=== PATIENT | male | born 1975 | race Caucasian/White ===

== ENCOUNTER 2024-02-03 20:06 | Emergency (ER) | payer BC, SELFPAY ==
[2024-02-03 20:18] VITALS: BP 157/98; PULSE 109; TEMP 37.2; O2SAT 95; BMI 23.7
--- NOTE | 2024-02-03 20:38 | ED_ITS ---
HPI HPI - General Adult General Chief complaint: Skin/Abscess/Foreign Body Stated complaint: POSS ABCESS GONZALEZ Time Seen by Provider: 02/03/24 20:25 Source: patient Mode of arrival: walk-in Limitations: no limitations History of Present Illness HPI narrative: 49-year-old male presents for anal pain. It started today and there was no injury. He has had no bleeding or drainage. He has a history of Crohn's disease and many years ago had an abscess in that area that had to be drained. He has not had fever or abdominal pain or constipation. Related Data Home Medications ?Medication ?Instructions ?Recorded ?Confirmed omeprazole 40 mg capsule,delayed 40 mg PO DAILY 02/03/24 02/03/24 release tamsulosin 0.4 mg capsule 0.4 mg PO Q24H 02/03/24 02/03/24 Previous Rx's ?Medication ?Instructions ?Recorded acetaminophen 300 mg-codeine 30 mg 1 tab PO Q6H PRN pain 5 days #20 02/03/24 tablet tabs ciprofloxacin HCl 500 mg tablet 500 mg PO Q12H #20 tabs 02/03/24 (Cipro) metronidazole 500 mg tablet 500 mg PO TID #30 tabs 02/03/24 Allergies Allergy/AdvReac Type Severity Reaction Status Date / Time No Known Drug Allergies Allergy Verified 02/03/24 20:22 Opioid HPI Opioid Management Most Recent Opioid Data: No Data to Display Review of Systems ROS Narrative A ten point review of systems is negative except as noted above. Exam Narrative Exam Narrative: Nurses note and vital signs reviewed and patient is not hypoxic. General: The patient appears well and in no apparent distress. Patient is resting comfortably on cart. Skin: Warm, dry, no pallor noted. There is no rash noted. Head: Normocephalic, atraumatic Eye: Normal conjunctiva, no drainage Ears, Nose, Mouth, and Throat: oral mucosa is moist. Nares patent. Cardiovascular: Regular Rate and Rhythm Respiratory: Patient is in no distress, no accessory muscle use, lungs are clear to auscultation, no wheezing, rales or rhonchi Back: non-tender GI: Soft and nontender. Perianal exam is carried out. There is no hemorrhoid. He has some very slight tenderness on the left side of the anus. It is not erythematous and there is no open area or drainage or bleeding. Musculoskeletal: The patient has no evidence of calf tenderness, no pitting edema, symmetrical pulses noted bilaterally Neurological: A&O, normal speech Psychiatric: Cooperative Constitutional Vital Signs, click to edit/add: Last Vital Signs Temp 99 F 02/03/24 20:18 Pulse 109 H 02/03/24 20:18 Resp 16 02/03/24 20:18 BP 157/98 H 02/03/24 20:18 Pulse Ox 95 02/03/24 20:18 O2 Del Method Room Air 02/03/24 20:18 Course Vital Signs Vital signs: Vital Signs Temperature 99 F 02/03/24 20:18 Pulse Rate 109 H 02/03/24 20:18 Respiratory Rate 16 02/03/24 20:18 Blood Pressure 157/98 H 02/03/24 20:18 Pulse Oximetry 95 02/03/24 20:18 Oxygen Delivery Method Room Air 02/03/24 20:18 Temperature 99 F 02/03/24 20:18 Pulse Rate 109 H 02/03/24 20:18 Respiratory Rate 16 02/03/24 20:18 Blood Pressure 157/98 H 02/03/24 20:18 Pulse Oximetry 95 02/03/24 20:18 Oxygen Delivery Method Room Air 02/03/24 20:18 Medical Decision Making MDM Narrative Medical decision making narrative: There is no hemorrhoid or abscess present. Incision and drainage is not indicated. 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 He was also recommended warm soaks. Treatment diagnosis and follow-up were discussed with the patient. Differential Diagnosis Differential Diagnosis: Fissure, hemorrhoid, abscess Discharge Plan Discharge Stand Alone Forms: Portal Instructions Chief Complaint: Skin/Abscess/Foreign Body Clinical Impression: Anal pain Patient Disposition: Home, Self-Care Time of Disposition Decision: 20:35 Condition: Good Mode of Transportation: Private Vehicle Prescriptions / Home Meds: New acetaminophen-codeine 300-30 mg tablet 1 tab PO Q6H PRN (Reason: pain) 5 Days Qty: 20 0RF ciprofloxacin HCl [Cipro] 500 mg tablet 500 mg PO Q12H Qty: 20 0RF metronidazole 500 mg tablet 500 mg PO TID Qty: 30 0RF No Action omeprazole 40 mg capsule,delayed release(DR/EC) 40 mg PO DAILY tamsulosin 0.4 mg capsule 0.4 mg PO Q24H Print Language: Albanian Instructions: Rectal Pain (ED) Additional Instructions: Warm soaks for 15 minutes 4 times a day 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
[2024-02-03] MEDS: HYDROCODONE/ACET 5-325 MG TABLET 1 TAB PO (21:11)
[2024-02-03] MEDS: CIPROFLOXACIN HCL 500 MG TABLET PO (21:11)
[2024-02-03] MEDS: METRONIDAZOLE 250 MG TABLET 500 MG PO (21:11)
== END 2024-02-03 21:16 | disposition home or self-care (01) ==
PROVIDERS: Emergency Provider Emergency Medicine; PCP Family Medicine
DX: K62.89 Other specified diseases of anus and rectum (principal); K50.90 Crohn's disease, unspecified, without complications
CPT/HCPCS: 99283

== ENCOUNTER 2024-09-02 09:01 | Outpatient (OUT) | payer BC, SELFPAY ==
--- NOTE | 2024-09-02 | XR_ITS ---
The [address] [address] Patient Name: GRACIELA KANG MRN: [id number] date: 1975 Sex: M Assigned Patient Location: RAD Current Patient Location: [facility] Accession/Order Number: [id number] Exam Date: 09/02/2024 10:06 Report Date: 09/02/2024 11:58 At the request of: JAQUAN JARRELL Procedure: XR lumbar spine min 4V EXAMINATION: XR lumbar spine min 4V HISTORY: LUMBAR PAIN COMPARISON: No relevant comparison available. FINDINGS: BONES: Mild levocurvature centered at T12. Moderate spondylosis and mild facet osteoarthropathy DISC SPACES: Normal. No significant disc height narrowing, subluxation, or endplate abnormality. PARASPINOUS: Negative. No paraspinous abnormality is seen. OTHER: No transient spondylolisthesis with flexion or extension XR/XR lumbar spine min 4V IMPRESSION: Degenerative changes with no dynamic instability Electronically authenticated by: SUAD HOOD Date: 09/02/2024 11:58
--- NOTE | 2024-09-02 09:06 | XR_ITS ---
The [address] [address] Patient Name: GRACIELA KANG MRN: [id number] date: 1975 Sex: M Assigned Patient Location: RAD Current Patient Location: RAD Accession/Order Number: [id number] Exam Date: 09/02/2024 09:15 Report Date: 09/02/2024 09:57 At the request of: JAQUAN JARRELL Procedure: XR foot RT min 3V PROCEDURE: XR foot RT min 3V, XR ankle RT min 3V COMPARISON: None. HISTORY: right foot pain FINDINGS: BONES:No acute fracture or dislocation of the foot or ankle. Moderate osteoarthropathy of the first metatarsal-phalangeal joint with joint space narrowing marginal osteophyte formation SOFT TISSUES:Negative. No visible soft tissue swelling. EFFUSION:None visible. OTHER: Negative. XR/XR foot RT min 3V IMPRESSION: Moderate first metatarsal-phalangeal joint osteoarthritis Electronically authenticated by: SUAD HOOD Date: 09/02/2024 09:57
--- NOTE | 2024-09-02 09:07 | XR_ITS ---
The [address] [address] Patient Name: GRACIELA KANG MRN: [id number] date: 1975 Sex: M Assigned Patient Location: RAD Current Patient Location: RAD Accession/Order Number: [id number] Exam Date: 09/02/2024 09:15 Report Date: 09/02/2024 09:57 At the request of: JAQUAN JARRELL Procedure: XR ankle RT min 3V PROCEDURE: XR foot RT min 3V, XR ankle RT min 3V COMPARISON: None. HISTORY: right foot pain FINDINGS: BONES:No acute fracture or dislocation of the foot or ankle. Moderate osteoarthropathy of the first metatarsal-phalangeal joint with joint space narrowing marginal osteophyte formation SOFT TISSUES:Negative. No visible soft tissue swelling. EFFUSION:None visible. OTHER: Negative. XR/XR ankle RT min 3V IMPRESSION: Moderate first metatarsal-phalangeal joint osteoarthritis Electronically authenticated by: SUAD HOOD Date: 09/02/2024 09:57
== END 2024-09-02 09:02 | disposition home or self-care (01) ==
LOC: RAD 09:01
PROVIDERS: PCP Family Medicine; Visit Provider Podiatrist Foot & Ankle Surgery
DX: M25.571 Pain in right ankle and joints of right foot (principal); M54.50 Low back pain, unspecified; M51.369 Other intervertebral disc degeneration, lumbar region without mention of lumbar back pain or lower extremity pain; M19.071 Primary osteoarthritis, right ankle and foot
CPT/HCPCS: 72110; 73610; 73630

== ENCOUNTER 2024-10-14 06:40 | Outpatient (OUT) | payer BC, SELFPAY ==
--- NOTE | 2024-10-14 06:42 | MR_ITS ---
[address] [address] Patient Name: GRACIELA KANG MRN: [id number] date: 1975 Sex: M Assigned Patient Location: MRI Current Patient Location: MRI Accession/Order Number: [id number] Exam Date: 10/14/2024 14:49 Report Date: 10/14/2024 14:55 At the request of: RUY GRIFFITHS MD Procedure: MR lumbar spine wo con MR lumbar spine wo con 10/14/2024 7:19 AM SIGNS AND SYMPTOMS: ^low back pain without sciatica M54.50 PROTOCOL: Multiplanar multisequence MR images of the lumbar spine were obtained without IV contrast COMPARISON: 09/02/2024 FINDINGS: The bones of the lumbar spine are in anatomic alignment. There is preservation of vertebral body heights. There is mild to moderate intervertebral disc height loss at L5-S1. There is mild intervertebral disc height loss at T12-L1. There is moderate to severe disc height loss at T11-T12. Mild Modic type II fatty endplate degenerative changes are noted at L5-S1 with anterior osteophyte formation. The conus terminates at the superior endplate of the L2 vertebral body level. No epidural or paraspinous fluid collection is appreciated. At T12-L1: There is a broad-based disc bulge contributing to mild spinal canal narrowing with mild left neural foraminal stenosis. At L1-L2: There is a normal disc, central canal, and neural foramen. At L2-L3: There is a normal disc, central canal, and neural foramen. At L3-L4: There is a normal disc, central canal, and neural foramen. At L4-L5: There is a broad-based disc bulge with facet hypertrophy. There is mild spinal canal stenosis with mild bilateral neural foraminal narrowing. At L5-S1: There is a circumferential disc bulge with a focal central disc extrusion along with mild caudal migration. There is mild spinal canal narrowing with mild to moderate bilateral neural foraminal stenosis. MR/MR lumbar spine wo con IMPRESSION: At L5-S1: There is a circumferential disc bulge with a focal central disc extrusion along with mild caudal migration. There is mild spinal canal narrowing with mild to moderate bilateral neural foraminal stenosis. At L4-L5: There is a broad-based disc bulge with facet hypertrophy. There is mild spinal canal stenosis with mild bilateral neural foraminal narrowing. At T12-L1: There is a broad-based disc bulge contributing to mild spinal canal narrowing with mild left neural foraminal stenosis. Impression dictated by: Clemente Austin M.D.10/14/2024 2:55 PM Dictation Location: [place] [address] Electronically authenticated by: [id number] Y Date: 10/14/2024 14:55
--- OUTSIDE RECORDS SUMMARY | 2024-10-14 06:42 | XMS_ITS | CCD ---
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 Attending Unavailable MoJuma jackson A. Admitting Unavailable Jamal Kang MD Primary Care Provider [phone] [facility] PHARMACY RESIDENT-AMMONIA BOX TENDERAnna Unavailable [phone] Juma Yanez A. Attending Unavailable Mouchli, Mohamad A. Admitting Unavailable Mouchli, Mohamad A. Attending Unavailable Mouchli Mohamad A. Attending Unavailable Mouchli, Mohamad A. Attending Unavailable Mouchli, Mohamad A. Referring Unavailable Mouchli, Mohamad A. Admitting Unavailable Mouchli, Mohamad A. Attending Unavailable YOHANA SEWELL Attending Unavailable ANNA CARR Referring Unavailable ANNA CARR Attending Unavailable ANNA CARR Attending Unavailable RAQUEL DEUTSCH Attending Unavailable MARYAN ACEVEDO Attending Unavailable FELTANNA PIERCE A Attending Unavailable Mouchli, Mohamad A. Admitting Unavailable Mouchli, Mohamad A. Attending Unavailable Momeaganli, Mohamad A. Referring Unavailable Deisy Dunaway Attending Unavaila Deisy Kay Attending Unavaila ble Renata Mohamad A. Attending Unavailable Medications Current Medications Medication Drug Class(es) Dates Sig (Normalized) Sig (Original) diphenhydrAMINE hydrochloride 20 mg/ml / zinc acetate 1 mg/ml topical cream (8 sources) Histamine-1 Receptor Antagonist Start: 4 End: 5 diphenhydrAMINE-zinc acetate (Benadryl Extra Strength) cream Indications: Other atopic dermatitis Apply topically 4 (four) times a day as needed for itching 35 g 11 08/12/2024 08/12/2025 Active famotidine 40 mg oral tablet (19 sources) Histamine-2 Receptor Antagonist Start: 3 End: 4 take 1 tablet by mouth at bedtime famotidine (Pepcid) 40 MG tablet Indications: Gastroesophageal reflux disease, unspecified whether esophagitis present TAKE 1 TABLET BY MOUTH AT BEDTIME 90 tablet 3 04/21/2024 Active mesalamine 500 mg extended release oral capsule (20 sources) Aminosalicylate Start: 3 take 2 capsules by mouth four times daily mesalamine 500 mg Cap-ER 1,000 mg = 2 cap(s), Oral, QID, # 720 cap(s), Refills(s) 1, Pharmacy: [facility]/pharmacy #[id number], 182, cm, 02/28/24 8:07:00 EDT, Height/Length Dosing, 79.2, kg, 02/28/24 8:07:00 EDT, Weight Dosing Start Date: 03/10/24 Status: Ordered Start: 10-30-2021 take 2 capsules by m outh four times daily mesalamine 500 mg Cap-ER 1,000 mg = 2 cap(s), Oral, QID, # 240 cap(s), Refills(s) 11, Pharmacy: [facility]/pharmacy #[id number], 182, cm, 10/30/21 10:41:00 EST, Height/Length Dosing, 81.5, kg, 10/30/21 10:41:00 EST, Weight Dosing Start Date: 10/30/21 Status: Ordered omeprazole 40 mg delayed release oral capsule (20 sources) Proton Pump Inhibitor Start: 05-26-2022 take 1 capsule by mouth before mealtime omeprazole (PriLOSEC) [address] capsule Indications: Gastroesophageal reflux disease, unspecified whether esophagitis present Take 1 capsule (40 mg) by mouth in the morning. Take before meals. Do not crush or chew.. 90 capsule 3 02/21/2024 Active omeprazole 40 mg Cap-DR (3 sources) Start: 11-28-2021 End: 05-27-2022 take 1 capsule by mouth once daily omeprazole 40 mg Cap-DR 40 mg = 1 cap(s), Oral, Daily, X 90 day(s), # 90 cap(s), Refills(s) 1, Pharmacy: [facility]/pharmacy #[id number], 182, cm, 10/30/21 10:41:00 EST, Height/Length Dosing, 81.5, kg, 10/30/21 10:41:00 EST, Weight Dosing Start Date: 11/28/21 Stop Date: 05/27/22 Status: Ordered polyethylene glycol 3350 [id number] mg / potassium chloride 1480 mg / sodium bicarbonate 5720 mg / sodium chloride 41560 mg powder for oral solution (1 source) Osmotic Laxative Start: 12-20-2022 take 1 dose by mouth once NuLYTELY Traverse oral powder for reconstitution See Instructions, 1 EA, Refill(s) 0, Per physician instructions, prior to colonoscopy., [facility]/pharmacy #[id number], 182, cm, 12/20/22 13:35:00 EDT, Height/Length Dosing, 77.7, kg, 12/20/22 13:35:00 EDT, Weight Dosing Start Date: 12/20/22 Status: Ordered predniSONE 20 mg oral tablet (8 sources) Start: 08-12-2024 End: 09-17-2024 predniSONE (Deltasone) 20 MG tablet Indications: Other atopic dermatitis 2 tablets for 7 days and then 1 tablet for 7 days 21 tablet 08/12/2024 09/17/2024 Discontinued (Therapy completed) tacrolimus 0.001 mg/mg topical ointment (8 sources) Calcineurin Inhibitor Immunosuppressant Start: 08-03-2024 tacrolimus (Protopic) 0.1 % ointment APPLY TO AFFECTED AREA EVERY 12 HOURS *HOLD WHEN CLEAR* 08/03/2024 Active tamsulosin hydrochloride 0.4 mg oral capsule (20 sources) alpha-Adrenergic Theresa Start: 01-11-2021 take 1 capsule by mouth once daily tamsulosin (Flomax) 0.4 MG 24 hr capsule Indications: Benign prostatic hyperplasia without lower urinary tract symptoms Take 1 capsule (0.4 mg) by mouth Daily 90 capsule 3 02/21/2024 Active triamcinolone acetonide 1 mg/ml topical cream (10 sources) Corticosteroid triamcinolone (Kenalog) 0.1 % cream 1 application 1 (one) time each day at the same time. Active Problems Active Problems Problem Classification Problem Date Documented Da te Episodic/Chronic Allergic reactions (8 sources) Atopic dermatitis; Translations: [Other atopic dermatitis] 08-12-2024 Chronic Anal and rectal conditions (7 sources) Anal pain 02-20-2024 Episodic Esophageal disorders (20 sources) Gastroesophageal reflux disease; Translations: [Gastroesophageal reflux disease without esophagitis] Onset: 3 02-16-2021 Chronic Essential hypertension (7 sources) Essential hypertension 02-20-2024 Chronic Other and unspecified benign neoplasm (15 sources) Polyp of colon; Translations: [Polyp of colon] Onset: 3 04-19-2021 Episodic Other disorders of stomach and duodenum (7 sources) Indigestion 02-20-2024 Episodic Other gastrointestinal disorders (2 sources) Abnormal feces; Translations: [Other fecal abnormalities] Onset: Episodic Other gastrointestinal disorders (6 sources) Loose stool 02-28-2024 Episodic Regional enteritis and ulcerative colitis (16 sources) Regional ileocolitis; Translations: [Crohn's disease of small AND large intestines] Onset: 3 02-16-2021 Chronic Residual codes; unclassified (1 source) Tobacco user 08-14-2024 Episodic Past or Other Problems Problem Classification Problem Date Documented Da te Episodic/Chronic Nausea and vomiting (7 sources) Nausea and vomiting Onset: 10-30-2021 02-20-2024 Episodic Results Test Name Value Interpretation Reference Range Facility Patient Letter FTon 2024 Patient Letter [facility] Patient [place] [facility] September 21, 2024 GRACIELA KANG [address] [place] [id number] : 1975 [address] way concern, the above patient has been our care here at [facility] since 2020 for diagnosis of Crohn's disease (Chronic inflammatory bowel disease). Patient has been treated with oral therapy in the past and is now being treated with Hadlima until further notice. If there are any further questions, concerns or any issues please contact our office at [phone]. Thank you, [facility] Juma Yanez MD Normal [facility] Lab Miscellaneous-LCon 08-18 Lab Miscellaneous COMMENT Invalid Interpretation Code [facility] Comment on above: Result Comment: Test Ordered: [id number] TPMT and NUDT15 Genotyping TPMT Genotype *1/*1 L9 This test was developed and its performance characteristics determined by [facility]. It has not been cleared or approved by the Food and Drug Administration. TPMT Metabolic Activity Normal L9 This test was developed and its performance characteristics determined by [facility]. It has not been cleared or approved by the Food and Drug Administration. NUDT15 Genotype *1/*1 L9 This test was developed and its performance characteristics determined by [facility]. It has not been cleared or approved by the Food and Drug Administration. NUDT15 Metabolic Activity Normal L9 This test was developed and its performance characteristics determined by [facility]. It has not been cleared or approved by the Food and Drug Administration. Director Review Comment L9 Roger Brody MD, PhD Director Warp 9 Interpretation Comment L9 The thiopurine methyltransferase (TPMT) and nudix hydrolase (NUDT15) genes encode drug-metabolizing enzymes involved in the metabolism of several clinically important drugs including the immunosuppressants azathioprine, mercaptopurine and thioguanine. The TPMT and NUDT15 enzymes have similar functions in a shared thiopurine-metabolizing pathway; genotype and metabolic activity for TPMT and NUDT15 may therefore be considered together when assessing possible effects on drug response. Individuals with some variant TPMT and NUDT15 alleles may experience a reduced therapeutic response and may be at risk for side effects from drugs that are metabolized by TPMT and NUDT15. TPMT and NUDT15 genotype information can be utilized to predict TPMT and NUDT15 metabolic activity which can be used as an aid in determining a therapeutic strategy for drugs that are metabolized by TPMT and NUDT15. For example, thiopurine use in an individual with poor or intermediate TPMT and/or NUDT15 metabolism is associated with an accumulation of cytotoxic metabolites and an increased risk for myelosuppression. In these instances, alternative doses or drugs may be considered. .... Variation in the TPMT and NUDT15 genes can result in normal (NM), intermediate (IM), possible intermediate (Poss IM), poor (PM) and indeterminate (IND) drug-metabolizing phenotypes. In general, relative to the *1 allele (normal function), TPMT *2, *3A, *3B, *3C and NUDT15 *2 and *3 alleles have no function whilst the NUDT15*4 allele has an uncertain function. The exact effect of a particular genotype on individual drugs can vary. In addition to genotype, the metabolism of drugs may be influenced by additional factors that include environmental, dietary and other medications; these factors and others should be considered prior to initiating a new therapy. All results must be interpreted in the context of other test results and clinical findings. Results do not rule out the possibility of other variant alleles in TPMT and NUDT15 or variant alleles in other drug metabolism pathways. Patients should speak with their health care provider about the individual results of this test. TPMT and NUDT15 Information Comment L9 Methodology: ... DNA analysis is performed by allele-specific real-time polymerase chain reactions (RT-PCR) to detect single-nucleotide polymorphisms (SNPs) within the TPMT and NUDT15 genes and to assign variant TPMT *2, *3A, *3B and *3C and NUDT15 *2 or *3 and *4 alleles. *1 denotes detection of the reference (wild-type) sequence at the assessed alleles. No other variants in this gene are detected by this assay. ... This assay cannot distinguish between NUDT15 *2 and *3 alleles, genotype reported as *2 or *3; this distinction is not thought to be clinically relevant because both have no function. This assay is also unable to distinguish between the more likely TPMT *1/*3A genotype (intermediate TPMT activity) and the very rare TPMT *3B/*3C genotype (poor TMPT activity), genotype reported as *1/*3A or unlikely *3B/*3C, metabolic activity reported as likely intermediate; these possibilities can be distinguished by testing TPMT enzyme levels [Test #607651]. ... Molecular-based testing is highly accurate, but as in any laboratory test rare diagnostic errors may occur. ... References: ... 1. https://www.fda.gov/medical-devices/precision-medicine/table- pharmacogenetic-association. 2. Cheryl PARRA., Brien Hull, Josue Hull, et al. Clinical Pharmacogenetics Implementation Consortium Guideline for Thiopurine Dosing Based on TPMT and NUDT15 Genotypes: 2018 Update. Clinical Pharmacology and Therapeutics. 2019; Vol 105(5). 3. ALMA Higgins., Carleen FLYNN., Celso FARIAS., et al. TPMT and NUDT15 Genotyping Recommendations: A Joint Consensus Recommendation of the Association for Molecular Pathology, Clinical Pharmaco- genetics Implementation Consortium, [employer], Dut (more content not included)... Performed By: #### 1 [id number] #### [facility] [address] [place] [address] Gastroenterology Office/Clin ic Noteon 08-14-2024 Gastroenterology Office/Clinic Note Gastroenterology Office/Clinic Note Chief Complaint Crohns follow up- diarrhrea HPI Staff Patient is a(n) 49 year old male who presents today for a(n) 4 month follow-up. Any IBD symptoms? Diarrhea and loose stool Denies blood thinners. Denies GLP-1 agonists. Last visit w/Dr. Yanez: Assessment/Plan 1. Crohn's disease of both small and large intestine (K50.80: Crohn's disease of both small and large intestine without complications) 2. Acid reflux (K21.9: Gastro-esophageal reflux disease without esophagitis) 3. Colon polyp (K63.5: Polyp of colon) 4. Loose stools (R19.5: Other fecal abnormalities) Advised to take Pentasa 4 g all at once Check CBC, CMP, iron studies, vitamin D levels, CRP, stool calprotectin, hep B panel, QuantiFERON, and TPMT Follow-up after 4 to 5 months to determine about repeating colonoscopy based on the above results Last colonoscopy 03/23/24 Findings 1.patchy inflammation in the colon with small ulcers consistent with hx of CD s/p biopsies 2. patchy erythema in the TI s/p biopsies 3. internal hemorrhoids on retroflexion Impression and Plan Colitis and ileitis consistent with hx of CD s/p biopsies internal hemorrhoids Pathology: Diagnosis Comment (Verified) Histological findings are consistent with inflammatory bowel disease. The patient's history of Crohn disease is noted. Recommend clinical, endoscopic and pathologic correlation. Final Diagnosis (Verified) A: TERMINAL ILEUM, BIOPSY: - Small bowel mucosa with increased lymphoplasmacytic infiltrate in lamina propria and focal mucosal erosion. - No evidence of granulomas, dysplasia or malignancy identified. B: COLON, RIGHT, BIOPSY: - Benign colonic mucosa with lymphoid aggregates and increased lymphoplasmacytic infiltrate in lamina propria. - No evidence of granulomas, dysplasia or malignancy identified. C: COLON, LEFT, BIOPSY: - Moderate chronic active colitis. - No evidence of granulomas, dysplasia or malignancy identified. - See Comment. D: COLON, TRANSVERSE, BIOPSY: - Benign colonic mucosa with lymphoid aggregate, increased lymphoplasmacytic infiltrate in lamina propria and focal architectural disarray. - No evidence of granulomas, dysplasia or malignancy identified. - See comment E: RECTUM, BIOPSY: - Benign colonic mucosa with increased lymphoplasmacytic infiltrate in lamina propria and focal architectural disarray. - No evidence of granulomas, dysplasia or malignancy identified - See comment. Last EGD w/ Dr Smith 12/26/21 1. Normal esophagus, z-line noted at 35cm. 2. Normal gastric mucosa, random gastric biopsies obtained for H pylori. 3. Small hiatal hernia, 2cm 4. Normal duodenum Pathology: Diagnosis Comment (Verified) No H. pylori microorganisms identified with immunostain. Final Diagnosis (Verified) STOMACH, BIOPSY: ??? GASTRIC MUCOSA WITH MILD CHRONIC INFLAMMATION IN LAMINA PROPRIA. ??? PROTON PUMP INHIBITOR INDUCED CHANGES SUGGESTED. CTE 03/13/24 IMPRESSION: NO ACUTE ABDOMINOPELVIC PROCESS. GES 12/18/21 IMPRESSION: GASTRIC EMPTYING WITHIN NORMAL LIMITS. Laboratory Results CBC CMP Basophil Absolute: 0.1 E9/L (08/07/24) A/G Ratio: 1.3 (08/07/24) Basophil Auto: 0.8 % (08/07/24) AGAP: 12 mEq/L (08/07/24) Eos Absolute: 0.2 E9/L (08/07/24) Albumin Lvl: 4.5 gm/dL (08/07/24) Eos Auto: 2.7 % (08/07/24) Alk Phos: 66 Int._Unit/L (08/07/24) Hct: 42.8 % (08/07/24) ALT: 37 Int._Unit/L (08/07/24) HGB: 15 gm/dL (08/07/24) AST: 46 Int._Unit/L High (08/07/24) Lymph Absolute: 1.9 E9/L (08/07/24) Bili Total: 0.7 mg/dL (08/07/24) Lymph Auto: 26.1 % (08/07/24) BUN: 4 mg/dL Low (08/07/24) MCH: 36.7 pg High (08/07/24) BUN/Creat Ratio: 6 Low (08/07/24) MCHC: 35.1 gm/dL (08/07/24) Calcium Lvl: 9.3 mg/dL (08/07/24) MCV: 104.5 fL High (08/07/24) Chloride: 99 mmol/L Low (08/07/24) [place] Absolute: 0.5 E9/L (08/07/24) CO2: 29 mmol/L (08/07/24) [place] Auto: 6.9 % (08/07/24) Creatinine: 0.7 mg/dL (08/07/24) MPV: 7.1 fL (08/07/24) Globulin: 3.5 gm/dL (08/07/24) Neutro Absolute: 4.5 E9/L (08/07/24) Glucose Lvl: 133 mg/dL (08/07/24) Neutro Auto: 63.5 % (08/07/24) Potassium Lvl: 3.6 mmol/L (08/07/24) Platelet: 232 E9/L (08/07/24) Sodium Lvl: 136 mmol/L (08/07/24) RBC: 4.1 E12/L Low (08/07/24) Total Protein: 8 gm/dL High (08/07/24) RDW: 12.7 % (08/07/24) WBC: 7.2 E9/L (08/07/24) Liver Studies Ferritin Lvl: 175 ng/mL (08/07/24) HCV Ab: Non Reactive (08/07/24) Hep A IgM: Negative (08/07/24) Hep B Core IgM: Negative (08/07/24) Hep Bs Ag: Negative (08/07/24) Iron: 210 mcg/dL High (08/07/24) TIBC: 305 mcg/dL (08/07/24) Hep C quant: HCV not detected Transferrin: 218 (08/07/24) Folate: 18.9 (08/07/24) Vitamin B12: 368 (08/07/24) Vitamin D: 37.4 (08/07/24) Chol: 157 (08/07/24) Tri High (08/07/24) HDL: 90 (08/07/24) LDL: 48 (08/07/24) VLDL: 37 (08/07/24) CRP: 0.2(08/07/24) Quantiferon: Negative Stool calprotectin not do (more content not included)... Normal [facility] Comment on above: Result Comment: Elec tronically Signed By: Renata ARRIETA, Juma Mcadams\.br\Date and Time Signed: 08/14/24 08:51 EST Patient Letter FTon 2023 Patient Letter [facility] [place] Patient [place] [facility] August 14, 2024 [place] [address] : 1975 To whom this may concerns, patient is treated at [facility] for management of his Crohn's disease. If there are any further question or concerns, please give us a call at [phone]. [facility] Juma Yanez MD Normal [facility] Provider Letteron 08-14-2024 Provider Letter Provider Letter August 14, 2024 [place] [address] : 1975 To Whom It May Concern, Please excuse above patient from work. Due to being seen in our office, if you have any question's feel nain to call our office. Date of Illness:08/14/24 From: _08/14/24 To: _08/14/24 Sincerely, [facility] [phone] Normal [facility] Quantiferon-TB Plus (Client Incubated)on 08-11-2024 Gamma interferon background IA Qn (Bld) 0.00 International_Unit/mL Invalid Interpretation Code [facility] Comment on above: Performed By: #### 1 [id number] #### [facility] [address] [place] [address] M. tuberculosis stim IFN-g by CD4+ CD8+ T-cells corrected for background Qn (Bld) 0.00 International_Unit/mL Invalid Interpretation Code [facility] Comment on above: Performed By: #### 1 [id number] #### [facility] [address] [place] [address] M. tuberculosis stim IFN-g by CD4+ T-cells corrected for background Qn (Bld) 0.00 International_Unit/mL Invalid Interpretation Code [facility] Comment on above: Performed By: #### 1 [id number] #### [facility] [address] [place] [address] M. tuberculosis stim IFN-g Ql (Bld) [Interp] Negative Invalid Interpretation Code Negative [facility] Comment on above: Result Comment: No r esponse to M tuberculosis antigens detected. Infection with M tuberculosis is unlikely, but high risk individuals should be considered for additional testing (ATS/IDSA/CDC Clinical Practice Guidelines, 2017). The reference range is an Antigen minus Nil result of <0.35 IU/mL. The specimen received for QuantiFERON testing was incubated by the ordering institution. Specific procedures outlined in our Directory of Services and in the package insert for the QuantiFERON Gold (In Tube) test must be followed to enable for proper stimulation of cells for the production of interferon gamma. Chemiluminescence immunoassay methodology Performed at: [facility] [id number] PhD Brandin Garay Performed By: #### 1 [id number] #### [facility] [address] [place] [address] Mitogen stimulated gamma interferon corrected for background Qn (Bld) >10.00 Invalid Interpretation Code [facility] Comment on above: Performed By: #### 1 [id number] #### [facility] [address] [place] [address] Service comment (Unsp spec) [Interp] Comment Invalid Interpretation Code [facility] Comment on above: Result Comment: Nicholas tiFERON-TB Gold Plus is a qualitative indirect test for M tuberculosis infection (including disease) and is intended for use in conjunction with risk assessment, radiography, and other medical and diagnostic evaluations. The QuantiFERON-TB Gold Plus result is determined by subtracting the Nil value from either TB antigen (Ag) value. The Mitogen tube serves as a control for the test. Performed By: #### 1 [id number] #### [facility] [address] [place] [address] .Interpretation:on HCV Ab IA Ql Comment Invalid Interpretation Code [facility] Comment on above: Result Comment: Not infected with HCV unless early or acute infection is suspected (which may be delayed in an immunocompromised individual), or other evidence exists to indicate HCV infection. Performed at: [facility] [address] [place] [address] [id number] PhD Brandin Garay Performed By: #### 2 [id number] #### [facility] [address] [place] [address] Acute Hepatitis A B C Panelo n 08-09-2024 HAV IgM IA Ql Negative Invalid Interpretation Code Negative [facility] Comment on above: Result Comment: A ne gative anti-HAV IgM result suggests no recent or current HAV infection. Performed By: #### 3 [id number] #### [facility] [address] [place] [address] HBV core IgM IA Ql Negative Invalid Interpretation Code Negative [facility] Comment on above: Performed By: #### 3 [id number] #### [facility] [address] [place], [place] [id number] HBV surface Ag IA Ql Negative Invalid Interpretation Code Negative [facility] Comment on above: Performed By: #### 3 [id number] #### [facility] [address] [place], [place] [id number] HCV IgG IA Ql Non-Reactive Invalid Interpretation Code Non Reactive [facility] Comment on above: Result Comment: Perf ormed at: [facility] [address] [id number] PhD Brandin Garay Performed By: #### 3 [id number] #### [facility] [address] [place] [id number] HCV RT-PCR, Quant (Non-Graph )on 08-09-2024 HCV RNA TACO+probe Qn Not detected Invalid Interpretation Code [facility] Comment on above: Performed By: #### 1 [id number] #### [facility] [address] [place] [address] Reference Lab Test Reference Range Comment Invalid Interpretation Code [facility] Comment on above: Result Comment: The quantitative range of this assay is 15 IU/mL to 100 million IU/mL. Performed at: [facility] [address] [place], [place] [id number] MD Kendrick Alamo Performed By: #### 1 [id number] #### [facility] [address] [place] [address] Hep Bs Abon 08-09-2024 HBV surface Ab Ql (S) Non-Reactive Invalid Interpretation Code [facility] Comment on above: Result Comment: Non Reactive: Not immune to HBV infection. Equivocal: Unable to determine if anti-HBs is present at levels consistent with immunity. Reactive: Anti-HBs concentration detected at greater than 10 mIU/mL. Individual is considered to be immune to infection with HBV. Performed at: [facility] [id number] PhD Brandin Garay Performed By: #### 2 [id number] #### [facility] [address] [place] [address] CBC w/ Auto Diffon 4 Basophils/100 WBC (Bld) 0.8 % Normal 0.0-2.0 [facility] Comment on above: Performed By: #### 2 [id number] #### [facility] [address] [place] [address] Basophils/Leukocyte s Auto (Bld) [Pure # fraction] 0.1 E9/L Normal 0.0-0.2 [facility] Comment on above: Performed By: #### 2 [id number] #### [facility] [address] [place] [address] Eosinophils (Bld) [#/Vol] 0.2 E9/L Normal 0.0-0.5 [facility] Comment on above: Performed By: #### 2 [id number] #### [facility] [address] [place] [address] Eosinophils/100 WBC (Bld) 2.7 % Normal 0.0-8.0 [facility] Comment on above: Performed By: #### 2 [id number] #### [facility] [address] [place] [address] Erythrocyte distribution width (RBC) [Ratio] 12.7 % Normal 10.9-14.2 [facility] Comment on above: Performed By: #### 2 [id number] #### [facility] [address] [place] [address] Hematocrit (Bld) [Volume fraction] 42.8 % Normal 37.7-49.0 [facility] Comment on above: Performed By: #### 2 [id number] #### [facility] [address] [place] [address] Hemoglobin (Bld) [Mass/Vol] 15.0 g/dL Normal 13.5-17.5 [facility] Comment on above: Performed By: #### 2 [id number] #### [facility] [address] [place] [address] Lymphocytes (Bld) [#/Vol] 1.9 E9/L Normal 1.0-4.0 [facility] Comment on above: Performed By: #### 2 [id number] #### [facility] [address] [place] [address] Lymphocytes/100 WBC (Bld) 26.1 % Normal 14.0-50.0 [facility] Comment on above: Performed By: #### 2 [id number] #### [facility] [address] [place] [address] MCH (RBC) [Entitic mass] 36.7 pg High 27.0-34.0 [facility] Comment on above: Performed By: #### 2 [id number] #### [facility] [address] [place] [address] MCHC (RBC) [Mass/Vol] 35.1 g/dL Normal 31.4-36.0 [facility] Comment on above: Performed By: #### 2 [id number] #### [facility] [address] [place] [address] MCV (RBC) [Entitic vol] 104.5 fL High 80.0-100.0 [facility] Comment on above: Performed By: #### 2 [id number] #### [facility] [address] [place] [address] Monocytes (Bld) [#/Vol] 0.5 E9/L Normal 0.2-1.0 [facility] Comment on above: Performed By: #### 2 [id number] #### [facility] [address] [place] [address] Neutrophils (Bld) [#/Vol] 4.5 E9/L Normal 2.0-7.5 [facility] Comment on above: Performed By: #### 2 [id number] #### [facility] [address] [place] [address] Neutrophils/100 WBC (Bld) 63.5 % Normal 36.0-75.0 [facility] Comment on above: Performed By: #### 2 [id number] #### [facility] [address] [place] [address] Platelet mean volume (Bld) [Entitic vol] 7.1 fL Normal 6.4-10.8 [facility] Comment on above: Performed By: #### 2 [id number] #### [facility] [address] [place] [address] Platelets (Bld) [#/Vol] 232.0 E9/L Normal 150.0-500.0 [facility] Comment on above: Performed By: #### 2 [id number] #### [facility] [address] [place] [address] RBC (Bld) [#/Vol] 4.1 E12/L Low 4.3-5.9 [facility] Comment on above: Performed By: #### 2 [id number] #### [facility] [address] [place] [address] WBC corrected for nucl RBC Auto (Bld) [#/Vol] 7.2 E9/L Normal 4.0-11.0 [facility] Comment on above: Performed By: #### 2 [id number] #### [facility] [address] [place] [address] CHEMISTRYOrdered By: SYSTEM SYSTEM on 08-07-2024 25-hydroxyvitamin D3 [Mass/Vol] 37.4 ng/mL Normal 30.0 - 100.0 ng/mL [facility] Albumin [Mass/Vol] 4.5 g/dL Normal 3.3 - 5.0 gm/dL [facility] Albumin/Globulin [Mass ratio] 1.3 {ratio} Normal 1.1 - 2.2 [facility] ALP [Catalytic activity/Vol] 66 [iU]/d Normal 21 - 98 Int._Unit/L [facility] ALT No additional P-5'-P [Catalytic activity/Vol] 37 [iU]/d Normal 6 - 46 Int._Unit/L [facility] Anion gap [Moles/Vol] 12 mmol/L Normal 6 - 16 mEq/L [facility] AST [Catalytic activity/Vol] 46 [iU]/d High 5 - 43 Int._Unit/L [facility] Bilirubin [Mass/Vol] 0.7 mg/dL Normal 0.0 - 1.1 mg/dL [facility] Calcium [Mass/Vol] 9.3 mg/dL Normal 8.9 - 11. 1 mg/dL [facility] Chloride [Moles/Vol] 99 mmol/L Low 101 - 111 mmol/L [facility] Cholesterol [Mass/Vol] 157 mg/dL Normal 120 - 200 mg/dL [facility] Cholesterol in HDL [Mass/Vol] 90 mg/dL Invalid Interpretation Code [facility] Comment on above: Result Comment: '>= 60 LOW RISK' '<= 40 HIGH RISK' Cholesterol in LDL [Mass/Vol] 48 mg/dL Normal <=129mg/dL [facility] Cholesterol in VLDL [Mass/Vol] 37 mg/dL Normal 7 - 40 mg/dL [facility] CO2 [Moles/Vol] 29 mmol/L Normal 21 - 31 mmol/L [facility] Cobalamin (Vitamin B12) [Mass/Vol] 368 pg/mL Normal 50 - 1500 pg/mL [facility] Creatinine [Mass/Vol] 0.7 mg/dL Normal 0.5 - 1.3 mg/dL [facility] CRP [Mass/Vol] 0.2 mg/dL Normal <=1.9mg/dL [facility] eGFR 112 mL/min/1.73 m2 Normal >=59mL/mi n/ 1.73 m2 [facility] Ferritin [Mass/Vol] 175 ng/mL Normal 24 - 336 ng/mL [facility] Folate [Mass/Vol] 18.9 ng/mL Normal >=6.7ng/mL [facility] Globulin (S) [Mass/Vol] 3.5 g/dL Normal 1.4 - 4.0 gm/dL [facility] Glucose [Mass/Vol] 133 mg/dL Normal 55 - 199 mg/dL [facility] Iron [Mass/Vol] 210 ug/dL High 35 - 153 mcg/dL [facility] Iron binding capacity [Mass/Vol] 305 ug/dL Normal 250 - 400 mcg/dL [facility] Potassium [Moles/Vol] 3.6 mmol/L Normal 3.5 - 5.3 mmol/L [facility] Protein [Mass/Vol] 8.0 g/dL High 6.0 - 7.8 gm/dL [facility] Sodium [Moles/Vol] 136 mmol/L Normal 135 - 145 mmol/L [facility] Transferrin [Mass/Vol] 218 mg/dL Normal 200 - 370 mg/dL [facility] Triglyceride [Mass/Vol] 186 mg/dL High <=149mg/dL [facility] Urea nitrogen [Mass/Vol] 4 mg/dL Low 5 - 21 mg/dL [facility] Urea nitrogen/Creatinine [Mass ratio] 6 mg/mg Low 10 - 20 [facility] CMPon 08-07-2024 Albumin [Mass/Vol] 4.5 g/dL Normal 3.3-5.0 [facility] Comment on above: Performed By: #### 2 [id number] #### [facility] [address] [place] [address] Albumin/Globulin (S) [Mass conc ratio] 1.3 Normal 1.1-2.2 [facility] Comment on above: Performed By: #### 2 [id number] #### [facility] [address] [place] [address] ALP [Catalytic activity/Vol] 66 Int._Unit/L Normal 21-98 [facility] Comment on above: Performed By: #### 2 [id number] #### [facility] [address] [place] [address] ALT No additional P-5'-P [Catalytic activity/Vol] 37 Int._Unit/L Normal 6-46 [facility] Comment on above: Performed By: #### 2 [id number] #### [facility] [address] [place] [address] Anion gap [Moles/Vol] 12 mmol/L Normal 6-16 [facility] Comment on above: Performed By: #### 2 [id number] #### [facility] [address] [place] [address] AST [Catalytic activity/Vol] 46 Int._Unit/L High 5-43 [facility] Comment on above: Performed By: #### 2 [id number] #### [facility] [address] [place] [address] Bilirubin [Mass/Vol] 0.7 mg/dL Normal 0.0-1.1 [facility] Comment on above: Performed By: #### 2 [id number] #### [facility] [address] [place] [address] Calcium [Mass/Vol] 9.3 mg/dL Normal 8.9-11.1 [facility] Comment on above: Performed By: #### 2 [id number] #### [facility] [address] [place] [address] Chloride [Moles/Vol] 99 mmol/L Low 101-111 [facility] Comment on above: Performed By: #### 2 [id number] #### [facility] [address] [place] [address] CO2 [Moles/Vol] 29 mmol/L Normal 21-31 [facility] Comment on above: Performed By: #### 2 [id number] #### [facility] [address] [place] [address] Creatinine [Mass/Vol] 0.7 mg/dL Normal 0.5-1.3 [facility] Comment on above: Performed By: #### 2 [id number] #### [facility] [address] [place] [address] Globulin (S) [Mass/Vol] 3.5 g/dL Normal 1.4-4.0 [facility] Comment on above: Performed By: #### 2 [id number] #### [facility] [address] [place] [address] Glucose [Mass/Vol] 133 mg/dL Normal 55-199 [facility] Comment on above: Performed By: #### 2 [id number] #### [facility] [address] [place] [address] Potassium [Moles/Vol] 3.6 mmol/L Normal 3.5-5.3 [facility] Comment on above: Performed By: #### 2 [id number] #### [facility] [address] [place] [address] Protein [Mass/Vol] 8.0 g/dL High 6.0-7.8 [facility] Comment on above: Performed By: #### 2 [id number] #### [facility] [address] [place] [address] Sodium [Moles/Vol] 136 mmol/L Normal 135-145 [facility] Comment on above: Performed By: #### 2 [id number] #### [facility] [address] [place] [address] Urea nitrogen [Mass/Vol] 4 mg/dL Low 5-21 [facility] Comment on above: Performed By: #### 2 [id number] #### [facility] [address] [place] [address] Urea nitrogen/Creatinine [Mass ratio] 6 No Units Low 10-20 [facility] Comment on above: Performed By: #### 2 [id number] #### [facility] [address] [place] [address] CRPon 08-07-2024 CRP [Mass/Vol] 0.2 mg/dL Normal <=1.9 [facility] Comment on above: Performed By: #### 2 [id number] #### [facility] [address] [place] [address] Ferritinon 08-07-2024 Ferritin [Mass/Vol] 175 ng/mL Normal 24-336 [facility] Comment on above: Performed By: #### 2 [id number] #### [facility] [address] [place] [address] Folateon 08-07-2024 Folate [Mass/Vol] 18.9 ng/mL Normal >=6.7 [facility] Comment on above: Performed By: #### 2 [id number] #### [facility] [address] [place] [address] HEMATOLOGYOrdered By: SYSTEM SYSTEM on 08-07-2024 Basophils/100 WBC (Bld) 0.8 % Normal 0.0 - 2.0 % [facility] Basophils/Leukocyte s Auto (Bld) [Pure # fraction] 0.1 E9/L Normal 0.0 - 0.2 E9/L [facility] Eosinophils (Bld) [#/Vol] 0.2 E9/L Normal 0.0 - 0.5 E9/L [facility] Eosinophils/100 WBC (Bld) 2.7 % Normal 0.0 - 8.0 % [facility] Erythrocyte distribution width (RBC) [Ratio] 12.7 % Normal 10.9 - 14.2 % [facility] Hematocrit (Bld) [Volume fraction] 42.8 % Normal 37.7 - 49.0 % [facility] Hemoglobin (Bld) [Mass/Vol] 15.0 g/dL Normal 13.5 - 17.5 gm/dL [facility] Lymphocytes (Bld) [#/Vol] 1.9 E9/L Normal 1.0 - 4.0 E9/L [facility] Lymphocytes/100 WBC (Bld) 26.1 % Normal 14.0 - 50.0 % [facility] MCH (RBC) [Entitic mass] 36.7 pg High 27.0 - 34.0 pg [facility] MCHC (RBC) [Mass/Vol] 35.1 g/dL Normal 31.4 - 36.0 gm/dL [facility] MCV (RBC) [Entitic vol] 104.5 fL High 80.0 - 100.0 fL [facility] Monocytes (Bld) [#/Vol] 0.5 E9/L Normal 0.2 - 1.0 E9/L [facility] Monocytes/100 WBC (Bld) 6.9 % Normal 4.0 - 14.0 % [facility] Neutrophils (Bld) [#/Vol] 4.5 E9/L Normal 2.0 - 7.5 E9/L [facility] Neutrophils/100 WBC (Bld) 63.5 % Normal 36.0 - 75.0 % [facility] Platelet mean volume (Bld) [Entitic vol] 7.1 fL Normal 6.4 - 10.8 fL [facility] Platelets (Bld) [#/Vol] 232.0 E9/L Normal 150.0 - 500.0 E9/L [facility] RBC (Bld) [#/Vol] 4.1 E12/L Low 4.3 - 5.9 E12/L [facility] WBC corrected for nucl RBC Auto (Bld) [#/Vol] 7.2 E9/L Normal 4.0 - 11.0 E9/L [facility] Ironon 08-07-2024 Iron [Mass/Vol] 210 microgram/dL High 35-153 [facility] Comment on above: Performed By: #### 2 [id number] #### [facility] [address] [place] [address] Lab Miscellaneous-LCon 08-07 Test Code 104742 Invalid Interpretation Code [facility] Comment on above: Performed By: #### 1 [id number] #### [facility] [address] [place] [address] Test Name TPMT genotyping Invalid Interpretation Code [facility] Comment on above: Performed By: #### 1 [id number] #### [facility] [address] [place] [address] Lipid Panelon 08-07-2024 Cholesterol [Mass/Vol] 157 mg/dL Normal 120-200 [facility] Comment on above: Performed By: #### 2 [id number] #### [facility] [address] [place] [address] Cholesterol in HDL [Mass/Vol] 90 mg/dL Invalid Interpretation Code [facility] Comment on above: Result Comment: '>= 60 LOW RISK' '<= 40 HIGH RISK' Performed By: #### 2 [id number] #### [facility] [address] [place] [address] Cholesterol in LDL [Mass/Vol] 48 mg/dL Normal <=129 [facility] Comment on above: Performed By: #### 2 [id number] #### [facility] [address] [place] [address] Cholesterol in VLDL [Mass/Vol] 37 mg/dL Normal 7-40 [facility] Comment on above: Performed By: #### 2 [id number] #### [facility] [address] [place] [address] Triglyceride [Mass/Vol] 186 mg/dL High <=149 [facility] Comment on above: Performed By: #### 2 [id number] #### [facility] [address] [place] [address] Reference Laboratory Testing Ordered By: Chitra Krishnamurthy on 08-07-2024 Test Code 722131 1 Invalid Interpretation Code [facility] Test Name TPMT genotyping Invalid Interpretation Code [facility] TIBC Calculatedon 08-07-2024 Iron binding capacity [Mass/Vol] 305 microgram/dL Normal 250-400 [facility] Comment on above: Performed By: #### 1 [id number] #### [facility] [address] [place] [address] Transferrin [Mass/Vol] 218 mg/dL Normal 200-370 [facility] Comment on above: Performed By: #### 1 [id number] #### [facility] [address] [place] [address] Vit B12on 08-07-2024 Cobalamin (Vitamin B12) [Mass/Vol] 368 pg/mL Normal 50-1500 [facility] Comment on above: Performed By: #### 2 [id number] #### [facility] [address] [place] [address] Vitamin D 25 Hydroxyon 08-07 25-hydroxyvitamin D3 [Mass/Vol] 37.4 ng/mL Normal 30.0-100.0 [facility] Comment on above: Performed By: #### 5 [id number] #### [facility] [address] [place] [address] eGFRon 08-07-2024 eGFR 112 mL/min/1.73 m2 Normal >=59 [facility] Comment on above: Performed By: #### 1 [id number] #### [facility] [address] [place] [address] Gastroenterology Office/Clin ic Noteon 05-13-2024 Gastroenterology Office/Clinic Note Gastroenterology Office/Clinic Note Chief Complaint Colonoscopy results HPI Staff This is a 49 year old male who presents today for a follow-up to Colonoscopy. Last office visit w/ Dr Yanez History of Present Illness pt with anal pain requiring ER visit and a course of abx in January has been doing well since then 3-4 Bms a day- loose ?blood in stool 1-2 times a year on PPI and H2B with some GERD symptoms julian mid day Assessment/Plan 1. Crohn's disease of both small and large intestine (K50.80: Crohn's disease of both small and large intestine without complications) 2. Acid reflux (K21.9: Gastro-esophageal reflux disease without esophagitis) 3. Colon polyp (K63.5: Polyp of colon) 4. Loose stools (R19.5: Other fecal abnormalities) Obtain CRP and stool calprotectin Obtain CBC and CMP and vitamin D levels Schedule colonoscopy to stage Crohn's disease Schedule CT enterography to stage Crohn's disease Continue mesalamine for now but will likely need to be on a biologic agent given recent perianal abscess/inflammation CTE 03/13/24 IMPRESSION: NO ACUTE ABDOMINOPELVIC PROCESS. Colonoscopy w/ Dr Yanez 03/13/24 Impression and Plan Colitis and ileitis consistent with hx of CD s/p biopsies internal hemorrhoids Recommendations: Repeat colonoscopy:: 1-2 years Diagnosis Comment (Verified) Histological findings are consistent with inflammatory bowel disease. The patient's history of Crohn disease is noted. Recommend clinical, endoscopic and pathologic correlation. Final Diagnosis (Verified) A: TERMINAL ILEUM, BIOPSY: - Small bowel mucosa with increased lymphoplasmacytic infiltrate in lamina propria and focal mucosal erosion. - No evidence of granulomas, dysplasia or malignancy identified. B: COLON, RIGHT, BIOPSY: - Benign colonic mucosa with lymphoid aggregates and increased lymphoplasmacytic infiltrate in lamina propria. - No evidence of granulomas, dysplasia or malignancy identified. C: COLON, LEFT, BIOPSY: - Moderate chronic active colitis. - No evidence of granulomas, dysplasia or malignancy identified. - See Comment. D: COLON, TRANSVERSE, BIOPSY: - Benign colonic mucosa with lymphoid aggregate, increased lymphoplasmacytic infiltrate in lamina propria and focal architectural disarray. - No evidence of granulomas, dysplasia or malignancy identified. - See comment E: RECTUM, BIOPSY: - Benign colonic mucosa with increased lymphoplasmacytic infiltrate in lamina propria and focal architectural disarray. - No evidence of granulomas, dysplasia or malignancy identified - See comment. History of Present Illness I have reviewed HPI staff note, most recent labs and imaging, more than 30 minutes spent reviewing the chart, during encounter, placing orders and counseling the patient. pt with some diarrhea hard stool 2-3 times a week pt used to vomit his breakfast before Pentasa was started pt takes 2-3 Pentasa a day Review of Systems PHQ Score Initial Depression Screen Score: 0 SCORE All systems reviewed, negative except as mentioned above Physical Exam Vitals & Measurements HR: 89(Peripheral) BP: 125/84 HT: 72 in HT: 182 cm WT: 77.7 kg WT: 170.94 lb BMI: 23.46 General: alert, no acute distress HEENT: atraumatic normocephalic Cardiovascular: regular rate and rhythm, normal peripheral perfusion Respiratory: Lungs CTA, respirations non labored Extremities: no deformity, no trauma Abdomen: Benign, soft, tender nondistended Assessment/Plan 1. Crohn's disease of both small and large intestine (K50.80: Crohn's disease of both small and large intestine without complications) 2. Acid reflux (K21.9: Gastro-esophageal reflux disease without esophagitis) 3. Colon polyp (K63.5: Polyp of colon) 4. Loose stools (R19.5: Other fecal abnormalities) Advised to take Pentasa 4 g all at once Check CBC, CMP, iron studies, vitamin D levels, CRP, stool calprotectin, hep B panel, QuantiFERON, and TPMT Follow-up after 4 to 5 months to determine about repeating colonoscopy based on the above results Follow-up No qualifying data available Problem List/Past Medical History Ongoing Acid reflux Anal pain Colon polyp Crohn's disease of both small and large intestine Essential hypertension Gastroesophageal reflux disease Indigestion Loose stools Nausea and vomiting Historical No qualifying data Procedure/Surgical History Colonoscopy (03/23/2024), Colonoscopy (03/28/2021), Colonoscopy, flexible; with removal of tumor(s), polyp(s), or other lesion(s) by snare technique (01/17/2021), Esophagogastroduodenoscopy and biopsy (01/17/2021), Knee, Oral, Tonsillectomy and adenoidectomy. Medications famotidine 40 mg Tab mesalamine 500 mg Cap-ER, 1000 mg= 2 cap(s), Oral, QID, 1 refills omeprazole 40 mg Cap-DR, 40 mg= 1 cap(s), Oral, Daily omeprazole 40 mg Cap-DR, 40 mg= 1 cap(s), Oral, Daily tamsulosin 0.4 mg Cap, 0.4 mg= 1 cap(s), Oral, Daily Allergies No Known A (more content not included)... Normal [facility] Comment on above: Result Comment: Elec tronically Signed By: Renata ARRIETA, Juma Mcadams\.br\Date and Time Signed: 05/13/24 09:18 EDT Ambulatory Visit Summaryon 0 04-10-2024 Ambulatory Visit Summary Ambulatory Visit Summary GRACIELA KANG :1975 Visit Date:01/18/2021 Ambulatory Visit Instructions Your Diagnosis Acid reflux Your Care Team Primary Care Physician - Maycol ARRIETA, Jamal Marcelino This Is Your Medications List famotidine (famotidine 40 mg Tab) mesalamine (mesalamine 500 mg Cap-ER) omeprazole (omeprazole 40 mg Cap-DR) omeprazole (omeprazole 40 mg Cap-DR) tamsulosin (tamsulosin 0.4 mg Cap) Procedures Performed Colonoscopy (03/23/2024), Colonoscopy (03/28/2021), Colonoscopy, flexible; with removal of tumor(s), polyp(s), or other lesion(s) by snare technique (01/17/2021), Esophagogastroduodenoscopy and biopsy (01/17/2021), Knee, Oral, Tonsillectomy and adenoidectomy. What to do next You Need to Complete the Following Acute Hepatitis A B C Panel, Blood, Routine collect, 04/10/24, Order for future visit, Lab Collect, Crohn's disease of both small and large intestine, Print Label By Order Location C-Reactive Protein, Blood, Routine collect, 02/28/24, Order for future visit, Lab Collect, Crohn's disease of both small and large intestine Acid reflux Colon polyp Loose stools, Print Label By Order Location C-Reactive Protein, Blood, Routine collect, 04/10/24, Order for future visit, Lab Collect, Crohn's disease of both small and large intestine, Print Label By Order Location Calprotectin, Fecal, Stool, Routine collect, 02/28/24, Order for future visit, Nurse collect, Crohn's disease of both small and large intestine Acid reflux Colon polyp Loose stools, Print Label By Order Location Calprotectin, Fecal, Stool, Routine collect, 04/10/24, Order for future visit, Nurse collect, Crohn's disease of both small and large intestine, Print Label By Order Location CBC w/ Auto Diff, Blood, Routine collect, 02/28/24, Order for future visit, Lab Collect, Crohn's disease of both small and large intestine Acid reflux Colon polyp Loose stools, Print Label By Order Location CBC w/ Auto Diff, Blood, Routine collect, 04/10/24, Order for future visit, Lab Collect, Crohn's disease of both small and large intestine, Print Label By Order Location Comprehensive Metabolic Panel, Blood, Routine collect, 02/28/24, Order for future visit, Lab Collect, Crohn's disease of both small and large intestine Acid reflux Colon polyp Loose stools, Print Label By Order Location Comprehensive Metabolic Panel, Blood, Routine collect, 04/10/24, Order for future visit, Lab Collect, Crohn's disease of both small and large intestine, Print Label By Order Location Ferritin, Blood, Routine collect, 04/10/24, Order for future visit, Lab Collect, Crohn's disease of both small and large intestine, Print Label By Order Location Folate Level, Blood, Routine collect, 04/10/24, Order for future visit, Lab Collect, Crohn's disease of both small and large intestine, Print Label By Order Location HCV RT-PCR, Quant (Non-Graph), Blood, Routine collect, 04/10/24, Order for future visit, Lab Collect, Crohn's disease of both small and large intestine, Print Label By Order Location Hepatitis B Surface Antibody, Blood, Routine collect, 04/10/24, Order for future visit, Lab Collect, Crohn's disease of both small and large intestine, Print Label By Order Location Hepatitis B Surface Antigen, Blood, Routine collect, 04/10/24, Order for future visit, Lab Collect, Crohn's disease of both small and large intestine, Print Label By Order Location Iron Level, Blood, Routine collect, 04/10/24, Order for future visit, Lab Collect, Crohn's disease of both small and large intestine, Print Label By Order Location Lab Miscellaneous-LC, Not Specified, Routine collect, TPMT genotyping, 04/10/24, Order for future visit, Lab Collect, Crohn's disease of both small and large intestine, Print Label By Order Location, [id number] Lipid Panel, Blood, Routine collect, 04/10/24, Order for future visit, Lab Collect, Crohn's disease of both small and large intestine, Print Label By Order Location Quantiferon-TB Plus (Client Incubated), Blood, Routine collect, 04/02/24, Order for future visit, Lab Collect, Crohn's disease, Print Label By Order Location TIBC Calculated, Blood, Routine collect, 04/10/24, Order for future visit, Lab Collect, Crohn's disease of both small and large intestine, Print Label By Order Location Vitamin B12 Level, Blood, Routine collect, 04/10/24, Order for future visit, Lab Collect, Crohn's disease of both small and large intestine, Print Label By Order Location Vitamin D 25 Hydroxy, Blood, Routine collect, 02/28/24, Order for future visit, Lab Collect, Crohn's disease of both small and large intestine Acid reflux Colon polyp Loose stools, Print Label By Order Location Vitamin D 25 Hydroxy, Blood, Routine collect, 04/10/24, Order for future visit, Lab Collect, Crohn's disease of both small and large intestine, Print Label By Order Location Medications What How Much When Instructions New mesalamine (mesalamine 500 mg Cap-ER) 2 Cap (more content not included)... [facility] Provider Letteron 04-10-2024 Provider Letter Provider Letter April 10, 2024 [place] [address] : 1975 To Whom It May Concern, Please excuse above student from work. Date of Absence: From: _ To: _ Appointment Time In: _ Time Left Office: _ Restrictions: _ Comments: _ Sincerely, [facility] Surgical Pathology Reporton 03-25-2024 Surgical Pathology Report [facility] [address] [place] [address]- Surgical Pathology Report Collected Date/Time: 03/23/2024 09:18 EDT Pathologist: Junior Dennison MD Received Date/Time: 03/23/2024 10:18 EDT Renata ARRIETA, Juma Yanez MD, Juma Carr Surgical Pathology Report - 03/25/2024 12:05 EDT - Auth (Verified) Final Diagnosis A: TERMINAL ILEUM, BIOPSY: - Small bowel mucosa with increased lymphoplasmacytic infiltrate in lamina propria and focal mucosal erosion. - No evidence of granulomas, dysplasia or malignancy identified. B: COLON, RIGHT, BIOPSY: - Benign colonic mucosa with lymphoid aggregates and increased lymphoplasmacytic infiltrate in lamina propria. - No evidence of granulomas, dysplasia or malignancy identified. C: COLON, LEFT, BIOPSY: - Moderate chronic active colitis. - No evidence of granulomas, dysplasia or malignancy identified. - See Comment. D: COLON, TRANSVERSE, BIOPSY: - Benign colonic mucosa with lymphoid aggregate, increased lymphoplasmacytic infiltrate in lamina propria and focal architectural disarray. - No evidence of granulomas, dysplasia or malignancy identified. - See comment E: RECTUM, BIOPSY: - Benign colonic mucosa with increased lymphoplasmacytic infiltrate in lamina propria and focal architectural disarray. - No evidence of granulomas, dysplasia or malignancy identified - See comment. (Electronic Signature) Yan. Jesi MD 03/25/2024 12:05 Diagnosis Comment Histological findings are consistent with inflammatory bowel disease. The patient's history of Crohn disease is noted. Recommend clinical, endoscopic and pathologic correlation. Clinical Information Pre-Op Diagnosis: Crohn's disease Procedure: Colonoscopy Post-Op Diagnosis: 1. Colitis and ileitis consistent with history of CD s/p biopsies 2. Internal hemorrhoids Specimen(s) Received A.Terminal ileum biopsy B.Right colon biopsy C.Left colon biopsy D.Transverse colon biopsy E.Rectal biopsy Surgical Pathology Report Collected Date/Time: 03/23/2024 09:18 EDT Pathologist: Junior Dennison MD Received Date/Time: 03/23/2024 10:18 EDT Juma Yanez MD, MD, Mohamad A. Gross Description A: Received in formalin labeled with patient name, number, and terminal ileum biopsy are four fragments of jiang/pink tissue ranging from 0.1 to 0.2 cm in greatest dimension. Specimen is entirely submitted in one cassette. B: Received in formalin labeled with patient name, number, and right colon biopsy are multiple fragments of jiang/pink tissue ranging from 0.1 to 0.5 cm in greatest dimension. Specimen is entirely submitted in one cassette. C: Received in formalin labeled with patient name, number, and left colon biopsy are multiple fragments of jiang/pink tissue ranging from 0.1 to 0.3 cm in greatest dimension. Specimen is entirely submitted in one cassette. D: Received in formalin labeled with patient name, number, and transverse colon biopsy are multiple fragments of jiang/pink tissue ranging from 0.1 to 0.3 cm in greatest dimension. Specimen is entirely submitted in one cassette. E: Received in formalin labeled with patient name, number, and rectal biopsy are multiple fragments of jiang/pink tissue ranging from 0.1 to 0.5 cm in greatest dimension. Specimen is entirely submitted in one cassette. (DC) DC:[facility] Microscopic Description A-E: Microscopic examination performed unless gross only specified. [facility] Comment on above: Performed By: #### [id number] #### [facility] [address] [place] [address] Main OR Intraoperative Recor don 03-24-2024 Main OR Intraoperative Record Main OR Intraoperative Record IntraOp Document Type FT Summary Primary Physician: Juma Yanez MD Finalized Date/Time: 03/24/24 11:55:57 Pt. Name: GRACIELA KANG Alissa /Sex: 1975 Male Med Rec #: [id number] Physician: Juma Yanez MD Financial #: [id number] Pt. Type: O Room/Bed: / Admit/Disch: 03/23/24 07:57:35 - 03/23/24 23:59:59 Institution: Case Times FT Entry 1 Patient Times In Room 03/23/24 09:09:00 Out Room 03/23/24 09:32:00 Procedure Times Start 03/23/24 09:14:00 Stop 03/23/24 09:30:00 Anesthesia Times Start 03/23/24 09:09:00 Stop 03/23/24 09:32:00 Time at [facility] 03/23/24 09:16:00 Last Modified By: Carlos NORWOOD, Dinh Gupta 03/23/24 09:32:18 General Comments: 03/24/24 Chart opened to review and send charges [facility]FA Case Attendance FT Entry 1 Entry 2 Entry 3 Case Attendee Kerline PAPPAS, AUTOMOTIVE FINANCE MANAGER, [place] Carlos NORWOOD, Oksana Santana Role Performed AUTOMOTIVE FINANCE MANAGER [employer] - Primary Staff - Other Time In 03/23/24 09:09:00 03/23/24 09:09:00 03/23/24 09:19:00 Time Out 03/23/24 09:32:00 03/23/24 09:32:00 03/23/24 09:32:00 Procedure COLONOSCOPY(.) COLONOSCOPY(.) COLONOSCOPY(.) Comments Dr. Conn supervising case Last Modified By: Carlos NORWOOD, Dinh Gonzalez RN, Dinh Gonzalez RN, Dinh Gupta 03/23/24 09:32:19 03/23/24 09:32:19 03/23/24 09:32:19 Entry 4 Entry 5 Case Attendee Jonny Stevenson MD, Juma Mcadams Role Performed Scrub - Primary Surgeon - Primary Time In 03/23/24 09:09:00 03/23/24 09:09:00 Time Out 03/23/24 09:32:00 03/23/24 09:32:00 Procedure COLONOSCOPY(.) COLONOSCOPY(.) Comments Last Modified By: Dinh Gonzalez RN, RN, Morgan E 03/23/24 09:32:19 03/23/24 09:32:19 Perioperative Protocols FT Pre-Care Text: Implements protective measures prior to operative or invasive procedure, confirms identity before the operative or invasive procedure, verifies operative procedure, surgical site, and laterality Entry 1 Procedure(s) COLONOSCOPY(.) Patient Identity Birthday, ID Band Verified (select at Check, Patient least 2): Participation Consents / H and P Anesthesia Consent, Operative Site N/A Verified H&P, Surgery/Procedure Marking Verified Consent Surgical Site No Laterality Verified n/a Verified Procedure Verified Yes Correct Patient Yes Position Verified Availability Equipment, Medication Prep Dry n/a Verified (If Applicable) PreOp Antibiotic No Time Out Dinh Gonzalez RN, Given Participants Renata ARRIETA, Kerline Alexis DNP, AUTOMOTIVE FINANCE MANAGER, Graham Last Micala E Time Out Complete 03/23/24 09:11:00 Outcomes Met? Yes Last Modified By: Dinh Gonzalez RN 03/23/24 09:13:51 Post-Care Text: The patient is free from signs and symptoms of injury caused by extraneous objects Allergy Information FT Pre-Care Text: Verifies allergies Entry 1 Allergies Reviewed? Yes Allergies Reviewed Self/Patient With Outcomes Met? Yes Last Modified By: Dinh Gonzalez RN 03/23/24 09:12:47 Post-Care Text: The patient received appropriate medication(s) safely administered during the perioperative period Surgical Procedures FT Entry 1 Procedure Description Procedure COLONOSCOPY Modifiers . Surgeon Description Colonoscopy with terminal ileum biopsy, right colon biopsy, left colon biopsy, transverse colon biopsy, and rectal biopsy Primary Procedure Yes Primary Surgeon Renata ARRIETA, Juma Mcadams Start 03/23/24 09:14:00 Stop 03/23/24 09:30:00 Anesthesia Type General Surgical Service Gastroenterology Wound Class 2 - Clean-Contaminated Last Modified By: Dinh Gonzalez RN 03/23/24 09:30:31 General Case Data FT Pre-Care Text: Classifies surgical wound, implements aseptic technique, initiates traffic control Entry 1 Case Information OR ENDO 1 FT Case Level Level 2 Wound Class 2 - Clean-Contaminated Specialty Gastroenterology ASA Class 2 Preop Diagnosis Crohns disease Postop Same As Preop No Postop Diagnosis Small ulcers and Outcomes Met? Yes inflammation throughout the colon, Internal hemorrhoids Last Modified By: Dinh Gonzalez RN 03/23/24 09:43:01 Post-Care Text: The patient is free from signs and symptoms of infection Skin Assessment (Pre Procedure) FT Pre-Care Text: Implements protective measures to prevent skin/ tissue injury due to thermal or mechanical sources Evaluates for signs and symptoms of physical injury to skin and tissue Entry 1 Skin Integrity Dry, Warm Skin Abnormality No Outcomes Met? Yes Last Modified By: Dinh Gonzalez RN 03/23/24 09:14:17 Post-Care Text: The patient is free from signs and symptoms of injury caused by extraneous objects Patient Positioning FT Pre-Care Text: Identifies physical alterations that require additional precautions for procedure-specific positioning, verifies presence of prosthetics or corrective devices, positions the patient, evaluates the patient for signs and symptoms of injury as a res (more content not included)... [facility] Discharge Instructionson Discharge Instructions Discharge Instructions GRACIELA KANG :1975 Visit Date:03/23/2024 Inpatient Discharge Instructions Your Care Team Admitting Physician - Juma Yanez MD. Referring Physician - Juma Yanez MD. Reason for Your Visit SMALL & LARGE INTESTINES CROHN'S DISEASE, ACID REFLEX, COLON POLYP, LOOSE STOOLS Your Diagnosis Crohn's disease Tests Performed Pathology Tissue Exam -- Results Pending -- Please visit your patient portal for your results or contact your primary care physician. This Is Your Medications List famotidine (famotidine 40 mg Tab) mesalamine (mesalamine 500 mg Cap-ER) omeprazole (omeprazole 40 mg Cap-DR) omeprazole (omeprazole 40 mg Cap-DR) tamsulosin (tamsulosin 0.4 mg Cap) Procedure History Colonoscopy (03/28/2021), Colonoscopy, flexible; with removal of tumor(s), polyp(s), or other lesion(s) by snare technique (01/17/2021), Esophagogastroduodenoscopy and biopsy (01/17/2021), Knee, Oral, Tonsillectomy and adenoidectomy. Discharge Vitals Temperature (Temporal Artery) 36.7 ?C Heart Rate (Monitored) 90 Respiratory Rate 10 Blood Pressure 98/62 Height 182 cm Weight 79.2 kg BMI 23.91 What to do next Instructions From Your Doctor No qualifying data available. New Follow Up Appointments after Discharge Follow Up with Juma Yanez When: Comments: Call for any problems. Where: [address], [address] [place] [address]- [phone] Business (1) Medications What How Much When Instructions Next Dose Unchanged famotidine (famotidine 40 mg Tab) Unchanged mesalamine (mesalamine 500 mg Cap-ER) 2 Capsules By Mouth 4 times a day Unchanged omeprazole (omeprazole 40 mg Cap-DR) 1 Capsules By Mouth Every day Unchanged omeprazole (omeprazole 40 mg Cap-DR) 1 Capsules By Mouth Every day Unchanged tamsulosin (tamsulosin 0.4 mg Cap) 1 Capsules By Mouth Every day Enlarged prostate Test Results No qualifying data available. Allergies No Known Allergies Problems Ongoing - Any problem that you are currently receiving treatment for. Acid reflux Anal pain Colon polyp Crohn's disease of both small and large intestine Essential hypertension Gastroesophageal reflux disease Indigestion Loose stools Nausea and vomiting Education Materials Colonoscopy Care After Surgery Please read the instructions outlined below and refer to this sheet in the next few weeks. These discharge instructions provide you with general information on caring for yourself after you leave the hospital. Your doctor may also give you specific instructions. While your treatment has been planned according to the most current medical practices available, unavoidable complications occasionally occur. If you have any problems or questions after discharge, please call your doctor. ACTIVITY You may resume your regular activity, but move at a slower pace for the next 24 hours. Take frequent rest periods for the next 24 hours. Walking will help get rid of the air and reduce the bloated feeling in your abdomen (belly). No driving for 24 hours (because of the anesthesia (medicine) used during the test). You may shower. Do not sign any important legal documents or operate any machinery for 24 hours (because of the anesthesia used during the test). NUTRITION Drink plenty of fluids. You may resume your normal diet as instructed by your doctor. Begin with a light meal and progress to your normal diet. Heavy or fried foods are harder to digest and may make you feel nauseated (sick to your stomach). Avoid alcoholic beverages for 24 hours or as instructed. MEDICATIONS You may resume your normal medications unless your doctor tells you otherwise. WHAT YOU CAN EXPECT TODAY Some feelings of bloating in the abdomen. Passage of more gas than usual. Spotting of blood in your stool or on the toilet paper. FOLLOW-UP Your doctor will discuss the results of your test with you. SEEK IMMEDIATE MEDICAL ATTENTION IF: There is more than a spotting of blood in your stool. There is abdominal distention (your abdomen is swollen). There is vomiting. You have a temperature over 101.5 F. There is abdominal pain or discomfort that is severe or gets worse throughout the day. Common Emergency Awareness Tips IS IT A STROKE? Act FAST and Check for these signs: FACE Does the face look uneven? ARM Does one arm drift down? SPEECH Does their speech sound strange? TIME Call at any sign of stroke Heart Attack Signs Chest discomfort: Most heart attacks involve discomfort in the center of the chest and lasts more than a few minutes, or goes away and comes back. It can feel like uncomfortable pressure, squeezing, fullness or pain. Discomfort in upper body: Symptoms can include pain or discomfort in one or both arms, back, neck, jaw or stomach. Shortness of breath: With or without discomfort. Other signs: B (more content not included)... [facility] Comment on above: Result Comment: Elec tronically Signed By: Efren NORWOOD, Zoe\.br\Date and Time Signed: 03/23/24 09:44 EDT Main OR PACU I Recordon 02-24 Main OR PACU I Record Main OR PACU I Record PACU Phase I Document Type FT Summary Primary Physician: Juma Yanez MD Finalized Date/Time: 03/23/24 10:19:43 Pt. Name: GRACIELA KANG D.O.B./Sex: 1975 Male Med Rec #: [id number] Physician: Juma Yanez MD Financial #: [id number] Pt. Type: O Room/Bed: / Admit/Disch: 03/23/24 07:57:35 - Institution: Case Times PACU I FT Pre-Care Text: Identifies barriers to communication and implements measures to provide psychological support Develops individualized plan of care, and ensures continuity of care Maintains patient's dignity and privacy, and maintains patient confidentiality Identifies and reports philosophical, cultural, and spiritual beliefs and values Identifies individual values and wishes concerning care Implements aseptic technique, and administers prescribed antibiotic therapy and immunizing agents as ordered Evaluates postoperative tissue perfusion Implements thermoregulation measures, and monitors body temperature Evaluates postoperative respiratory status Evaluates postoperative cardiac status Evaluates postoperative neurological status Assesses pain control, collaborated in initiating patient-controlled analgesia and implements alternative methods of pain control Verifies allergies, administers prescribed medications and solutions, evaluates response to medications Entry 1 In PACU I 03/23/24 09:33:00 Discharge from PACU 03/23/24 10:03:00 I Outcomes Met? Yes Last Modified By: Zoe Schwartz RN 03/23/24 10:19:25 Post-Care Text: The patient demonstrates knowledge of the expected response to the operative or invasive procedure The patient's care is consistent with the individualized perioperative plan of care The patient's right to privacy is maintained The patient's value system, lifestyle, ethnicity, and culture are considered, respected, and incorporated into the perioperative plan of care The patient participates in decisions affecting his or her perioperative plan of care The patient is free from signs and symptoms of infection The patient has wound/tissue perfusion consistent with or improved from baseline levels established preoperatively The patient is at or returning to normothermia at the conclusion of the immediate postoperative period The patient's respiratory function is consistent with or improved from baseline levels established preoperatively The patient's cardiovascular status is consistent with or improved from baseline levels established preoperatively The patient's cardiovascular status is consistent with or improved from baseline levels established preoperatively The patient demonstrates and/or reports adequate pain control throughout the perioperative period The patient received appropriate medication(s), safely administered during the perioperative period Acuity Level PACU I FT Entry 1 Start Time 03/23/24 09:33:00 Stop Time 03/23/24 10:03:00 Acuity Level Acuity Level I Last Modified By: Zoe Schwartz RN 03/23/24 10:19:38 Finalized By: Zoe Schwartz RN Document Signatures Signed By: Zoe Schwartz RN 03/23/24 10:19 [facility] Main OR Preoperative Recordo n 03-23-2024 Main OR Preoperative Record Main OR Preoperative Record Holding Area Document Type FT Summary Primary Physician: Juma Yanez MD Finalized Date/Time: 03/23/24 08:09:43 Pt. Name: GRACIELA KANG /Sex: 1975 Male Med Rec #: [id number] Physician: Juma Yanez MD Financial #: [id number] Pt. Type: O Room/Bed: / Admit/Disch: 03/23/24 07:57:35 - Institution: Case Times Holding FT Pre-Care Text: Verifies consent for planned procedure, identifies individual values and wishes concerning care, includes family members in perioperative teaching Secures patient's records' belongings, and valuables, maintains patient's dignity and privacy, and maintains patient confidentiality Entry 1 In Holding 03/23/24 08:09:00 Outcomes Met? Yes Last Modified By: Dinh Gonzalez RN 03/23/24 08:09:42 Post-Care Text: The patient participates in decisions affecting his or her perioperative plan of care The patient's right to privacy is maintained Surgery Checklist FT Entry 1 Patient Birthday, ID Band Procedure History and Physical, Identification: Check, Patient Verification: Surgical Consent, With Participation Patient NPO after Midnight: Yes Results Reviewed clear liquid bowel Comments: results Personal Items: Glasses Personal Items left knee replacement, Comment: glasses, clothing, shoes Limitations: none Complaints of Pain: No Pain Comment: denies Operative Site n/a Marking: Marked By: n/a Location: n/a Availability Equipment Verified: Does Patient Smoke Yes If Yes to Smoking. 1/2 pack per day Cigars or Cigarettes. How much per day? Patient states Yes Comment - Adult - Maddie postop adult Supervision supervision available Case Cancelled in No Holding Area see comments below for reason Last Modified By: Dinh Gonzalez RN 03/23/24 08:09:38 General Comments: pt finished bowel prep prior to midnight. pt states nothing to eat or drink since MSRN Finalized By: Dinh Gonzalez RN Document Signatures Signed By: Dinh Gonzalez RN 03/23/24 08:09 [facility] [address] Abdomen/Pelvis w/contrast (enterography)on 03-17-2024 CT Abdomen/Pelvis w/contrast (enterography) Exam Date/Time: 03/13/2024 08:43 EDT Reason for Exam: K50.80;Crohn's Disease Report IMPRESSION: NO ACUTE ABDOMINOPELVIC PROCESS. EXAM: CT Abdomen/Pelvis w/contrast (enterography) History: Crohn's disease Technique: Multiple contiguous axial images were obtained of the abdomen and pelvis from the level of the lung bases through the ischial tuberosities with IV contrast. Oral volumen was administered. Multiplanar reformats were obtained. Delayed images were obtained. Unless otherwise stated, incidental findings identified in this report do not require routine follow-up imaging. Comparison: CT abdomen pelvis 02/28/2021 Findings: Lung bases are clear. Hypoattenuation of the liver. The gallbladder, stomach, spleen, pancreas, and adrenal glands are within normal limits. The kidneys enhance uniformly No urinary tract calculi or hydronephrosis. Urinary bladder is well distended. The prostate does not appear enlarged. Small fat-containing left inguinal hernia. Abdominal aorta is nonaneurysmal. No retroperitoneal or abdominal/pelvic lymphadenopathy. No small bowel obstruction. Normal small bowel wall enhancement. No areas of small bowel wall thickening or definitive stricture identified. No inflammation adjacent to small bowel loops. No engorged vasa recta. No overt colonic mass or pericolonic inflammation. Appendix is within normal limits. No free fluid or free air. No acute osseous abnormality. Mild degenerative changes of the spine. All CT scans at this facility use dose modulation, iterative reconstruction, and/or weight based dosing when appropriate to reduce radiation dose to as low as reasonably achievable. Report Ordering Provider: Juma Yanez FINAL REPORT Dictated: 03/17/2024 3:46 pm Renard Guzman DO Signed (Electronic Signature): 03/17/2024 3:46 pm Signed by: Renard Guzman DO Transcribed by: DESIRAE Technologist: COOPER Technical Comments GFR (mL/min/1/73m2) age Contrast: Isovue 300 Contrast amount in ml's: 100 Oral contrast amount in ml's: 1350 [facility] Ambulatory Visit Summaryon 0 02-28-2024 Ambulatory Visit Summary Ambulatory Visit Summary GRACIELA KANG :1975 Visit Date:02/28/2024 Ambulatory Visit Instructions Your Diagnosis Crohn's disease of both small and large intestine Acid reflux Colon polyp Loose stools Your Care Team Attending Physician - Renata ARRIETA, Juma Mcadams Primary Care Physician - Maycol ARRIETA, Jamal Marcelino This Is Your Medications List Contact prescribing physician if questions or concerns famotidine (famotidine 40 mg Tab) mesalamine (mesalamine 500 mg Cap-ER) omeprazole (omeprazole 40 mg Cap-DR) omeprazole (omeprazole 40 mg Cap-DR) tamsulosin (tamsulosin 0.4 mg Cap) Procedures Performed Colonoscopy (03/28/2021), Colonoscopy, flexible; with removal of tumor(s), polyp(s), or other lesion(s) by snare technique (01/17/2021), Esophagogastroduodenoscopy and biopsy (01/17/2021), Knee, Oral, Tonsillectomy and adenoidectomy. Discharge Vitals Blood Pressure 144/91 Height 72 in Height 182 cm Weight 174.24 lb Weight 79.2 kg BMI 23.91 What to do next Scheduled Follow-Up Appointments Saturday 8:00 AM EDT Where: [facility] You Need to Complete the Following C-Reactive Protein, Blood, Routine collect, 02/28/24, Order for future visit, Lab Collect, Crohn's disease of both small and large intestine Invalid Interpretation Code Colon polyp [facility] Gastroenterology Office/Clin ic Noteon 02-28-2024 Gastroenterology Office/Clinic Note Gastroenterology Office/Clinic Note Chief Complaint 1 episode February 02 anal pain and pressure. Patient went to ER. HPI Staff This is a 49 year old male who presents today for a 1 year follow up. Due for Colonoscopy 2023. Denies Blood Thinners Denies GLP-1 Agonists Last visit w/ Dr Smith Assessment/Plan 1. Crohn's disease of both small and large intestine (K50.80: Crohn's disease of both small and large intestine without complications) This was diagnosed in 2006 at an outside facility. His colonoscopy was done by Dr. Bowers in 2021 showed mild inflammation in the terminal ileum and sporadic area in the colon. He has been on Pentasa, but he ran out of treatment recently. His symptoms has been well controlled with Pentasa. I will refill his Pentasa. He has no evidence of extra GI manifestation of Crohn's disease 2. Acid reflux (K21.9: Gastro-esophageal reflux disease without esophagitis) He is on omeprazole 40 mg by mouth daily. He has no dysphagia. 3. Colon polyp (K63.5: Polyp of colon) He will repeat a colonoscopy next year. Colonoscopy w/ Dr Bowers 01/17/21 Impression and Plan Mild terminal ileitis, terminal ileum biopsies obtained using cold biopsy forceps Small external hemorrhoid skin tag Small internal hemorrhoids Right spastic anal sphincter Inflamed and ulcerated IC valve, biopsied Diminutive inflammatory appearing cecal polyp, 1 mm, removed with biopsy Multiple small scattered erosions and aphthous ulcers throughout the colon, right colon, transverse colon and left colon (including rectum) biopsies obtained Final Diagnosis (Verified) A: STOMACH, BIOPSY: ? GASTRIC MUCOSA WITH MILD CHRONIC GASTRITIS AND FOVEOLAR HYPERPLASIA. ? NO GRANULOMA OR DYSPLASIA. ? NO H. PYLORI MICROORGANISMS IDENTIFIED WITH IMMUNOSTAIN. B: RIGHT COLON, BIOPSY: ? COLONIC MUCOSA WITH LYMPHOID AGGREGATES. ? SMALL GRANULOMA IN LAMINA PROPRIA SUGGESTED. ? NO CRYPT ABSCESS OR DYSPLASIA SEEN. C: ILEOCECAL VALVE, BIOPSY: ? CHRONIC ACTIVE COLITIS. ? NO GRANULOMA OR DYSPLASIA IDENTIFIED. D: TERMINAL ILEUM, BIOPSY: ? TERMINAL ILEUM WITHIN NORMAL LIMITS. E: TRANSVERSE COLON, BIOPSY: ? CHRONIC ACTIVE COLITIS. ? NO DYSPLASIA IDENTIFIED. F: POLYP, CECUM, POLYPECTOMY: ? CHRONIC ACTIVE COLITIS. ? NO DYSPLASIA IDENTIFIED. G: LEFT COLON, BIOPSY: ? MILD CRYPTITIS WITH MILD GLANDULAR DISTORTION. ? NO GRANULOMA OR DYSPLASIA IDENTIFIED. EGD w/ Dr Smith 12/26/21 Endoscopic diagnosis: 1. Normal esophagus, Z-line was noted at 35 cm 2. Normal gastric mucosa, random gastric biopsies obtained for h pylori 3. Small hiatal hernia, 2 cm 4. Normal Duodenum Final Diagnosis (Verified) STOMACH, BIOPSY: ? GASTRIC MUCOSA WITH MILD CHRONIC INFLAMMATION IN LAMINA PROPRIA. ? PROTON PUMP INHIBITOR INDUCED CHANGES SUGGESTED. History of Present Illness I have reviewed HPI staff note, most recent labs and imaging, more than 30 minutes spent reviewing the chart, during encounter, placing orders and counseling the patient. pt with anal pain requiring ER visit and a course of abx in January has been doing well since then 3-4 Bms a day- loose ?blood in stool 1-2 times a year on PPI and H2B with some GERD symptoms julian mid day Review of Systems PHQ Score Initial Depression Screen Score: 0 SCORE All systems reviewed, negative except as mentioned above Physical Exam Vitals & Measurements BP: 144/91 HT: 72 in HT: 182 cm WT: 79.2 kg WT: 174.24 lb BMI: 23.91 General: alert, no acute distress HEENT: atraumatic normocephalic Cardiovascular: regular rate and rhythm, normal peripheral perfusion Respiratory: Lungs CTA, respirations non labored Extremities: no deformity, no trauma Abdomen: Benign, soft, nontender nondistended Assessment/Plan 1. Crohn's disease of both small and large intestine (K50.80: Crohn's disease of both small and large intestine without complications) Ordered: C-Reactive Protein Calprotectin, Fecal CBC w/ Auto Diff Colonoscopy (Hospital Procedure) Comprehensive Metabolic Panel CT Abdomen/Pelvis w/contrast (enterography) Vitamin D 25 Hydroxy 2. Acid reflux (K21.9: Gastro-esophageal reflux disease without esophagitis) Ordered: C-Reactive Protein Calprotectin, Fecal CBC w/ Auto Diff Colonoscopy (Hospital Procedure) Comprehensive Metabolic Panel CT Abdomen/Pelvis w/contrast (enterography) Vitamin D 25 Hydroxy 3. Colon polyp (K63.5: Polyp of colon) Ordered: C-Reactive Protein Calprotectin, Fecal CBC w/ Auto Diff Colonoscopy (Hospital Procedure) Comprehensive Metabolic Panel CT Abdomen/Pelvis w/contrast (enterography) Vitamin D 25 Hydroxy 4. Loose stools (R19.5: Other fecal abnormalities) Ordered: C-Reactive Protein Calprotectin, Fecal CBC w/ Auto Diff Colonoscopy (Hospital Procedure) Comprehensive Metabolic Panel CT Abdomen/Pelvis w/contrast (enterography) Vitamin D 25 Hydroxy Obtain CRP and stool calprotectin Obtain CBC and CMP and vitam (more content not included)... Normal [facility] Comment on above: Result Comment: Elec tronically Signed By: Renata ARRIETA, Juma Mcadams\.br\Date and Time Signed: 02/28/24 08:33 EDT Provider Letteron 02-04-2024 Provider Letter (Inserted Image. Rut ble to display) February 04, 2024 GRACIELA KANG [address] [place] [id number] : 1975 Dear Graciela, We have been trying to reach you with no success. It is important that you return our call regarding your previous appointment scheduled for March [address] Dunaway. Please call the office upon receiving this letter to reschedule this appointment. Also, at the time of your call, please provide us with your current information. Thank you for your prompt attention to this matter. Sincerely, [facility] [phone] Normal [facility] Vital Signs Date Time Vital Sign Value Performing Clinician Facility 09-16-2024 09:03-0500 Body height 185.4 cm Yohana Sewell MD Work Phone: [facility] 09-16-2024 09:03-0500 Body mass index (BMI) [Ratio] 22.82 kg/m2 Yohana Sewell MD Work Phone: [facility] 09-16-2024 09:03-0500 Body weight 78.47 kg Yohana Sewell MD Work Phone: [facility] 08-14-2024 08:18-0500 Diastolic blood pressure 103 mm[Hg] Juma Yanez [facility] 08-14-2024 08:18-0500 Mean blood pressure 122 mm[Hg] Juma Yanez [facility] 08-14-2024 08:18-0500 Systolic blood pressure 160 mm[Hg] Juma Yanez [facility] 08-14-2024 08:14-0500 Blood Pressure Location Mohlloyd Yanez [facility] 08-14-2024 08:14-0500 Diastolic blood pressure 102 mm[Hg] Juma Yanez [facility] 08-14-2024 08:14-0500 Heart rate 85 /min Juma Yanez [facility] 08-14-2024 08:14-0500 Systolic blood pressure 158 mm[Hg] Juma Thompsonli [facility] 04-10-2024 08:18-0400 Diastolic blood pressure 84 mm[Hg] Mohamad Mouchli [facility] 04-10-2024 08:18-0400 Mean blood pressure 98 mm[Hg] Mohamad Mouchli [facility] 04-10-2024 08:18-0400 Systolic blood pressure 125 mm[Hg] Mohamad Mouchli [facility] 04-10-2024 08:00-0400 Blood Pressure Location Mohamad Mouchli [facility] 04-10-2024 08:00-0400 Diastolic blood pressure 90 mm[Hg] Mohamad Mouchli [facility] 04-10-2024 08:00-0400 Heart rate 89 /min Mohamad Mouchli [facility] 04-10-2024 08:00-0400 Systolic blood pressure 135 mm[Hg] Mohamad Mouchli [facility] 03-23-2024 09:55-0400 Blood Pressure Location Mohamad Mouchli [facility] 03-23-2024 09:55-0400 Diastolic blood pressure 80 mm[Hg] Mohamad Mouchli [facility] 03-23-2024 09:55-0400 Heart rate 90 /min Mohamad Mouchli [facility] 03-23-2024 09:55-0400 Mean blood pressure 93 mm[Hg] Mohamad Mouchli [facility] 03-23-2024 09:55-0400 Respiratory rate 17 /min Mohamad Mouchli [facility] 03-23-2024 09:55-0400 SaO2% (BldA) [Mass fraction] 99 % Mohamad Mouchli [facility] 03-23-2024 09:55-0400 Systolic blood pressure 118 mm[Hg] Mohamad Mouchli [facility] 03-23-2024 09:45-0400 Blood Pressure Location Mohamad Mouchli [facility] 03-23-2024 09:45-0400 Diastolic blood pressure 80 mm[Hg] Mohamad Mouchli [facility] 03-23-2024 09:45-0400 Heart rate 95 /min Mohamad Mouchli [facility] 03-23-2024 09:45-0400 Mean blood pressure 92 mm[Hg] Mohamad Mouchli [facility] 03-23-2024 09:45-0400 Respiratory rate 15 /min Mohamad Mouchli [facility] 03-23-2024 09:45-0400 SaO2% (BldA) [Mass fraction] 97 % Mohamad Mouchli [facility] 03-23-2024 09:45-0400 Systolic blood pressure 116 mm[Hg] Mohamad Mouchli [facility] 03-23-2024 09:40-0400 Blood Pressure Location Mohamad Mouchli [facility] 03-23-2024 09:40-0400 Diastolic blood pressure 63 mm[Hg] Mohamad Mouchli [facility] 03-23-2024 09:40-0400 Heart rate 89 /min Mohamad Mouchli [facility] 03-23-2024 09:40-0400 Mean blood pressure 75 mm[Hg] Mohamad Mouchli [facility] 03-23-2024 09:40-0400 Respiratory rate 19 /min Mohamad Mouchli [facility] 03-23-2024 09:40-0400 SaO2% (BldA) [Mass fraction] 95 % Mohamad Mouchli [facility] 03-23-2024 09:40-0400 Systolic blood pressure 98 mm[Hg] Mohamad Mouchli [facility] 03-23-2024 09:33-0400 Body temperature 98.06 [degF] Mohamad Mouchli [facility] 03-23-2024 09:30-0400 Respiratory rate 18 /min Mohamad Mouchli [facility] 03-23-2024 09:25-0400 Respiratory rate 18 /min Mohamad Mouchli [facility] 03-23-2024 09:20-0400 Respiratory rate 18 /min Mohamad Mouchli [facility] 03-23-2024 08:16-0400 Body temperature 98.78 [degF] Mohamad Mouchli [facility] 02-28-2024 08:07-0400 Diastolic blood pressure 91 mm[Hg] Mohamad Mouchli [facility] 02-28-2024 08:07-0400 Mean blood pressure 109 mm[Hg] Mohamad Mouchli [facility] 02-28-2024 08:07-0400 Systolic blood pressure 144 mm[Hg] Mohamad Mouchli [facility] 02-28-2024 08:03-0400 Blood Pressure Location Mohamad Mouchli [facility] 02-28-2024 08:03-0400 Diastolic blood pressure 95 mm[Hg] Mohamad Mouchli [facility] 02-28-2024 08:03-0400 Systolic blood pressure 148 mm[Hg] Mohamad Mouchli [facility] 02-21-2024 08:41-0400 Diastolic blood pressure 105 mm[Hg] Olivas Sarmini [facility] 02-21-2024 08:41-0400 Mean blood pressure 124 mm[Hg] Olivas Sarmini [facility] 02-21-2024 08:41-0400 Systolic blood pressure 163 mm[Hg] Olivas Sarmini [facility] 02-21-2024 08:37-0400 Blood Pressure Location Olivas Sarmini [facility] 02-21-2024 08:37-0400 Diastolic blood pressure 106 mm[Hg] Olivas Sarmini [facility] 02-21-2024 08:37-0400 Heart rate 56 /min Olivas Sarmini [facility] 02-21-2024 08:37-0400 Respiratory rate 16 /min Olivas Sarmini [facility] 02-21-2024 08:37-0400 Systolic blood pressure 164 mm[Hg] Deisy Dunaway [facility] 12-20-2022 13:33-0400 Blood Pressure Location Ortiz SALAM [facility] 12-20-2022 13:33-0400 Diastolic blood pressure 86 mm[Hg] Ortiz SALAM [facility] 12-20-2022 13:33-0400 Heart rate 78 /min Ortiz SALAM [facility] 12-20-2022 13:33-0400 Respiratory rate 16 /min Ortiz SALAM [facility] 12-20-2022 13:33-0400 Systolic blood pressure 122 mm[Hg] Ortiz SALAM [facility] Encounters Encounter Date Encounter Type Care Provider Facility Start: 11-06-2024 ambulatory Juma Calvin lity:Sil garsia Start: 09-17-2024 End: 09-17-2024 Office outpatient visit 15 minutes Anna Carr PHARMACY RESIDENT-[employer]IA [employer]ER Work Phone: [facility] Comment on above: Other atopic dermati tis Start: 09-17-2024 End: 09-17-2024 ambulatory ANNA A FELTER Not Available Start: 09-16-2024 End: 09-16-2024 Bamboo flowslaura Sewell MD Work Phone: [facility] Start: 09-16-2024 End: 09-16-2024 Isaac Sewell MD Work Phone: [facility] Start: 09-16-2024 End: 09-16-2024 Office outpatient new 30 minutes Yohana Sewell MD Work Phone: [facility] Comment on above: Other atopic dermati tis Start: 09-16-2024 End: 09-16-2024 ambulatory YOHANA HALLBASEK Not Available Start: 08-14-2024 End: 08-14-2024 ambulatory Juma Yanez Facility:[facility] Start: 08-14-2024 End: 08-14-2024 Patient encounter procedure Juma Yanez [facility] Start: 08-12-2024 End: 08-12-2024 Bamboo flowsheet Anna A Felter PHARMACY RESIDENT-[employer]IA [employer] T[employer]ER Work Phone: [facility] Start: 08-12-2024 End: 08-12-2024 Bamboo flowsheet Anna A Felter PHARMACY RESIDENT-[employer]IA [employer] T[employer]ER Work Phone: [facility] Start: 08-12-2024 End: 08-12-2024 Telephone encounter Anna A Felter PHARMACY RESIDENT[employer]ER Work Phone: [facility] Start: 08-12-2024 End: 08-12-2024 Office outpatient visit 25 minutes Anna A Felter PHARMACY RESIDENT[employer]ER Work Phone: [facility] Comment on above: Other atopic dermati tis Start: 08-12-2024 End: 08-12-2024 ambulatory ANNA A FELTER Not Available Start: 08-07-2024 End: 08-07-2024 ambulatory Juma Yanez Facility[facility] Start: 08-07-2024 End: 08-07-2024 Patient encounter procedure Juma Yanez [facility] Start: 04-21-2024 End: 04-21-2024 Refill Margaret Guevara MD Work Phone: [facility] Comment on above: Gastroesophageal ref lux disease, unspecified whether esophagitis present Start: 04-10-2024 End: 04-10-2024 ambulatory Juma Yanez Facility:[facility] Start: 04-10-2024 End: 04-10-2024 Patient encounter procedure Olenarachael QuirinoGerardo Yanez [facility] Start: 03-23-2024 End: 03-23-2024 ambulatory Chantellesafiarachael QuirinoGerardo Paulomanuel Facility:[facility] Start: 03-23-2024 End: 03-23-2024 Patient encounter procedure Olenarachael QuirinoGerardo Yanez [facility] Start: 03-13-2024 End: 03-13-2024 ambulatory Juma Yanez Facility:[facility] Start: 03-13-2024 End: 03-13-2024 Patient encounter procedure Olenarachael QuirinoGerardo Paulomanuel [facility] Start: 03-02-2024 ambulatory Olivas Talal Sarmini Facility:[facility] Start: 02-28-2024 End: 02-28-2024 ambulatory [facility]lenad [facility]ardo [facility] Start: 02-28-2024 End: 02-28-2024 Patient encounter procedure Olenarachael QuirinoGerardo Paulomanuel [facility] Start: 02-21-2024 End: 02-21-2024 ambulatory MARYAN ACEVEDO Not Available Start: 02-21-2024 End: 02-21-2024 Patient encounter procedure Olivas Talal Sarmini [facility] Start: 01-27-2024 End: 01-27-2024 ambulatory RAQUEL Quirino DEUTSCH Not Available Start: 01-17-2024 End: 01-17-2024 ambulatory ANNA CARR Not Available Start: 12-20-2022 End: 12-20-2022 Patient encounter procedure Angel SMITH [facility] Start: 01-12-2022 End: 01-12-2022 Patient encounter procedure Amanda Houser [facility] Start: 12-26-2021 End: 12-26-2021 Lab Drop off Ortizminerva SMITH [facility] Start: 12-18-2021 End: 12-18-2021 Patient encounter procedure [facility] Start: 11-14-2020 End: 03-30-[address] NONE LISTED REQUEST Facility: Procedures Date Procedure Procedure Detail Performing Clinician Start: 03-23-2024 Colonoscopy Anna lópez PHARMACY RESIDENT-[employer]IA [employer] T[employer]ER Work Phone: Start: 03-23-2024 Colonoscopy Juma jackson Start: 03-28-2021 Colonoscopy Margaret arizmendi MD Work Phone: Start: 03-28-2021 Colonoscopy Angel Peguero Comment on above: biopsies, terminal i leitis inflammation with ulcers, transverse colon erosions, and descending erosions, polyp x1 Start: 01-17-2021 Colsc flx w/rmvl of tumor polyp lesion snare tq Ortizminerva SMITH Start: 01-17-2021 Endoscopy and biopsy of upper gastrointestinal tract Ortiz SALAM Knee region structur e (body structure) Ortiz SALAM Oral Ortiz SALAM Tonsillectomy and adenoidectomy Ortiz SALAM Plan of Treatment Date Care Activity Detail Author Start: 03-23-2034 Screening for malign ant neoplasm of colon [facility] Start: 03-28-2031 Screening for malign ant neoplasm of colon [facility] Start: 10-15-2024 End: 10-15-2024 Patient encounter procedure 10/15/2024 9:10 AM EST Office Visit [facility] [address] [place] [address] Anna Carr, PHARMACY RESIDENT[employer]IA [employer] TENDER [address] [place] [address] [facility] Start: 09-17-2024 End: 09-17-2024 Patient encounter procedure 09/17/2024 8:30 AM EST Office Visit [facility] [address] [place] [address] Anna Carr, PHARMACY RESIDENT[employer]IA [employer] T[employer]ER [address] [place] [address] [facility] Start: 09-16-2024 End: 09-16-2024 Patient encounter procedure [facility] Comment on above: Other atopic dermati tis Start: 09-03-2024 End: 09-03-2024 Patient encounter procedure 09/03/2024 8:40 AM EST Office Visit [facility] [address] [place] [address] Anna Carr, PHARMACY RESIDENT[employer]IA [employer] T[employer]ER [address] [place] [address] [facility] Start: 08-12-2024 End: 08-12-2024 Patient encounter procedure 08/12/2024 8:30 AM EST Office Visit [facility] [address] [place] [address] Anna Carr, PHARMACY RESIDENT[employer]IA [employer] TENDER [address] [place] [address] Arrived [facility] Comment on above: Arrived Start: 04-26-2024 Influenza vaccination Influenza Vacc ine (#1) [facility] Start: 1975 Screening for malign ant neoplasm of colon [facility] Aerobic culture Aerobic culture Microbiology Timed Other atopic dermatitis Release Upon Ordering for 1 Occurrences starting 08/12/2024 [facility] Work Phone: Comment on above: Release Upon Orderin g for 1 Occurrences starting 08/12/2024 Immunizations Immunization Date Immunization Notes Care Provider Fa cility 12-06-2020 SARS-CoV-2 (COVID-19 ) mRNA BNT-162b2 vax [employer] [facility] 11-14-2020 SARS-CoV-2 (COVID-19 ) mRNA BNT-162b2 vax Ortiz [employer] [facility] NEGATED: Highlighted row has not occurred!08-14-2024 influenza virus vaccine, unspecified formulation [employer] [facility] NEGATED: Highlighted row has not occurred!04-10-2024 influenza virus vaccine, unspecified formulation [employer] Mouchli [facility] NEGATED: Highlighted row has not occurred!10-30-2021 influenza virus vaccine, unspecified formulation Ortiz [employer] [facility] Payers Date Payer Category Payer [facility] [id number] 2022 Unknown BCBS BCBS xxxxxx [id number] 2022-Present [phone] [address] [place] [address] [id number] 2022 Unknown [id number] 1975 Unknown [id number] 2.16.840.1.394780.3.579. 2.727 1974 Unknown [id number] 2.16.840.1.490958.3.579. 2.727 1974 Unknown [id number] 2.16.840.1.174460.3.579. 2.727 1974 Unknown [id number] 2.16.840.1.345995.3.579. 2.727 1974 Unknown [id number] 2.16.840.1.542248.3.579. 2.727 1974 Unknown [id number] 2.16.840.1.255932.3.579. 2.727 1974 Unknown [id number] 2.16.840.1.726015.3.579. 2.1259 1974 Unknown [id number] 2.16.840.1.390935.3.579. 2.1259 1974 Unknown [id number] 2.16.840.1.767491.3.579. 2.1259 1974 Unknown [id number] 2.16.840.1.795275.3.579. 2.1259 1974 Unknown [id number] 2.16.840.1.166882.3.579. 2.1259 1974 Unknown [id number] 2.16.840.1.353246.3.579. 2.1259 1974 Unknown [id number] 2.16.840.1.164212.3.579. 2.727 1974 Unknown [id number] 2.16.840.1.251272.3.579. 2.727 1974 Unknown [id number] 2.16.840.1.167775.3.579. 2.727 1974 Unknown [id number] 2.16.840.1.919264.3.579. 2.727 1974 Unknown [id number] 2.16.840.1.805527.3.579. 2.727 1960 Self-pay Unknown [id number] 2.16.840.1.653442.3.579. 2.593 Social History Date Type Detail Facility Start: 10-30-2021 End: 08-14-2024 Tobacco smoking status Light tobacco smoker (finding) [facility] Tobacco smoking status Never [facility] Start: 02-21-2024 End: 09-17-2024 Sex Assigned At Male [facility] Start: 08-26-2009 Tobacco smoking stat [facility] Smokes tobacco daily [facility] Start: 08-26-2009 History of tobacco use Cigarette Smo ker [facility] Start: 06-14-2023 End: 09-17-2024 Cigarettes smoked current (pack per day) - Reported 0.5 [facility] Start: 06-14-2023 Tobacco use and exposure Smokeless tobacco non-user [facility] Start: 02-21-2024 End: 09-17-2024 Alcoholic beverage intake Current drinker of alcohol (finding) [facility] Start: 06-14-2023 Alcohol Comment 10 or more dri nks on a typical day/ 4 or more times a week. [facility] Start: 1975 Sex assigned at Not on file [facility] Functional Status Date Assessment Result Facility 08-14-2024 Functional Status N/A [facility] 04-10-2024 Functional Status N/A [facility] 03-23-2024 Functional Status N/A [facility] 02-28-2024 Functional Status N/A [facility] 02-21-2024 Functional Status N/A [facility] 12-20-2022 Functional Status N/A [facility] Clinical Notes 10-30-2021 to 09-17-2024 Anna Win EUGENE Carr - 09/17/2024 8:30 AM ESTTodd Candy Sewell MD - 09/16/2024 9:00 AM ESTTelephone Encounter - Anna Win EUGENE Carr - 08/12/2024 10:14 AM EST Note Date & Type Note Facility 09-17-2024 History of Presen t illness Narrative Follow up Diagnosis: Atopic Dermatitis Location: Feet Last visit: 3 weeks Symptoms: still peeling and breaking out Status: No change Treatments tried and failed: Betamethasone Dipro 0.05% cream, protopic ointment Current treatment: Was prescribed Prednisone 40 mg x 7 days then 20 mg x 7 day, benadryl and referral to [employer] (seen on 09/16/23) recommended doing patch testing and patient scheduled for that, also recommended parafin wax dips, Vikor culture done on 08/12/24 (Staph present). Vtama was denied, resubmitted everything and awaiting response. All pertinent medical history, medications, and allergies were reviewed. General Exam: alert, oriented to person, place, and time, normal affect, well appearing Unaccompanied A focused exam completed based on patient reported problems, see below: 1. Other atopic dermatitis Left Middle Plantar Surface, Right Middle Plantar Surface Scaly erythematous plaques +/- dyspigmentation, lichenification, excoriations. Mild improvement from last visit. Discussed that atopic dermatitis is a chronic condition that can be controlled but not cured. [place] card given to patient to call and get the Vtama for $35. Patient is starting Humira soon for Chron's so nemluvio would not be an option enouraged daily moisturizing and gentle cleansers to prevent flares. Notify office if flaring despite treatment. Sampes of Vtama given today. Patient to notify office if still having issues getting Vtama approved or paying out of pocket cost. Follow up in 3-4 weeks. Related Medications diphenhydrAMINE-zinc acetate (Benadryl Extra Strength) cream Apply topically 4 (four) times a day as needed for itching Next Visit: 3-4 weeks documented in this encounter [facility] 09-16-2024 History of Presen t illness Narrative Graciela Kang is a very pleasant 49 y.o. year old male who comes to the office today with the chief complaint of rash. He has been in the dermatology clinic for atopic dermatitis and try several creams which did not work so he was placed on Dupixent which caused his feet to flare swell and peel to the point he could not put on his shoes. He stopped the Dupixent and was then placed on different cream and then this was not helpful as well. He was then given oral corticosteroid which cleared all of his symptoms. He was having the rash around the arch of his foot and concern was raised about the possibility of allergic contact dermatitis. Currently he has the rash on his feet which have dry, red, scaly, itchy skin bilaterally. The rest of his skin is generally OK. He has worn the same shoes for the past 18 months. 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 He is around a lot of coolant there but does not have direct contact with the industrial liquids there. He has no pets at home. He has no asthma symptoms or any food allergy. He does not wear leather shoes - he wear tennis shoes at work and at home. He has also not changed his style of socks in the past 2 years. He has had the foot rash for about 18 months. He had no rash on his feet before the Dupixent. He has a tanning bed at home. EXAM The patient appears comfortable in the office today. Lungs are clear to auscultation bilaterally. The oral mucosa is pink and healthy without any lesions or ulcers. The palate elevates in the midline. The nasal mucosa is pink and healthy. There is no epistaxis mucopus or nasal polyposis noted. The nasal septum is approximately in the midline. The skin is notable for dry, red, scaly, itchy skin on the feet bilaterally. He also has a patch of dry, red, scaly, itchy skin on the elbows bilaterally. IMPRESSION: atopic dermatitis vs allergic contact dermatitis - I explained that his symptoms could be consistent with either eczematous dermatitis or allergic contact dermatitis. We discussed the risks and benefits of performing patch testing with the [place] contact dermatitis panel and agreed to pursue this option for him. I explained the need to avoid sun bathing systemic steroids and topical steroids to the back for 2 weeks prior to this procedure. If his patch testing is unremarkable then it may be reasonable to consider phototherapy or nemolivumab in part because he has a tanning bed in the home environment. documented in this encounter [facility] 08-12-2024 Telephone encount er Note Please inform patient that I sent in Benadryl cream to use for itching [facility] 08-12-2024 Miscellaneous Notes Formattin g of this note might be different from the original. Please inform patient that I sent in Benadryl cream to use for itching documented in this encounter [facility] 08-12-2024 History of Presen t illness Narrative Images from the original note were not included. Follow up Diagnosis: Atopic Dermatitis Location: Feet, and hands Symptoms: Itchy and scaling, patient states its effecting his sleep Status: no change in feet Treatments tried and failed: TAC 0.1% cream, Betamethasone cream, prednisone tapers, Protopic, Dupixent was discontinued as hands and feet were adversely reacting. Opzelura cream - patient did not notice a huge improvement. Current treatment: Protopic 0.1 % Ointment Established Patient All pertinent medical history, medications, and allergies were reviewed. General Exam: alert, oriented to person, place, and time, normal affect, well appearing Unaccompanied A focused exam completed based on patient reported problems, see below: 1. Other atopic dermatitis Left foot, Right foot Scaly erythematous plaques +/- dyspigmentation, lichenification, excoriations, and painful fissures. Flaring today. Worse than last visit Discussed that atopic dermatitis is a chronic condition that can be controlled but not cured. Continue Protopic bid/prn when flared, hold if smooth/asymptomatic. Encouraged daily moisturizing and gentle cleansers to prevent flares. Notify office if flaring despite treatment. Recommend paraffin wax soak for hands/feet 1-2 times weekly to help with skin barrier. Would avoid Adbry given adverse reaction to Dupixent (marked worsening) as witnessed by Dr. Bettencourt. Eosinophils marked on pathology report. Consider allergy relation reaction. Vikor culture taken to rule out infection. Start Prednisone 20 mg, 2 tablets for 7 days and then 1 tablet for 7 days. Patient instructed to take Prednisone with food in the morning. Avoid alcohol, NSAIDS, and Asprin while taking medication. Referral sent to [facility]. Follow up in 3 weeks. Specimen 1 - Aerobic culture Account Name: Olimpia Be NPI: Anna Carr [id number] Related Procedures Ambulatory referral to Allergy Related Medications predniSONE (Deltasone) 20 MG tablet 2 tablets for 7 days and then 1 tablet for 7 days diphenhydrAMINE-zinc acetate (Benadryl Extra Strength) cream Apply topically 4 (four) times a day as needed for itching Next Visit: 3 weeks, follow up documented in this encounter [facility] 04-21-2024 Telephone encount er Note completed [facility] 04-21-2024 Miscellaneous Notes Formattin g of this note might be different from the original. completed documented in this encounter [facility] 03-23-2024 Evaluation + Plan note Extrac milton from: Title:SHUKRI Post-operative Note---General Author: Tony Conn MD Date:03/23/24 Plan Transfer/Discharge: Transfer/Discharge Discharge when meets criteria ( To home ). Extracted from: Title:ANES Pre-operative Note 2022 Author:Tony Titus Date:03/23/24 Plan [place] [employer]hesi[employer] (ASA) physical status classification: Class II. Anesthetic Preoperative Plan: Anesthesia General. Future Scheduled Tests Laboratory* Calprotectin, Fecal 02/28/24 * Vitamin D 25 Hydroxy 02/28/24 * CBC w/ Auto Diff 02/28/24 * Comprehensive Metabolic Panel 02/28/24 * C-Reactive Protein 02/28/24 [facility] 07-29-2024 Hospital Discharge instructions Patient Education 03/23/2024 09:43:40 Colonoscopy, Care After Surgery Salam (CUSTOM) Colonoscopy Care After Surgery Please read the instructions outlined below and refer to this sheet in the next few weeks. These discharge instructions provide you with general information on caring for yourself after you leave thespital. Your doctor may also give you specific instructions. While your treatment has been planned according to the most current medical practices available, unavoidable complications occasionally occur. If you have any problems or questions after discharge, please call your doctor. ACTIVITY You may resume your regular activity, but move at a slower pace for the next 24 hours. Take frequent rest periods for the next 24 hours. Walking will help get rid of the air and reduce the bloated feeling in your abdomen (belly). No driving for 24 hours (because of the anesthesia (medicine) used during the test). You may shower. Do not sign any important legal documents or operate any machinery for 24 hours (because of the anesthesia used during the test). NUTRITION Drink plenty of fluids. You may resume your normal diet as instructed by your doctor. Begin with a light meal and progress to your normal diet. Heavy or fried foods are harder to digestand may make you feel nauseated (sick to your stomach). Avoid alcoholic beverages for 24 hours or as instructed. MEDICATIONS You may resume your normal medications unless your doctor tells you otherwise. WHAT YOU CAN EXPECT TODAY Some feelings of bloating in the abdomen. Passage of more gas than usual. Spotting of blood in your stool or on the toilet paper. FOLLOW-UP Your doctor will discuss the results of your test with you. SEEK IMMEDIATE MEDICAL ATTENTION IF: There is more than a spotting of blood in your stool. There is abdominal distention (your abdomen is swollen). There is vomiting. You have a temperature over 101.5 F. There is abdominal pain or discomfort that is severe or gets worse throughout the day. Follow Up Care 02/28/2024 08:46:54 With:Juma Yanez Address: [address], [address] [place] [address]- [phone] Business (1) When: Unknown Comments:Call for any problems. [facility] 07-29-2024 NoteProgress Note-Physician Patient: GRACIELA KANG Age: 49 years Sex: Male : 1975 Associated Diagnoses: None Author: Tony Conn MD Postoperative Information Postoperative disposition: Postoperative disposition: To PACU. Optimetrix number: Optimetrix number [id number]. Anesthetic utilized: General. Health Status Allergies: Allergic Reactions (Selected) No Known Allergies Physical Examination VS/Measurements Pain Assessment: Controlled. General: Awake, Appropriate. Respiratory: Adequate air exchange. Cardiovascular: Stable. Neurological Assessment Anesthetic outcome No anesthetic complications noted. Adequate pain relief. Review / Management Condition: Stable. Plan Transfer/Discharge: Transfer/Discharge Discharge when meets criteria ( To home ).[facility]Result Comment: Electronically Signed By: Tony Conn MD\.br\Date and Time Signed: 03/23/24 10:05 EDT 03-23-2024 NotePatient Education - Text Colonoscopy Care After Surgery Please read the instructions outlined below and refer to this sheet in the next few weeks. These discharge instructions provide you with general information on caring for yourself after you leave thespital. Your doctor may also give you specific instructions. While your treatment has been planned according to the most current medical practices available, unavoidable complications occasionally occur. If you have any problems or questions after discharge, please call your doctor. ACTIVITY You may resume your regular activity, but move at a slower pace for the next 24 hours. Take frequent rest periods for the next 24 hours. Walking will help get rid of the air and reduce the bloated feeling in your abdomen (belly). No driving for 24 hours (because of the anesthesia (medicine) used during the test). You may shower. Do not sign any important legal documents or operate any machinery for 24 hours (because of the anesthesia used during the test). NUTRITION Drink plenty of fluids. You may resume your normal diet as instructed by your doctor. Begin with a light meal and progress to your normal diet. Heavy or fried foods are harder to digestand may make you feel nauseated (sick to your stomach). Avoid alcoholic beverages for 24 hours or as instructed. MEDICATIONS You may resume your normal medications unless your doctor tells you otherwise. WHAT YOU CAN EXPECT TODAY Some feelings of bloating in the abdomen. Passage of more gas than usual. Spotting of blood in your stool or on the toilet paper. FOLLOW-UP Your doctor will discuss the results of your test with you. SEEK IMMEDIATE MEDICAL ATTENTION IF: There is more than a spotting of blood in your stool. There is abdominal distention (your abdomen is swollen). There is vomiting. You have a temperature over 101.5 F. There is abdominal pain or discomfort that is severe or gets worse throughout the day.[facility] NoteColonoscopy Procedure Report Patient: GRACIELA KANG Age: 49 years Sex: Male : 1975 Associated Diagnoses: None Author: Juma Yanez MD Pre-Procedure Procedure Date 03/23/2024 09:33:00 . Procedure Type: Colonoscopy with biopsy. Procedure provider Performed by Juma Yanez MD. Current history and physical Documented on chart. Colonoscopy ([id number]) on 03/28/2021 at 46 Years. Comments: 03/28/2021 11:00 Raven Severino RN biopsies, terminal ileitis inflammation with ulcers, transverse colon erosions, and descending erosions, polyp x1 Esophagogastroduodenoscopy and biopsy ([id number]) on 01/17/2021 at 45 Years. Colonoscopy, flexible; with removal of tumor(s), polyp(s), or other lesion(s) by snare technique (07030) on 01/17/2021 at 45 Years. Knee ([id number]). Tonsillectomy and adenoidectomy ([id number]). Oral ([id number]).. Past Medical History No active or resolved past medical history items have been selected or recorded.. Family History Entire family history is negative.. Procedure History Colonoscopy ([id number]) on 03/28/2021 at 46 Years. Comments: 03/28/2021 11:00 EDT - Korey NORWOOD, Raven biopsies, terminal ileitis inflammation with ulcers, transverse colon erosions, and descending erosions, polyp x1 Esophagogastroduodenoscopy and biopsy ([id number]) on 01/17/2021 at 45 Years. Colonoscopy, flexible; with removal of tumor(s), polyp(s), or other lesion(s) by snare technique (69451) on 01/17/2021 at 45 Years. Knee ([id number]). Tonsillectomy and adenoidectomy ([id number]). Oral ([id number]).. Colorectal neoplasm risk assessment Average risk. Informed Consent After discussing the rationale, risks and benefits, and alternatives to this procedure, the patient provided signed consent for the procedure. Pre-procedure diagnosis: Diagnostic: Crohn's disease. Medications (Selected) Inpatient Medications Ordered Lactated Ringers IV Danna 1000 mL 1,000 mL: 1,000 mL, IV, 100 mL/hr, Routine, Start date 03/23/24 8:56:00 EDT, 10 hour(s), Total volume (mL): 1,000, 79.2 kg, 2, m2 Sodium Chloride 0.9% IV Danna 1000 mL 1,000 mL: 1,000 mL, IV, 20 mL/hr, Routine, Start date 03/23/24 6:50:00 EDT, 50 hour(s), Total volume (mL): 1,000, 79.2 kg, 2, m2 Prescriptions Prescribed mesalamine 500 mg Cap-ER: 1,000 mg = 2 cap(s), Oral, QID, # 720 cap(s), Refills(s) 1, Pharmacy: [facility]/pharmacy #[id number], 182, cm, 02/28/24 8:07:00 EDT, Height/Length Dosing, 79.2, kg, 02/28/24 8:07:00 EDT, Weight Dosing omeprazole 40 mg Cap-DR: 40 mg = 1 cap(s), Oral, Daily, # 90 cap(s), Refills(s) 0, Pharmacy: [facility]/pharmacy #[id number], 182, cm, 10/30/21 10:41:00 EST, Height/Length Dosing, 81.5, kg, 10/30/21 10:41:00 EST,Weight Dosing omeprazole 40 mg Cap-DR: 40 mg = 1 cap(s), Oral, Daily, # 90 cap(s), Refills(s) 0, called to pharmacy (Rx) Documented Medications Documented famotidine 40 mg Tab: Refills(s) 0 tamsulosin 0.4 mg Cap: 0.4 mg = 1 cap(s), Oral, Daily, Enlarged prostate, Refills(s) 0, Other (see comment) ASA Classification: Class II. . Monitoring: See anesthesia record. . Procedure The procedure was performed in the hospital. See anesthesia record for sedation given during procedure. The patient was positioned starting in the left lateral decubitus position. Endoscope type usedwas a pediatric-size. The endoscope was lubricated then introduced through the anus. The scope was advanced to the cecum. No difficulties encountered during the procedure. The bowel preparation quality was good and was adequate (see polyps greater than or equal to 6 millimeters). The patient tolerated the procedure well. Last colonoscopy 2020 Extent reached: 2 min Time of withdrawal: 14 min Current therapy for IBD: mesalamine Findings 1.patchy inflammation in the colon with small ulcers consistent with hx of CD s/p biopsies 2. patchy erythema in the TI s/p biopsies 3. internal hemorrhoids on retroflexion Images Procedure images: Rec_hd_video__[id number].jpg Rec_hd_video_[id number].jpg Rec_hd_video__[id number]_[id number].jpg Rec_hd_video_[id number].jpg Rec_hd_video__[id number].jpg Rec1_hd_video_2023__T08_[id number].jpg Rec1_hd_video__[id number].jpg Rec1_hd_video_2023__T08_[id number].jpg Rec1_hd_video_2023__T08_[id number].jpg . Post-Procedure Complications: none. Estimated blood loss: Minimal. Specimens: sent to pathology. Devices/ implants: none left in place. Impression and Plan Colitis and ileitis consistent with hx of CD s/p biopsies internal hemorrhoids Recommendations: R (more content not included)...[facility] above: Other Comment: Missing Attachment - attachment storage system not supported [id number] Can be viewed [facility] Attachment - attachment storage system not supported [id number] Can be viewed [facility] Attachment - attachment storage system not supported [id number] Can be viewed in [facility]Miss[facility] Attachment - attachment storage system not supported [id number] Can be viewed in [facility]Miss[facility] Attachment - attachment storage system not supported [id number] Can be viewed in source [facility] Attachment - attachment storage system not supported [id number] Can be viewed in [facility] Attachment - attachment storage system not supported [id number] Can be viewed in source [facility]Miss[facility] Attachment - attachment storage system not supported [id number] Can be viewed in source systemMissdan[facility] Attachment - attachment storage system not supported [id number] Can be viewed in [id number] Note Progress Note-Physician Patient: GRACIELA KANG Age: 49 years Sex: Male : 1975 Associated Diagnoses: None Author: Tony Conn MD Preoperative Information Anesthesia Preop Info: Time patient last ate or drank 03/23/2024 00:00:00. Anesthesia history: Patient history: None. Family history+: None. Informed consent: Signed by patient. Re-evaluation prior to induction: Initial evaluation reviewed: No significant change. Review of Systems Eye Ear/Nose/Mouth/Throat Respiratory: Cough, cough x 2 days attributed to allergic sinusitis, No shortness of breath. Cardiovascular: Negative, No chest pain. Gastrointestinal: No heartburn. Musculoskeletal Neurologic Health Status Allergies: Allergic Reactions (Selected) No Known Allergies, Allergies (1) Active Severity Reaction No Known Allergies None Documented Current medications: (Selected) Inpatient Medications Ordered Sodium Chloride 0.9% IV Danna 1000 mL 1,000 mL: 1,000 mL, IV, 20 mL/hr, Routine, Start date 03/23/24 6:50:00 EDT, 50 hour(s), Total volume (mL): 1,000, 79.2 kg, 2, m2 Prescriptions Prescribed mesalamine 500 mg Cap-ER: 1,000 mg = 2 cap(s), Oral, QID, # 720 cap(s), Refills(s) 1, Pharmacy: [facility]/pharmacy #[id number], 182, cm, 02/28/24 8:07:00 EDT, Height/Length Dosing, 79.2, kg, 02/28/24 8:07:00 EDT, Weight Dosing omeprazole 40 mg Cap-DR: 40 mg = 1 cap(s), Oral, Daily, # 90 cap(s), Refills(s) 0, Pharmacy: [facility]/pharmacy #[id number], 182, cm, 10/30/21 10:41:00 EST, Height/Length Dosing, 81.5, kg, 10/30/21 10:41:00 EST,Weight Dosing omeprazole 40 mg Cap-DR: 40 mg = 1 cap(s), Oral, Daily, # 90 cap(s), Refills(s) 0, called to pharmacy (Rx) Documented Medications Documented famotidine 40 mg Tab: Refills(s) 0 tamsulosin 0.4 mg Cap: 0.4 mg = 1 cap(s), Oral, Daily, Enlarged prostate, Refills(s) 0, Other (see comment), Home Medications (5) Active famotidine 40 mg Tab mesalamine 500 mg Cap-ER 1,000 mg = 2 cap(s), Oral, QID omeprazole 40 mg Cap-DR 40 mg = 1 cap(s), Oral, Daily omeprazole 40 mg Cap-DR 40 mg = 1 cap(s), Oral, Daily tamsulosin 0.4 mg Cap 0.4 mg = 1 cap(s), Oral, Daily , Medications (1) Active Scheduled: (0) Continuous: (1) Sodium Chloride 0.9% 1,000 mL 1,000 mL, IV, 20 mL/hr PRN: (0) Problem list: All Problems Acid reflux / SNOMED CT 088020373 / Confirmed Anal pain / SNOMED CT 191132631 / Confirmed Colon polyp / SNOMED CT 422359313 / Confirmed Crohn's disease of both small and large intestine / SNOMED CT 289302378 / Confirmed Essential hypertension / SNOMED CT 75684738 / Confirmed Gastroesophageal reflux disease / SNOMED CT 626785608 / Confirmed Indigestion / SNOMED CT 470527692 / Confirmed Loose stools / SNOMED CT 5308759718 / Confirmed Nausea and vomiting / SNOMED CT 12865879 / Confirmed, Active Problems (9) Acid reflux Anal pain Colon polyp Crohn's disease of both small and large intestine Essential hypertension Gastroesophageal reflux disease Indigestion Loose stools Nausea and vomiting Histories Past Medical History: No active or resolved past medical history items have been selected or recorded. Family History: Entire family history is negative. Procedure history: Colonoscopy ([id number]) on 03/28/2021 at 46 Years. Comments: 03/28/2021 11:00 EDT - Raven Nair RN biopsies, terminal ileitis inflammation with ulcers, transverse colon erosions, and descending erosions, polyp x1 Esophagogastroduodenoscopy and biopsy ([id number]) on 01/17/2021 at 45 Years. Colonoscopy, flexible; with removal of tumor(s), polyp(s), or other lesion(s) by snare technique (23306) on 01/17/2021 at 45 Years. Knee ([id number]). Tonsillectomy and adenoidectomy (938964186). Oral (5828753433). Social History Social & Psychosocial Habits Tobacco 02/28/2024 Tobacco Use: 5-9 cigarettes (between 1 02/28/2024 Tobacco Use: 5-9 cigarettes (between 1 Smokeless tobacco use: Never . Physical Examination Vital Signs 03/23/2024 8:16 EDT Temperature Temporal Artery 37.1 DegC Heart Rate Monitored 100 bpm Respiratory Rate Monitored 18 br/min Systolic Blood Pressure 123 mmHg Diastolic Blood Pressure 79 mmHg Blood Pressure Location Left arm SpO2 97 % Vital Signs (last 24 hrs) Last Charted Temp Temporal 37.1 DegC (MAR 23 08:16) Heart Rate Monitored 100 bpm (MAR 23:16) Resp Rate 18 br/min (MAR 23 08:16) SBP 123 mmHg (MAR 23 08:16) DBP 79 mmHg (MAR 23 08:16) Weight 79.2 kg (MAR 23 08:15) BMI 23.91 (MAR 23:15) Measurements from flowsheet : Measurements 03/23/2024 8:15 EDT Height/Length Measured 182 cm Height/Length Dosing 182.0 cm Weight Dosing 79.2 kg BSA Measured 2 m2 Body Mass Index Measured 23.91 kg/m2 Weight Measured 79.2 kg Airway: Mallampati classification: II (soft palate, fauces, uvula visible). Respiratory: Lungs are clear to auscultation, Respirations are non-labored, adequate air exchange. Cardiovas (more content not included)...[facility] HospitalComment on above:Result Comment: Electronically Signed By: Fabien ARRIETA, Tony Vera\.br\Date and Time Signed: 03/23/24 08:55 [id number] Evaluation + Plan note Future Scheduled Tests Laboratory* Calprotectin, Fecal 02/28/24 * Calprotectin, Fecal 04/10/24 * Lab Miscellaneous-LC 04/10/24 * TIBC Calculated 04/10/24 * HCV RT-PCR, Quant (Non-Graph) 04/10/24 * Acute Hepatitis A B C Panel 04/10/24 * Quantiferon-TB Plus (Client Incubated) 04/02/24 * Vitamin D 25 Hydroxy 02/28/24 * Vitamin D 25 Hydroxy 04/10/24 * CBC w/ Auto Diff 02/28/24 * CBC w/ Auto Diff 04/10/24 * Comprehensive Metabolic Panel 02/28/24 * Comprehensive Metabolic Panel 04/10/24 * C-Reactive Protein 02/28/24 * C-Reactive Protein 04/10/24 * Ferritin 04/10/24 * Folate Level 04/10/24 * Hepatitis B Surface Antibody 04/10/24 * Hepatitis B Surface Antigen 04/10/24 * Iron Level 04/10/24 * Lipid Panel 04/10/24 * Vitamin B12 Level 04/10/24 [facility] 03-07-2022 Evaluation + Plan note Future Scheduled Tests Laboratory* Calprotectin, Fecal 10/30/21 * Calprotectin, Fecal 04/19/21 * Calprotectin, Fecal 01/11/21 * Calprotectin, Fecal 02/16/21 * Sedimentation Rate Automated 10/30/21 * Sedimentation Rate Automated 04/19/21 * Sedimentation Rate Automated 02/16/21 * HBV Core Ab 02/16/21 * IgA, Quant. 10/30/21 * t-Transglutaminase IgA 10/30/21 * HCV Ab w/rfx to Verification 02/16/21 * Hepatitis A Virus (HAV) Antibody, Total 02/16/21 * Quantiferon-TB Plus (Client Incubated) 02/16/21 * HIV Screen 4th Generation wRfx 02/16/21 * Creatinine 04/19/21 * Creatinine 02/16/21 * CBC w/ Indices 10/30/21 * Comprehensive Metabolic Panel 10/30/21 * C-Reactive Protein 04/19/21 * C-Reactive Protein 02/16/21 * Hepatic Function Panel 02/16/21 * Hepatitis A Antibody IgM 02/16/21 * Hepatitis B Surface Antibody 02/16/21 * Hepatitis B Surface Antigen 02/16/21 [facility] Future Appointments Appointment Date:02/05/2022 01:40:00 PM Scheduled Provider:Amanda Houser CNP Location:[facility] App[facility]ment Type:[facility] Follow Up Future Scheduled Tests Laboratory* Calprotectin, Fecal 10/30/21 * Calprotectin, Fecal 04/19/21 * Calprotectin, Fecal 02/16/21 * Sedimentation Rate Automated 10/30/21 * Sedimentation Rate Automated 04/19/21 * Sedimentation Rate Automated 02/16/21 * HBV Core Ab 02/16/21 * IgA, Quant. 10/30/21 * t-Transglutaminase IgA 10/30/21 * HCV Ab w/rfx to Verification 02/16/21 * Hepatitis A Virus (HAV) Antibody, Total 02/16/21 * Quantiferon-TB Plus (Client Incubated) 02/16/21 * HIV Screen 4th Generation wRfx 02/16/21 * Creatinine 04/19/21 * Creatinine 02/16/21 * CBC w/ Indices 10/30/21 * Comprehensive Metabolic Panel 10/30/21 * C-Reactive Protein 04/19/21 * C-Reactive Protein 02/16/21 * Hepatic Function Panel 02/16/21 * Hepatitis A Antibody IgM 02/16/21 * Hepatitis B Surface Antibody 02/16/21 * Hepatitis B Surface Antigen 02/16/21 [facility] Evaluation + Plan note Future Appointments Appointment Date:12/19/2023 01:00:00 PM Scheduled Provider:Angel SMITH MD [place] [place] [facility] Appointment Type:[facility] Follow Up [facility] Evaluation + Plan note Future Appointments Appointment Date:03/23/2024 08:00:00 AM Scheduled Provider: Location:[facility] Services Appointment Type:Surgery FT Future Scheduled Tests Laboratory* Calprotectin, Fecal 02/28/24 * Vitamin D 25 Hydroxy 02/28/24 * CBC w/ Auto Diff 02/28/24 * Comprehensive Metabolic Panel 02/28/24 * C-Reactive Protein 02/28/24 Radiology* CT Abdomen/Pelvis w/contrast (enterography) 02/28/24 [facility] Digestive [facility] Evaluation + Plan note Future Appointments Appointment Date:03/23/2024 09:00:00 AM Scheduled Provider: Location:[facility] Services Appointment Type:Surgery FT Future Scheduled Tests Laboratory* Calprotectin, Fecal 02/28/24 * Vitamin D 25 Hydroxy 02/28/24 * CBC w/ Auto Diff 02/28/24 * Comprehensive Metabolic Panel 02/28/24 * C-Reactive Protein 02/28/24 [facility] Future App[facility]ments Appointment Date:08/14/2024 08:15:00 AM Scheduled Provider:Juma Yanez MD Location[place] [place] [facility] Appointment Type:[facility] Follow Up Diagnostic Tests Pending * Quantiferon-TB Plus (Client Incubated) 08/07/24 * HCV RT-PCR, Quant (Non-Graph) 08/07/24 * Hepatitis B Surface Antibody 08/07/24 * Hepatitis B Surface Antigen 08/07/24 * Acute Hepatitis A B C Panel 08/07/24 Future Scheduled Tests Laboratory* Calprotectin, Fecal 02/28/24 * Calprotectin, Fecal 04/10/24 * Vitamin D 25 Hydroxy 02/28/24 * CBC w/ Auto Diff 02/28/24 * Comprehensive Metabolic Panel 02/28/24 * C-Reactive Protein 02/28/24 [facility] Evaluation + Plan note Future Appointments Appointment Date:11/06/2024 08:15:00 AM Scheduled Provider:Juma Yanez MD Location:[facility] [place] [facility] Appointment Type:[facility] Follow Up Future Scheduled Tests Laboratory* Calprotectin, Fecal 08/14/24 * Calprotectin, Fecal 02/28/24 * Calprotectin, Fecal 04/10/24 * Vitamin D 25 Hydroxy 02/28/24 * CBC w/ Auto Diff 02/28/24 * Comprehensive Metabolic Panel 02/28/24 * C-Reactive Protein 02/28/24 * Hepatic Function Panel 11/09/24 [facility] Dig[facility]ive [facility] Evaluation note* Diagnosis Other atopic dermatitis [facility] Diagnosis Gastroesophageal reflux disease, unspecified whether esophagitis present [facility] Diagnosis Other atopic dermatitis [facility]* Diagnosis Other atopic dermatitis documented in this encounter [facility] Narrative No data available for this section [facility] No data available for this section [facility] No data available for this section [facility] Dig[facility] Health Summary Purpose Family History No Family History Records Found No data available for this section No data available for this section No data available for this section No data available for this section No Family History Records Found No data available for this section No Family History Records FoundNo Family History Records FoundNo Family History Records FoundNo Family History Records FoundNo Family History Records FoundNo Family History Records FoundNo Family History Records FoundNo Family History Records FoundNo Family History Records FoundNo Family History Records FoundNo Family History Records Found No data available for this section No Family History Records FoundNo Family History Records FoundNo Family History Records FoundNo Family History Records FoundNo Family History Records Found No data available for this section No Family History Records FoundNo Family History Records FoundNo Family History Records FoundNo Family History Records Found Advance Directives No Advanced Directives Records FoundNo Advanced Directives Records FoundNo Advanced Directives Records FoundNo Advanced Directives Records FoundNo Advanced Directives Records FoundNo Advanced Directives Records FoundNo Advanced Directives Records FoundNo Advanced Directives Records FoundNo Advanced Directives Records FoundNo Advanced Directives Records FoundNo Advanced Directives Records FoundNo Advanced Directives Records FoundNo Advanced Directives Records FoundNo Advanced Directives Records FoundNo Advanced Directives Records FoundNo Advanced Directives Records FoundNo Advanced Directives Records FoundNo Advanced Directives Records FoundNo Advanced Directives Records FoundNo Advanced Directives Records FoundNo Advanced Directives Records FoundNo Advanced Directives Records Found Additional Source Comments (unrecognized sect ion and content) No Status Records FoundNo Status Records FoundNo Status Records FoundNo Status Records FoundNo Status Records FoundNo Status Records FoundNo Status Records FoundNo Status Records FoundNo Status Records FoundNo Status Records FoundNo Status Records FoundNo Status Records FoundNo Status Records FoundNo Status Records FoundNo Status Records FoundNo Status Records FoundNo Status Records FoundNo Status Records FoundNo Status Records FoundNo Status Records FoundNo Status Records FoundNo Status Records Found INFORMATION SOURCE (unrecogn ized section and content) DATE CREATED AUTHOR 04/01/2021 [facility] DATE CREATED AUTHOR AUTHOR'S ORGANIZ ATION 03/27/2024 [facility] DATE CREATED AUTHOR AUTHOR'S ORGANIZ ATION 08/09/2024 [facility] DATE CREATED AUTHOR AUTHOR'S ORGANIZ ATION 08/11/2024 [facility] DATE CREATED AUTHOR AUTHOR'S ORGANIZ ATION 08/14/2024 [facility] DATE CREATED AUTHOR AUTHOR'S ORGANIZ ATION 08/17/2024 [facility] DATE CREATED AUTHOR AUTHOR'S ORGANIZ ATION 08/20/2024 [facility] DATE CREATED AUTHOR AUTHOR'S ORGANIZ ATION 09/18/2024 [facility] EPIC DATE CREATED AUTHOR AUTHOR'S ORGANIZ ATION 09/21/2024 [facility] Patient Care team informatio n (unrecognized section and content) [employer] Relationship Specialty Start Date End Date Jamal Kang MD [address] [place] [address] PCP - General Family Medicine 01/01/23 Anna Carr APRN-AMMONIA BOX TENDER [address] [place] [address] PCP - [place] [employer] 11/25/23 [employer] Relationship Specialty Start Date End Date Jamal Knag MD [address] [place] [address] PCP - General Family Medicine 01/01/23 Anna Carr APRN-AMMONIA BOX TENDER [address] [place] [address] PCP - [place] [employer] 11/25/23 [employer] Relationship Specialty Start Date End Date Jamal Kang MD [address] [place] [address] PCP - General Family Medicine 01/01/23 Anna Carr APRN-AMMONIA BOX TENDER [address] [place] [address] PCP - [place] [employer] 11/25/23 [employer]or [employer] Relationship Specialty Start Date End Date Jamal Kang MD [address] [place] [address] PCP - General Family Medicine 01/01/23 Anna Carr APRN-AMMONIA BOX TENDER [address] [place] [address] PCP - [place] [employer] 11/25/23 [employer]or [employer] Relationship Specialty Start Date End Date Jamal Kang MD [address] [place] [address] PCP - General Family Medicine 01/01/23 Anna Carr, KAYLIN-AMMONIA BOX TENDER [address] [facility] [address] [place] [address] PCP - [place] [employer] 11/25/23 Reason for Visit (unrecogniz ed section and content) Reason Comments Follow-up Reason Comments Med Refill Reason Comments new patient Pt states he has bee n getting red, dry patches for about two years. Currently his feet are peeling. Specialty Diagnoses / Procedures Referred By Contdaksha t Referred To Contact Allergy Diagnoses Other atopic dermatitis Procedures CA OFFICE/OUTPATIENT NEW HIGH MDM Anna Carr, PHARMACY RESIDENT-AMMONIA BOX TENDER [address] [facility] [address] [place] [address] Phone: tel: fax: Yohana Sewell MD [address] [facility] [address] [place] [address] Phone: tel: fax: Referral ID Status Reason Start Date Expiration Date V isits Requested Visits Authorized [id number] Closed Specialty Services Required 08/12/2024 02/08/2025 1 1 Reason Comments Follow-up FOR RECORDS PERTAINING TO PATIENTS WHO ARE OR HAVE BEEN ENROLLED IN A CHEMICAL DEPENDENCY/SUBSTANCEABUSE PROGRAM, SOME INFORMATION MAY BE OMITTED. This clinical summary was aggregated from multiple sources. Caution should be exercised in using it in the provision of clinical care. This summary normalizes information from multiple sources, and as a consequence, information in this document may materially change the coding, format and clinical context of patient data. In addition, data may be omitted in some cases. CLINICAL DECISIONS SHOULD BE BASED ON THE PRIMARY CLINICAL RECORDS. [employer] provides no warranty or guarantee of the accuracy or completeness of information in this document.
== END 2024-10-14 06:41 | disposition home or self-care (01) ==
LOC: MRI 06:40
PROVIDERS: PCP Family Medicine; Visit Provider Orthopaedic Surgery Orthopaedic Surgery of the Spine
DX: M54.50 Low back pain, unspecified (principal); M51.379 Other intervertebral disc degeneration, lumbosacral region without mention of lumbar back pain or lower extremity pain; M51.35 Other intervertebral disc degeneration, thoracolumbar region
CPT/HCPCS: 72148

== ENCOUNTER 2024-10-20 07:15 | Emergency (ER) | payer BC, SELFPAY ==
[2024-10-20 07:18] VITALS: BP 157/105; PULSE 89; TEMP 36.7; O2SAT 98; BMI 22.6
--- OUTSIDE RECORDS SUMMARY | 2024-10-20 07:27 | XMS_ITS | CCD ---
Author Organization [facility] Care Team Providers Care Manager Learning Name Role Phone REQUEST, DR NONE LISTED Admitting Unavaila ble REQUEST, NONE LISTED Attending Unavaila ble REQUEST, NONE LISTED Consulting Unavaila ble Jaquan Severino Primary Care Physician [phone] Juma Yanez Attending Unavailable Juma Yanez A. Admitting Unavailable Jaquan Severino MD Primary Care Provider Bruno EWING-Anna CORDON Unavailable Juma Yanez. Attending Unavailable Mouchli Mohamad A. Admitting Unavailable Mouchli Mohamad A. Attending Unavailable Mouchli Mohamad A. Attending Unavailable Mouchli Mohamad A. Attending Unavailable Mouchli Mohamad A. Referring Unavailable Mouchli, Mohamad A. Admitting Unavailable Mouchli, Mohamad A. Attending Unavailable Mouchli Mohamad A. Admitting Unavailable Mouchli, Mohamad A. Attending Unavailable Momanuel Mohamad A. Referring Unavailable Deisy Dunaway Attending Unavaila ble Deisy Dunaway Attending Unavaila ble Mouchli Mohamad A. Attending Unavailable YOHANA SEWELL Attending Unavailable ANNA CARR Referring Unavailable ANNA CARR Attending Unavailable ANNA CARR Attending Unavailable RAQUEL DEUTSCH Attending Unavailable ANNA CARR Attending Unavailable GOMEZ SEBASTIAN Attending Unavailable RUTH LOVE Referring MARYAN Zhou Attending Unavailable ANNA CARR Attending Unavailable Medications Current Medications Medication Drug Class(es) Dates Sig (Normalized) Sig (Original) diphenhydrAMINE hydrochloride 20 mg/ml / zinc acetate 1 mg/ml topical cream (13 sources) Histamine-1 Receptor Antagonist Start: 4 End: 5 diphenhydrAMINE-zinc acetate (Benadryl Extra Strength) cream Indications: Other atopic dermatitis Apply topically 4 (four) times a day as needed for itching 35 g 11 08/12/2024 08/12/2025 Active famotidine 40 mg oral tablet (20 sources) Histamine-2 Receptor Antagonist Start: 3 End: 4 take 1 tablet by mouth at bedtime famotidine (Pepcid) 40 MG tablet Indications: Gastroesophageal reflux disease, unspecified whether esophagitis present TAKE 1 TABLET BY MOUTH AT BEDTIME 90 tablet 3 04/21/2024 Active Hadlima PushTouch 40 MG/0.8ML solution auto-injector (3 sources) Start: 5 Hadlima PushTouch 40 MG/0.8ML solution auto-injector 09/28/2024 Active mesalamine 500 mg extended release oral capsule (20 sources) Aminosalicylate Start: 3 take 2 capsules by mouth four times daily mesalamine 500 mg Cap-ER 1,000 mg = 2 cap(s), Oral, QID, # 720 cap(s), Refills(s) 1, Pharmacy: [facility]/pharmacy #[id number], 182, cm, 02/28/24 8:07:00 EDT, Height/Length Dosing, 79.2, kg, 02/28/24 8:07:00 EDT, Weight Dosing Start Date: 03/10/24 Status: Ordered Start: 10-30-2021 take 2 capsules by m outh four times daily mesalamine 500 mg Cap-ER 1,000 mg = 2 cap(s), Oral, QID, # 240 cap(s), Refills(s) 11, Pharmacy: [facility]/pharmacy #[id number], 182, cm, 10/30/21 10:41:00 EST, Height/Length [...] day(s), # 90 cap(s), Refills(s) 1, Pharmacy: [facility]/pharmacy #[id number], 182, cm, 10/30/21 10:41:00 EST, Height/Length Dosing, 81.5, kg, 10/30/21 10:41:00 EST, Weight Dosing Start Date: 11/28/21 Stop Date: 05/27/22 Status: Ordered polyethylene glycol 3350 190049 mg / potassium chloride 1480 mg / sodium bicarbonate 5720 mg / sodium chloride 54614 mg powder for oral solution (1 source) Osmotic Laxative Start: 12-20-2022 take 1 dose by mouth once NuLYTELY Bruno oral powder for reconstitution See Instructions, 1 EA, Refill(s) 0, Per physician instructions, prior to colonoscopy., [facility]/pharmacy #[id number], 182, cm, 12/20/22 13:35:00 EDT, Height/Length [...] (Therapy completed) tacrolimus 0.001 mg/mg topical ointment (13 sources) Calcineurin Inhibitor Immunosuppressant Start: 08-03-2024 tacrolimus [...] Active triamcinolone acetonide 1 mg/ml topical cream (15 sources) Corticosteroid triamcinolone (Kenalog) 0.1 % cream 1 application 1 (one) time each day at the same time. Active Problems Active Problems Problem Classification Problem Date Documented Da te Episodic/Chronic Allergic reactions (10 sources) Atopic dermatitis; Translations: [Other atopic dermatitis] [...] Abnormal feces; Translations: [Other fecal abnormalities] Onset: 4 Episodic Other gastrointestinal disorders (6 sources) Loose stool 02-28-2024 Episodic Regional enteritis and ulcerative colitis (16 sources) Regional ileocolitis; Translations: [Crohn's disease of small AND large intestines] Onset: 3 02-16-2021 Chronic Residual codes; unclassified (1 source) Tobacco user 08-14-2024 Episodic Spondylosis; intervertebral disc disorders; other back problems (1 source) Lumbar radiculopathy; Translations: [Radiculopathy, lumbar region] 10-15-2024 Episodic Past or Other Problems Problem Classification Problem Date Documented Da te Episodic/Chronic Nausea and vomiting (7 sources) Nausea and vomiting Onset: 10-30-2021 02-20-2024 Episodic Results Test Name Value Interpretation Reference Range Facility EMG 1 Extremeityon 5 An acute and chronic L5 radiculopathy on the right which is moderate to severe in degree electrically. [facility] 5-6 Nerveson 10-15-2024 An acute and chronic L5 radiculopathy on the right which is moderate to severe in degree electrically. [facility] [place] [address] Magnetic Resonance Report Signed Patient: GRACIELA SEVERINO MR#: [id number] : 1975 Acct:[id number] Age/Sex: 49 / M ADM Date: 10/14/24 Loc: MRI Attending Dr: Edelmira Dias M.D. Ordering Physician: Edelmira Dias M.D. Date of Service: 10/14/24 Procedure(s): MR lumbar spine wo con Accession Number(s): [id number] cc: JAQUAN SEVERINO ; Edelmira Dias M.D. [place] [address] Patient Name: GRACIELA SEVERINO MRN: [id number] date: 1975 Sex: M Assigned Patient Location: MRI Current Patient Location: MRI Accession/Order Number: [id number] Exam Date: 10/14/2024 14:49 Report Date: 10/14/2024 14:55 At the request of: EDELMIRA DIAS MD Procedure: MR lumbar spine wo con MR lumbar spine wo con 10/14/2024 7:19 AM SIGNS AND SYMPTOMS: low back pain without sciatica M54.50 PROTOCOL: Multiplanar multisequence MR images of the lumbar spine were obtained without IV contrast COMPARISON: 09/02/2024 FINDINGS: The bones of the lumbar spine are in anatomic alignment. There is preservation of vertebral body heights. There is mild to moderate intervertebral disc height loss at L5-S1. There is mild intervertebral disc height loss at T12-L1. There is moderate to severe disc height loss at T11-T12. Mild Modic type II fatty endplate degenerative changes are noted at L5-S1 with anterior osteophyte formation. The conus terminates at the superior endplate of the L2 vertebral body level. No epidural or paraspinous fluid collection is appreciated. At T12-L1: There is a broad-based disc bulge contributing to mild spinal canal narrowing with mild left neural foraminal stenosis. At L1-L2: There is a normal disc, central canal, and neural foramen. At L2-L3: There is a normal disc, central canal, and neural foramen. At L3-L4: There is a normal disc, central canal, and neural foramen. At L4-L5: There is a broad-based disc bulge with facet hypertrophy. There is mild spinal canal stenosis with mild bilateral neural foraminal narrowing. At L5-S1: There is a circumferential disc bulge with a focal central disc extrusion along with mild caudal migration. There is mild spinal canal narrowing with mild to moderate bilateral neural foraminal stenosis. MR/MR lumbar spine wo con IMPRESSION: At L5-S1: There is a circumferential disc bulge with a focal central disc extrusion along with mild caudal migration. There is mild spinal canal narrowing with mild to moderate bilateral neural foraminal stenosis. At L4-L5: There is a broad-based disc bulge with facet hypertrophy. There is mild spinal canal stenosis with mild bilateral neural foraminal narrowing. At T12-L1: There is a broad-based disc bulge contributing to mild spinal canal narrowing with mild left neural foraminal stenosis. Impression dictated by: Clemente Austin M.D.10/14/2024 2:55 PM Dictation Location: [place] [address] Electronically authenticated by: [id number] Y Date: 10/14/2024 14:55 Dictated By: Clemente Austin M.D. Signed By: 10/14/24 1458 DD/ 1455 TD/TT: Disease Education Specialist: [facility] Radiology, Radiologi MD tanya - 10/14/2024 [place] [address] Magnetic Resonance Report Signed Patient: GRACIELA SEVERINO MR#: [id number] : 1975 Acct:[id number] Age/Sex: 49 / M ADM Date: 10/14/24 Loc: MRI Attending Dr: Edelmira Dias M.D. Ordering Physician: Edelmira Dias M.D. Date of Service: 10/14/24 Procedure(s): MR lumbar spine wo con Accession Number(s): [id number] cc: JAQUAN SEVERINO ; Edelmira Dias M.D. [place] [address] Patient Name: GRACIELA SEVERINO MRN: [id number] date: 1975 Sex: M Assigned Patient Location: MRI Current Patient Location: MRI Accession/Order Number: [id number] Exam Date: 10/14/2024 14:49 Report Date: 10/14/2024 14:55 At the request of: EDELMIRA DIAS MD Procedure: MR lumbar spine wo con MR lumbar spine wo con 10/14/2024 7:19 AM SIGNS AND SYMPTOMS: low back pain without sciatica M54.50 PROTOCOL: Multiplanar multisequence MR images of the lumbar spine were obtained without IV contrast COMPARISON: 09/02/2024 FINDINGS: The bones of the lumbar spine are in anatomic alignment. There is preservation of vertebral body heights. There is mild to moderate intervertebral disc height loss at L5-S1. There is mild intervertebral disc height loss at T12-L1. There is moderate to severe disc height loss at T11-T12. Mild Modic type II fatty endplate degenerative changes are noted at L5-S1 with anterior osteophyte formation. The conus terminates at the superior endplate of the L2 vertebral body level. No epidural or paraspinous fluid collection is appreciated. At T12-L1: There is a broad-based disc bulge contributing to mild spinal canal narrowing with mild left neural foraminal stenosis. At L1-L2: There is a normal disc, central canal, and neural foramen. At L2-L3: There is a normal disc, central canal, and neural foramen. At L3-L4: There is a normal disc, central canal, and neural foramen. At L4-L5: There is a broad-based disc bulge with facet hypertrophy. There is mild spinal canal stenosis with mild bilateral neural foraminal narrowing. At L5-S1: There is a circumferential disc bulge with a focal central disc extrusion along with mild caudal migration. There is mild spinal canal narrowing with mild to moderate bilateral neural foraminal stenosis. MR/MR lumbar spine wo con IMPRESSION: At L5-S1: There is a circumferential disc bulge with a focal central disc extrusion along with mild caudal migration. There is mild spinal canal narrowing with mild to moderate bilateral neural foraminal stenosis. At L4-L5: There is a broad-based disc bulge with facet hypertrophy. There is mild spinal canal stenosis with mild bilateral neural foraminal narrowing. At T12-L1: There is a broad-based disc bulge contributing to mild spinal canal narrowing with mild left neural foraminal stenosis. Impression dictated by: Clemente Austin M.D.10/14/2024 2:55 PM [facility] Electron[facility] authenticated by: [id number] Y Date: 10/14/2024 14:55 Dictated By: Clemente Austin M.D. Signed By: 10/14/248 DD/ 54 TD/TT: Disease Education Specialist: [facility] Radiology Study observation (narrative) [facility] MR LUMBAR SPINE WO CONOrdere d By: Radiologist Radiology on 10-14-2024 [facility] Work Phone: Patient Letter FTon 2024 Patient Letter [facility] Patient Letter [facility] September 21, 2024 GRACIELA SEVERINO [address] [place] [id number] : 1975 To whom this way concern, the above patient has been our care here at [facility] since 2020 for diagnosis of Crohn's disease (Chronic inflammatory bowel disease). Patient has been treated with oral therapy in the past and is now being treated with Hadlima until further notice. If there are any further questions, concerns or any issues please contact our office at [phone]. Thank you, [facility] Juma Yanez MD Normal [facility] Lab Miscellaneous-LCon 08-18 Lab Miscellaneous COMMENT Invalid Interpretation Code [facility] Comment on above: Result Comment: Test Ordered: [id number] TPMT and NUDT15 Genotyping TPMT Genotype *1/*1 L9 This test was developed and its performance characteristics determined by [employer]. It has not been cleared or approved by the Food and Drug Administration. TPMT Metabolic Activity Normal L9 This test was developed and its performance characteristics determined by [employer]. It has not been cleared or approved by the Food and Drug Administration. NUDT15 Genotype *1/*1 L9 This test was developed and its performance characteristics determined by [employer]. It has not been cleared or approved by the Food and Drug Administration. NUDT15 Metabolic Activity Normal L9 This test was developed and its performance characteristics determined by [employer]. It has not been cleared or approved by the Food and Drug Administration. Director Review Comment L9 Roger Brody MD, PhD Director Designer Material Interpretation Comment L9 The thiopurine methyltransferase (TPMT) [...] distinguished by testing TPMT enzyme levels [Test #004108]. ... Molecular-based testing is highly accurate, but as in any laboratory test rare diagnostic errors may occur. ... References: ... 1. https://www.fda.gov/medical-devices/precision-medicine/table- pharmacogenetic-association. 2. Cheryl PARRA., Brien M., Josue Peguero., et al. Clinical Pharmacogenetics Implementation Consortium Guideline for Thiopurine Dosing Based on TPMT and NUDT15 Genotypes: 2018 Update. Clinical Pharmacology and Therapeutics. 2019; Vol 105(5). 3. ALMA Higgins., Carleen FLYNN., Celso FARIAS., et al. TPMT and NUDT15 Genotyping Recommendations: A Joint Consensus Recommendation of the Association for Molecular Pathology, Clinical Pharmaco- genetics Implementation Consortium, College of [employer] Pathologists, Dut (more content not included)... Performed By: #### 1 [id number] #### [facility] [address] [place] [address] Gastroenterology Office/Clin ic Noteon 08-14-2024 Gastroenterology Office/Clinic [...] High (08/07/24) Chloride: 99 mmol/L Low (08/07/24) [place] Absolute: 0.5 E9/L (08/07/24) CO2: 29 mmol/L (08/07/24) [place] Auto: 6.9 % (08/07/24) Creatinine: 0.7 mg/dL [...] not do (more content not included)... Normal [facility] Comment on above: Result Comment: Elec tronically Signed By: Renata ARRIETA, Juma Mcadams\.br\Date and Time Signed: 08/14/24 08:51 EST Patient Letter FTMCon 2023 Patient Letter [facility] [place] Patient Letter [facility] August 14, 2024 [place] [address] : 1975 To whom this may concerns, patient is treated at [facility] for management of his Crohn's disease. If there are any further question or concerns, please give us a call at [phone]. [facility] Juma Yanez MD Normal [facility] Provider Letteron 08-14-2024 Provider Letter Provider Letter August 14, 2024 [place] [address] : 1975 To Whom It May Concern, Please excuse above patient from work. Due to being seen in our office, if you have any question's feel nain to call our office. Date of Illness:08/14/24 From: _08/14/24 To: _08/14/24 Sincerely, [facility] [phone] Normal [facility] Quantiferon-TB Plus (Client Incubated)on 08-11-2024 Gamma interferon background IA Qn (Bld) 0.00 International_Unit/mL Invalid Interpretation Code [facility] Comment on above: Performed By: #### 1 [id number] #### [facility] [address] [place] [address] M. tuberculosis stim IFN-g by CD4+ CD8+ T-cells corrected for background Qn (Bld) 0.00 International_Unit/mL Invalid Interpretation Code [facility] Comment on above: Performed By: #### 1 [id number] #### [facility] [address] [place] [id number] M. tuberculosis stim IFN-g by CD4+ T-cells corrected for background Qn (Bld) 0.00 International_Unit/mL Invalid Interpretation Code [facility] Comment on above: Performed By: #### 1 [id number] #### [facility] [address] [place] [address] M. tuberculosis stim IFN-g Ql (Bld) [Interp] Negative Invalid Interpretation Code Negative [facility] Comment on above: Result Comment: No [...] interferon gamma. Chemiluminescence immunoassay methodology Performed at: [facility] [employer] [address] [id number] PhD Brandin Garay Performed By: #### 1 [id number] #### [facility] [address] [place] [address] Mitogen stimulated gamma interferon corrected for background Qn (Bld) >10.00 Invalid Interpretation Code [facility] Comment on above: Performed By: #### 1 [id number] #### [facility] [address] [place] [id number] Service comment (Unsp spec) [Interp] Comment Invalid Interpretation Code [facility] Comment on above: Result Comment: Nicholas [...] for the test. Performed By: #### 1 [id number] #### [facility] [address] [place] [id number] .Interpretation:on 4 HCV Ab IA Ql Comment Invalid Interpretation Code [facility] Comment on above: Result Comment: Not infected with HCV unless early or acute infection is suspected (which may be delayed in an immunocompromised individual), or other evidence exists to indicate HCV infection. Performed at: [address] [id number] PhD Brandin Garay Performed By: #### 2 [id number] #### [facility] [address] [place] [address] Acute Hepatitis A B C Panelo n 08-09-2024 HAV IgM IA Ql Negative Invalid Interpretation Code Negative [facility] Comment on above: Result Comment: A ne gative anti-HAV IgM result suggests no recent or current HAV infection. Performed By: #### 3 [id number] #### [facility] [address] [place] [address] HBV core IgM IA Ql Negative Invalid Interpretation Code Negative [facility] Comment on above: Performed By: #### 3 [id number] #### [facility] [address] [place] [address] HBV surface Ag IA Ql Negative Invalid Interpretation Code Negative [facility] Comment on above: Performed By: #### 3 [id number] #### [facility] [address] [place] [address] HCV IgG IA Ql Non-Reactive Invalid Interpretation Code Non Reactive [facility] Comment on above: Result Comment: Perf ormed at: [facility] [id number] PhD Brandin Garay Performed By: #### 3 [id number] #### [facility] [address] [place] [address] HCV RT-PCR, Quant (Non-Graph )on 08-09-2024 HCV RNA TACO+probe Qn Not detected Invalid Interpretation Code [facility] Comment on above: Performed By: #### 1 [id number] #### [facility] [address] [place] [id number] Reference Lab Test Reference Range Comment Invalid Interpretation Code [facility] Comment on above: Result Comment: The quantitative range of this assay is 15 IU/mL to 100 million IU/mL. Performed at: [address] [id number] MD Kendrick Alamo Performed By: #### 1 [id number] #### [facility] [address] [place] [address] Hep Bs Abon 08-09-2024 HBV surface Ab Ql (S) Non-Reactive Invalid Interpretation Code [facility] Comment on above: Result Comment: Non Reactive: Not immune to HBV infection. Equivocal: Unable to determine if anti-HBs is present at levels consistent with immunity. Reactive: Anti-HBs concentration detected at greater than 10 mIU/mL. Individual is considered to be immune to infection with HBV. Performed at: [facility] [id number] PhD Brandin Garay Performed By: #### 2 [id number] #### [facility] [address] [place] [address] CBC w/ Auto Diffon 4 Basophils/100 WBC (Bld) 0.8 % Normal 0.0-2.0 [facility] Comment on above: Performed By: #### 2 [id number] #### [facility] [address] [place] [address] Basophils/Leukocyte s Auto (Bld) [Pure # fraction] 0.1 E9/L Normal 0.0-0.2 [facility] Comment on above: Performed By: #### 2 [id number] #### [facility] [address] [place] [address] Eosinophils (Bld) [#/Vol] 0.2 E9/L Normal 0.0-0.5 [facility] Comment on above: Performed By: #### 2 [id number] #### [facility] [address] [place] [address] Eosinophils/100 WBC (Bld) 2.7 % Normal 0.0-8.0 [facility] Comment on above: Performed By: #### 2 [id number] #### [facility] [address] [place] [address] Erythrocyte distribution width (RBC) [Ratio] 12.7 % Normal 10.9-14.2 [facility] Comment on above: Performed By: #### 2 [id number] #### [facility] [address] [place] [address] Hematocrit (Bld) [Volume fraction] 42.8 % Normal 37.7-49.0 [facility] Comment on above: Performed By: #### 2 [id number] #### [facility] [address] [place] [address] Hemoglobin (Bld) [Mass/Vol] 15.0 g/dL Normal 13.5-17.5 [facility] Comment on above: Performed By: #### 2 [id number] #### [facility] [address] [place] [address] Lymphocytes (Bld) [#/Vol] 1.9 E9/L Normal 1.0-4.0 [facility] Comment on above: Performed By: #### 2 [id number] #### [facility] [address] [place] [address] Lymphocytes/100 WBC (Bld) 26.1 % Normal 14.0-50.0 [facility] Comment on above: Performed By: #### 2 [id number] #### [facility] [address] [place] [address] MCH (RBC) [Entitic mass] 36.7 pg High 27.0-34.0 [facility] Comment on above: Performed By: #### 2 [id number] #### [facility] [address] [place] [address] MCHC (RBC) [Mass/Vol] 35.1 g/dL Normal 31.4-36.0 [facility] Comment on above: Performed By: #### 2 [id number] #### [facility] [address] [place] [address] MCV (RBC) [Entitic vol] 104.5 fL High 80.0-100.0 [facility] Comment on above: Performed By: #### 2 [id number] #### [facility] [address] [place] [address] Monocytes (Bld) [#/Vol] 0.5 E9/L Normal 0.2-1.0 [facility] Comment on above: Performed By: #### 2 [id number] #### [facility] [address] [place] [address] Neutrophils (Bld) [#/Vol] 4.5 E9/L Normal 2.0-7.5 [facility] Comment on above: Performed By: #### 2 [id number] #### [facility] [address] [place] [address] Neutrophils/100 WBC (Bld) 63.5 % Normal 36.0-75.0 [facility] Comment on above: Performed By: #### 2 [id number] #### [facility] [address] [place] [address] Platelet mean volume (Bld) [Entitic vol] 7.1 fL Normal 6.4-10.8 [facility] Comment on above: Performed By: #### 2 [id number] #### [facility] [address] [place] [address] Platelets (Bld) [#/Vol] 232.0 E9/L Normal 150.0-500.0 [facility] Comment on above: Performed By: #### 2 [id number] #### [facility] [address] [place] [address] RBC (Bld) [#/Vol] 4.1 E12/L Low 4.3-5.9 [facility] Comment on above: Performed By: #### 2 [id number] #### [facility] [address] [place] [address] WBC corrected for nucl RBC Auto (Bld) [#/Vol] 7.2 E9/L Normal 4.0-11.0 [facility] Comment on above: Performed By: #### 2 [id number] #### [facility] [address] [place] [address] CHEMISTRYOrdered By: SYSTEM SYSTEM on 08-07-2024 25-hydroxyvitamin [...] 08-07-2024 Albumin [Mass/Vol] 4.5 g/dL Normal 3.3-5.0 [facility] Comment on above: Performed By: #### 2 [id number] #### [facility] [address] [place] [address] Albumin/Globulin (S) [Mass conc ratio] 1.3 Normal 1.1-2.2 [facility] Comment on above: Performed By: #### 2 [id number] #### [facility] [address] [place] [address] ALP [Catalytic activity/Vol] 66 Int._Unit/L Normal 21-98 [facility] Comment on above: Performed By: #### 2 [id number] #### [facility] [address] [place] [address] ALT No additional P-5'-P [Catalytic activity/Vol] 37 Int._Unit/L Normal 6-46 [facility] Comment on above: Performed By: #### 2 [id number] #### [facility] [address] [place] [address] Anion gap [Moles/Vol] 12 mmol/L Normal 6-16 [facility] Comment on above: Performed By: #### 2 [id number] #### [facility] [address] [place] [address] AST [Catalytic activity/Vol] 46 Int._Unit/L High 5-43 [facility] Comment on above: Performed By: #### 2 [id number] #### [facility] [address] [place] [address] Bilirubin [Mass/Vol] 0.7 mg/dL Normal 0.0-1.1 [facility] Comment on above: Performed By: #### 2 [id number] #### [facility] [address] [place] [address] Calcium [Mass/Vol] 9.3 mg/dL Normal 8.9-11.1 [facility] Comment on above: Performed By: #### 2 [id number] #### [facility] [address] [place] [address] Chloride [Moles/Vol] 99 mmol/L Low 101-111 [facility] Comment on above: Performed By: #### 2 [id number] #### [facility] [address] [place] [address] CO2 [Moles/Vol] 29 mmol/L Normal 21-31 [facility] Comment on above: Performed By: #### 2 [id number] #### [facility] [address] [place] [address] Creatinine [Mass/Vol] 0.7 mg/dL Normal 0.5-1.3 [facility] Comment on above: Performed By: #### 2 [id number] #### [facility] [address] [place] [address] Globulin (S) [Mass/Vol] 3.5 g/dL Normal 1.4-4.0 [facility] Comment on above: Performed By: #### 2 [id number] #### [facility] [address] [place] [address] Glucose [Mass/Vol] 133 mg/dL Normal 55-199 [facility] Comment on above: Performed By: #### 2 [id number] #### [facility] [address] [place] [address] Potassium [Moles/Vol] 3.6 mmol/L Normal 3.5-5.3 [facility] Comment on above: Performed By: #### 2 [id number] #### [facility] [address] [place] [address] Protein [Mass/Vol] 8.0 g/dL High 6.0-7.8 [facility] Comment on above: Performed By: #### 2 [id number] #### [facility] [address] [place] [address] Sodium [Moles/Vol] 136 mmol/L Normal 135-145 [facility] Comment on above: Performed By: #### 2 [id number] #### [facility] [address] [place] [address] Urea nitrogen [Mass/Vol] 4 mg/dL Low 5-21 [facility] Comment on above: Performed By: #### 2 [id number] #### [facility] [address] [place] [address] Urea nitrogen/Creatinine [Mass ratio] 6 No Units Low 10-20 [facility] Comment on above: Performed By: #### 2 [id number] #### [facility] [address] [place] [address] CRPon 08-07-2024 CRP [Mass/Vol] 0.2 mg/dL Normal <=1.9 [facility] Comment on above: Performed By: #### 2 [id number] #### [facility] [address] [place] [address] Ferritinon 08-07-2024 Ferritin [Mass/Vol] 175 ng/mL Normal 24-336 [facility] Comment on above: Performed By: #### 2 [id number] #### [facility] [address] [place] [address] Folateon 08-07-2024 Folate [Mass/Vol] 18.9 ng/mL Normal >=6.7 [facility] Comment on above: Performed By: #### 2 [id number] #### [facility] [address] [place] [address] HEMATOLOGYOrdered By: SYSTEM SYSTEM on 08-07-2024 Basophils/100 [...] 08-07-2024 Iron [Mass/Vol] 210 microgram/dL High 35-153 [facility] Comment on above: Performed By: #### 2 [id number] #### [facility] [address] [place] [address] Lab Miscellaneous-LCon 08-07 Test Code 084640 Invalid Interpretation Code [facility] Comment on above: Performed By: #### 1 [id number] #### [facility] [address] [place] [address] Test Name TPMT genotyping Invalid Interpretation Code [facility] Comment on above: Performed By: #### 1 [id number] #### [facility] [address] [place] [address] Lipid Panelon 08-07-2024 Cholesterol [Mass/Vol] 157 mg/dL Normal 120-200 [facility] Comment on above: Performed By: #### 2 [id number] #### [facility] [address] [place] [address] Cholesterol in HDL [Mass/Vol] 90 mg/dL Invalid Interpretation Code [facility] Comment on above: Result Comment: '>= 60 LOW RISK' '<= 40 HIGH RISK' Performed By: #### 2 [id number] #### [facility] [address] [place] [address] Cholesterol in LDL [Mass/Vol] 48 mg/dL Normal <=129 [facility] Comment on above: Performed By: #### 2 [id number] #### [facility] [address] [place] [address] Cholesterol in VLDL [Mass/Vol] 37 mg/dL Normal 7-40 [facility] Comment on above: Performed By: #### 2 [id number] #### [facility] [address] [place] [address] Triglyceride [Mass/Vol] 186 mg/dL High <=149 [facility] Comment on above: Performed By: #### 2 [id number] #### [facility] [address] [place] [address] Reference Laboratory Testing Ordered By: Chitra Krishnamurthy on 08-07-2024 Test Code 347061 1 Invalid Interpretation Code [facility] Test Name TPMT genotyping Invalid Interpretation Code [facility] TIBC Calculatedon 08-07-2024 Iron binding capacity [Mass/Vol] 305 microgram/dL Normal 250-400 [facility] Comment on above: Performed By: #### 1 [id number] #### [facility] [address] [place] [address] Transferrin [Mass/Vol] 218 mg/dL Normal 200-370 [facility] Comment on above: Performed By: #### 1 [id number] #### [facility] [address] [place] [address] Vit B12on 08-07-2024 Cobalamin (Vitamin B12) [Mass/Vol] 368 pg/mL Normal 50-1500 [facility] Comment on above: Performed By: #### 2 [id number] #### [facility] [address] [place] [address] Vitamin D 25 Hydroxyon 08-07 25-hydroxyvitamin D3 [Mass/Vol] 37.4 ng/mL Normal 30.0-100.0 [facility] Comment on above: Performed By: #### 5 [id number] #### [facility] [address] [place] [address] eGFRon 08-07-2024 eGFR 112 mL/min/1.73 m2 Normal >=59 [facility] Comment on above: Performed By: #### 1 [id number] #### [facility] [address] [place] [address] Gastroenterology Office/Clin ic Noteon 05-13-2024 Gastroenterology Office/Clinic [...] Known A (more content not included)... Normal [facility] Comment on above: Result Comment: Elec tronically Signed By: Renata ARRIETA, Juma Mcadams\.br\Date and Time Signed: 05/13/24 09:18 EDT Ambulatory Visit Summaryon 0 04-10-2024 Ambulatory Visit Summary Ambulatory Visit Summary GRACIELA SEVERINO :1975 Visit Date:01/18/2021 Ambulatory Visit Instructions Your Diagnosis Acid reflux Your Care Team Primary Care Physician - Maycol ARRIETA, Jaquan Marcelino This Is Your Medications List famotidine [...] large intestine, Print Label By Order Location, [id number] Lipid Panel, Blood, Routine collect, 04/10/24, Order [...] 2 Cap (more content not included)... Normal [facility] Provider Letteron 04-10-2024 Provider Letter Provider Letter April 10, 2024 GRACIELA SEVERINO [address] [place] [id number] : 1975 To Whom It May Concern, Please excuse above student from work. Date of Absence: From: _ To: _ Appointment Time In: _ Time Left Office: _ Restrictions: _ Comments: _ Sincerely, [facility] Normal [facility] Surgical Pathology Reporton 03-25-2024 Surgical Pathology Report [facility] [place] [address]- Surgical Pathology Report Collected Date/Time: 03/23/2024 09:18 [...] is entirely submitted in one cassette. (DC) DC:[facility] Microscopic Description A-E: Microscopic examination performed unless gross only specified. Normal [facility] Comment on above: Performed By: #### 4 [id number] #### [facility] [address] [place] [address] Main OR Intraoperative Recor don 03-24-2024 Main OR Intraoperative Record Main OR Intraoperative Record IntraOp Document Type FT Summary Primary Physician: Juma Yanez MD Finalized Date/Time: 03/24/24 11:55:57 Pt. Name: GRACIELA SEVERINO/Sex: 1975 Male Med Rec #: [id number] Physician: Juma Yanez MD Financial #: [id number] Pt. Type: O Room/Bed: / Admit/Disch: 03/23/24 07:57:35 - 03/23/24 23:59:59 Institution: Case Times FT Entry 1 Patient Times In Room 03/23/24 09:09:00 Out Room 03/23/24 09:32:00 Procedure Times Start 03/23/24 09:14:00 Stop 03/23/24 09:30:00 Anesthesia Times Start 03/23/24 09:09:00 Stop 03/23/24 09:32:00 Time at [facility] 03/23/24 09:16:00 Last Modified By: Dinh Gonzalez RN 03/23/24 09:32:18 General Comments: 03/24/24 Chart opened to review and send charges [facility] CSFA Case Attendance FT Entry 1 Entry 2 Entry 3 Case Attendee Kerline PAPPAS, TANBARK PEELER, Queen Carlos NORWOOD, Oksana Santana Role Performed TANBARK PEELER Surface Hydrologist - Primary Staff - Other Time In 03/23/24 09:09:00 03/23/24 09:09:00 03/23/24 09:19:00 Time Out 03/23/24 09:32:00 03/23/24 09:32:00 03/23/24 09:32:00 Procedure COLONOSCOPY(.) COLONOSCOPY(.) COLONOSCOPY(.) Comments Dr. Conn supervising case Last Modified By: Carlos NORWOOD, Dinh Gonzalez RN, Dinh Cheung RN 03/23/24 09:32:19 03/23/24 09:32:19 03/23/24 09:32:19 Entry [...] Time Out Dinh Gonzalez RN, Given Participants Juma Yanez MD, Kerline PAPPAS, RUSLAN, Graham Last Micala E Time Out Complete [...] rectal biopsy Primary Procedure Yes Primary Surgeon Juma Yanez MD Start 03/23/24 09:14:00 Stop 03/23/24 09:30:00 Anesthesia [...] a res (more content not included)... Normal [facility] Discharge Instructionson Discharge Instructions Discharge Instructions GRACIELA SEVERINO :1975 Visit Date:03/23/2024 Inpatient Discharge Instructions Your Care Team Admitting Physician - Juma Yanez MD Referring Physician - Juma Yanez MD Reason for Your Visit SMALL & LARGE [...] When: Comments: Call for any problems. Where: [address] [place], [place] [address], [address] [place] [phone] Business (1) Medications What How Much When [...] signs: B (more content not included)... Normal [facility] Comment on above: Result Comment: Elec tronically Signed By: Efren NORWOOD, Zoe\.br\Date and Time Signed: 03/23/24 09:44 EDT Main OR PACU I Recordon 02-24 Main OR PACU I Record Main OR PACU I Record PACU Phase I Document Type FT Summary Primary Physician: Juma Yanez MD Finalized Date/Time: 03/23/24 10:19:43 Pt. Name: MAYCOL GRACIELA Garcia/Sex: 1975 Male Med Rec #: [id number] Physician: Juma Yanez MD Financial #: [id number] Pt. Type: O Room/Bed: / Admit/Disch: 03/23/24 [...] By: Zoe Schwartz RN 03/23/24 10:19 Normal [facility] Main OR Preoperative Recordo n 03-23-2024 Main OR Preoperative Record Main OR Preoperative Record Holding Area Document Type FT Summary Primary Physician: Juma Yanez MD Finalized Date/Time: 03/23/24 08:09:43 Pt. Name: SEVERINOGRACIELA D.O.B./Sex: 1975 Male Med Rec #: [id number] Physician: Juma Yanez MD Financial #: [id number] Pt. Type: O Room/Bed: / Admit/Disch: 03/23/24 [...] By: Dinh Gonzalez RN 03/23/24 08:09 Normal [facility] CT Abdomen/Pelvis w/contrast (enterography)on 03-17-2024 CT [...] Signed by: Renard Guzman DO Transcribed by: DP Technologist: DPR Technical Comments GFR (mL/min/1/73m2) age Contrast: Isovue 300 Contrast amount in ml's: 100 Oral contrast amount in ml's: 1350 Normal [facility] Ambulatory Visit Summaryon 0 02-28-2024 Ambulatory Visit Summary Ambulatory Visit Summary GRACIELA SEVERINO :1975 Visit Date:02/28/2024 Ambulatory Visit Instructions Your Diagnosis Crohn's disease of both small and large intestine Acid reflux Colon polyp Loose stools Your Care Team Attending Physician - Juma Yanez MD Primary Care Physician - Jaquan Severino MD This Is Your Medications List Contact prescribing [...] Follow-Up Appointments Saturday 8:00 AM EDT Where: [facility] You Need to Complete the Following C-Reactive Protein, Blood, Routine collect, 02/28/24, Order for future visit, Lab Collect, Crohn's disease of both small and large intestine Invalid Interpretation Code Colon polyp [facility] Gastroenterology Office/Clin ic Noteon 02-28-2024 Gastroenterology [...] and vitam (more content not included)... Normal [facility] Comment on above: Result Comment: Elec tronically Signed By: Renata ARRIETA, Juma Mcadams\.br\Date and Time Signed: 02/28/24 08:33 EDT Provider Letteron 02-04-2024 Provider Letter (Inserted Image. Rut ble to display) February 04, 2024 GRACIELA SEVERINO [address] [place] [id number] : 1975 Dear Graciela, We have been [...] your prompt attention to this matter. Sincerely, [facility] [phone] Normal [facility] Vital Signs Date Time Vital Sign Value Performing Clinician Facility 09-16-2024 09:03-0500 Body height 185.4 cm Yohana Sewell MD Work Phone: [facility] 09-16-2024 09:03-0500 Body mass index (BMI) [Ratio] 22.82 kg/m2 Yohana Sewell MD Work Phone: [facility] 09-16-2024 09:03-0500 Body weight 78.47 kg Yohana Sewell MD Work Phone: [facility] 08-14-2024 08:18-0500 Diastolic blood pressure 103 mm[Hg] Mohamad Mouchli [facility] 08-14-2024 08:18-0500 Mean blood pressure 122 mm[Hg] Mohamad Mouchli [facility] 08-14-2024 08:18-0500 Systolic blood pressure 160 mm[Hg] Mohamad Mouchli [facility] 08-14-2024 08:14-0500 Blood Pressure Location Mohamad Mouchli [facility] 08-14-2024 08:14-0500 Diastolic blood pressure 102 mm[Hg] Mohamad Mouchli [facility] 08-14-2024 08:14-0500 Heart rate 85 /min Mohamad Mouchli [facility] 08-14-2024 08:14-0500 Systolic blood pressure 158 mm[Hg] Mohamad Mouchli [facility] 04-10-2024 08:18-0400 Diastolic blood pressure 84 mm[Hg] Mohamad Mouchli [facility] 04-10-2024 08:18-0400 Mean blood pressure 98 mm[Hg] Mohamad Mouchli [facility] 04-10-2024 08:18-0400 Systolic blood pressure 125 mm[Hg] Mohamad Mouchli [facility] 04-10-2024 08:00-0400 Blood Pressure Location Mohamad Mouchli [facility] 04-10-2024 08:00-0400 Diastolic blood pressure 90 mm[Hg] Mohamad Mouchli [facility] 04-10-2024 08:00-0400 Heart rate 89 /min Mohamad Mouchli [facility] 04-10-2024 08:00-0400 Systolic blood pressure 135 mm[Hg] Mohamad Mouchli [facility] 03-23-2024 09:55-0400 Blood Pressure Location Mohamad Mouchli [facility] 03-23-2024 09:55-0400 Diastolic blood pressure 80 mm[Hg] Mohamad Mouchli [facility] 03-23-2024 09:55-0400 Heart rate 90 /min Mohamad Mouchli [facility] 03-23-2024 09:55-0400 Mean blood pressure 93 mm[Hg] Mohamad Mouchli [facility] 03-23-2024 09:55-0400 Respiratory rate 17 /min Mohamad Mouchli [facility] 03-23-2024 09:55-0400 SaO2% (BldA) [Mass fraction] 99 % Mohamad Mouchli [facility] 03-23-2024 09:55-0400 Systolic blood pressure 118 mm[Hg] Mohamad Mouchli [facility] 03-23-2024 09:45-0400 Blood Pressure Location Mohamad Mouchli [facility] 03-23-2024 09:45-0400 Diastolic blood pressure 80 mm[Hg] Mohamad Mouchli [facility] 03-23-2024 09:45-0400 Heart rate 95 /min Mohamad Mouchli [facility] 03-23-2024 09:45-0400 Mean blood pressure 92 mm[Hg] Mohamad Mouchli [facility] 03-23-2024 09:45-0400 Respiratory rate 15 /min Mohamad Mouchli [facility] 03-23-2024 09:45-0400 SaO2% (BldA) [Mass fraction] 97 % Mohamad Mouchli [facility] 03-23-2024 09:45-0400 Systolic blood pressure 116 mm[Hg] Mohamad Mouchli [facility] 03-23-2024 09:40-0400 Blood Pressure Location Mohamad Mouchli [facility] 03-23-2024 09:40-0400 Diastolic blood pressure 63 mm[Hg] Mohamad Mouchli [facility] 03-23-2024 09:40-0400 Heart rate 89 /min Mohamad Mouchli [facility] 03-23-2024 09:40-0400 Mean blood pressure 75 mm[Hg] Mohamad Mouchli [facility] 03-23-2024 09:40-0400 Respiratory rate 19 /min Mohamad Mouchli [facility] 03-23-2024 09:40-0400 SaO2% (BldA) [Mass fraction] 95 % Mohamad Mouchli [facility] 03-23-2024 09:40-0400 Systolic blood pressure 98 mm[Hg] Mohamad Mouchli [facility] 03-23-2024 09:33-0400 Body temperature 98.06 [degF] Mohamad Mouchli [facility] 03-23-2024 09:30-0400 Respiratory rate 18 /min Mohamad Mouchli [facility] 03-23-2024 09:25-0400 Respiratory rate 18 /min Mohamad Mouchli [facility] 03-23-2024 09:20-0400 Respiratory rate 18 /min Mohamad Mouchli [facility] 03-23-2024 08:16-0400 Body temperature 98.78 [degF] Mohamad Mouchli [facility] 02-28-2024 08:07-0400 Diastolic blood pressure 91 mm[Hg] Mohamad Mouchli [facility] 02-28-2024 08:07-0400 Mean blood pressure 109 mm[Hg] Mohamad Mouchli [facility] 02-28-2024 08:07-0400 Systolic blood pressure 144 mm[Hg] Mohamad Mouchli [facility] 02-28-2024 08:03-0400 Blood Pressure Location Mohamad Mouchli [facility] 02-28-2024 08:03-0400 Diastolic blood pressure 95 mm[Hg] Mohamad Mouchli [facility] 02-28-2024 08:03-0400 Systolic blood pressure 148 mm[Hg] Mohamad Mouchli [facility] 02-21-2024 08:41-0400 Diastolic blood pressure 105 mm[Hg] Olivas Sarmini [facility] 02-21-2024 08:41-0400 Mean blood pressure 124 mm[Hg] Olivas Sarmini [facility] 02-21-2024 08:41-0400 Systolic blood pressure 163 mm[Hg] Olivas Sarmini [facility] 02-21-2024 08:37-0400 Blood Pressure Location Olivas Sarmini [facility] 02-21-2024 08:37-0400 Diastolic blood pressure 106 mm[Hg] Olivas Sarmini [facility] 02-21-2024 08:37-0400 Heart rate 56 /min Olivas Sarmini [facility] 02-21-2024 08:37-0400 Respiratory rate 16 /min Olivas Sarmini [facility] 02-21-2024 08:37-0400 Systolic blood pressure 164 mm[Hg] Olivas Sarmini [facility] 12-20-2022 13:33-0400 Blood Pressure Location Ortiz SALAM [facility] 12-20-2022 13:33-0400 Diastolic blood pressure 86 mm[Hg] Ortiz SALAM [facility] 12-20-2022 13:33-0400 Heart rate 78 /min Ortiz SALAM [facility] 12-20-2022 13:33-0400 Respiratory rate 16 /min Ortiz SALAM [facility] 12-20-2022 13:33-0400 Systolic blood pressure 122 mm[Hg] Ortiz SALAM [facility] Encounters Encounter Date Encounter Type Care Provider Facility Start: 11-06-2024 ambulatory Juma Calvin lity:[facility] Start: 10-15-2024 End: 10-15-2024 Bamboo flowsheet Anna A Felter [employer] Work Phone: [facility] Start: 10-15-2024 End: 10-15-2024 Bamboo flowsheet Anna A Felter [employer] Work Phone: [facility] Start: 10-15-2024 End: 10-15-2024 Patient encounter procedure Gomez Sebastian DO Work Phone: [facility] Comment on above: Lumbar radiculopathy (Primary Dx) Start: 10-15-2024 End: 10-15-2024 ambulatory GOMEZ SEBASTIAN Not Available Start: 10-15-2024 End: 10-15-2024 Office outpatient visit 15 minutes Anna A Felter [employer] Work Phone: [facility] Comment on above: Other atopic dermati tis Start: 10-15-2024 End: 10-15-2024 ambulatory ANNA A FELTER Not Available Start: 10-14-2024 End: 10-14-2024 Clinisync Result Encounter Generic External Data Provider [facility] External Department Unsolicited Start: 10-14-2024 End: 10-14-2024 Clinisync Result Encounter Generic External Data Provider [facility] External Department Unsolicited Start: 09-17-2024 End: 09-17-2024 Office outpatient visit 15 minutes Anna A Felter [employer] Work Phone: [facility] Comment on above: Other atopic dermati tis Start: 09-17-2024 End: 09-17-2024 ambulatory ANNA A FELTER Not Available Start: 09-16-2024 End: 09-16-2024 Bamboo flowslaura Sewell MD Work Phone: [facility] Start: 09-16-2024 End: 09-16-2024 Bamboo flowslaura Sewell MD Work Phone: [facility] Start: 09-16-2024 End: 09-16-2024 Office outpatient new 30 minutes Yohana Sewell MD Work Phone: [facility] Comment on above: Other atopic dermati tis Start: 09-16-2024 End: 09-16-2024 ambulatory YOHANA SEWELL Not Available Start: 08-14-2024 End: 08-14-2024 ambulatory Juma Yanez Facility:[facility] Start: 08-14-2024 End: 08-14-2024 Patient encounter procedure Juma Yanez [facility] Start: 08-12-2024 End: 08-12-2024 Bamboo flowsheet Anna A Felter [employer] Work Phone: [facility] Start: 08-12-2024 End: 08-12-2024 Bamboo flowsheet Anna A Felter [employer] Work Phone: [facility] Start: 08-12-2024 End: 08-12-2024 Telephone encounter Anna A Felter [employer] Work Phone: [facility] Start: 08-12-2024 End: 08-12-2024 Office outpatient visit 25 minutes Anna A Felter [employer] Work Phone: [facility] Comment on above: Other atopic dermati tis Start: 08-12-2024 End: 08-12-2024 ambulatory ANNA CARR Not Available Start: 08-07-2024 End: 08-07-2024 ambulatory Juma Thompsonli Facility[place] Start: 08-07-2024 End: 08-07-2024 Patient encounter procedure Juma Yanez [facility] Start: 04-21-2024 End: 04-21-2024 Refill Margaret Guevara MD Work Phone: [facility] Comment on above: Gastroesophageal ref lux disease, unspecified whether esophagitis present Start: 04-10-2024 End: 04-10-2024 ambulatory Juma Yanez [facility] Start: 04-10-2024 End: 04-10-2024 Patient encounter procedure Juma Win. Renata [facility] Start: 03-23-2024 End: 03-23-2024 ambulatory Juma Win. Renata Facility[place] Start: 03-23-2024 End: 03-23-2024 Patient encounter procedure Juma Yanez [facility] Start: 03-13-2024 End: 03-13-2024 ambulatory Olenad A. Donnali Facility:[facility] Start: 03-13-2024 End: 03-13-2024 Patient encounter procedure Olenad A. Donnali [facility] Start: 03-02-2024 ambulatory Deisy Dunaway [facility] Start: 02-28-2024 End: 02-28-2024 ambulatory Olenad Quirino. Renata Facility:[facility] Start: 02-28-2024 End: 02-28-2024 Patient encounter procedure Juma Yanez [facility] Start: 02-21-2024 End: 02-21-2024 ambulatory Deisy Salcidoi Facility:[facility] Start: 02-21-2024 End: 02-21-2024 Patient encounter procedure Deisy Dalalmini [facility] Start: 01-27-2024 End: 01-27-2024 ambulatory RAQUEL VOSSI Not Available Start: 01-17-2024 End: 01-17-2024 ambulatory ANNA LORENZOER Not Available Start: 12-20-2022 End: 12-20-2022 Patient encounter procedure Angel SMITH [facility] Start: 01-12-2022 End: 01-12-2022 Patient encounter procedure Amanda Quirino Houser [facility] Start: 12-26-2021 End: 12-26-2021 Lab Drop off Angel SMITH [facility] Start: 12-18-2021 End: 12-18-2021 Patient encounter procedure Ortiz SALAM [facility] Start: 11-14-2020 End: 03-30-[address] NONE LISTED REQUEST Facility: Procedures Date Procedure Procedure Detail Performing Clinician Start: 10-15-2024 End: 10-15-2024 Needle emg ea extremty w/paraspinl area complete Gomez Sebastian DO Work Phone: Start: 10-14-2024 MR LUMBAR SPINE WO CON Generic External Data Provider Start: 03-23-2024 Colonoscopy Anna lópez SUBSTATION DESIGN DRAFTSPERSON-SECOND CUTTER Work Phone: Start: 03-23-2024 Colonoscopy Juma Bates manuel Start: 03-28-2021 Colonoscopy Margaret arizmendi MD Work Phone: Start: 03-28-2021 Colonoscopy Angel VICTOR MANUEL M Comment on above: biopsies, terminal i leitis inflammation with ulcers, transverse colon erosions, and descending erosions, polyp x1 Start: 01-17-2021 Colsc flx w/rmvl of tumor polyp lesion snare tq Ortizminerva SMITH Start: 01-17-2021 Endoscopy and biopsy of upper gastrointestinal tract Ortiz CHRISTINAAM Knee region structur e (body structure) Ortiz CorporamaAM Oral Ortizminerva VASQUEZAM Tonsillectomy and adenoidectomy Ortiz SALAM Plan of Treatment Date Care Activity Detail Author Start: 03-23-2034 Screening for malign ant neoplasm of colon [facility] Start: 03-28-2031 Screening for malign ant neoplasm of colon [facility] Start: 10-19-2025 End: 10-19-2025 Patient encounter procedure 10/19/2025 8:30 AM EST Office Visit [facility] [address] [place] [address] Anna Carr, SUBSTATION DESIGN DRAFTSPERSON-SECOND CUTTER [address] [place] [address] [facility] Start: 10-15-2024 End: 10-15-2024 Patient encounter procedure [facility] Comment on above: Arrived Start: 09-17-2024 End: 09-17-2024 Patient encounter procedure 09/17/2024 8:30 AM EST Office Visit [facility] [address] [place] [address] Anna Carr, SUBSTATION DESIGN DRAFTSPERSON[employer]SE[employer]D CUTTER [address] [place] [address] [facility] Start: 09-16-2024 End: 09-16-2024 Patient encounter procedure [facility] Comment on above: Other atopic dermati tis Start: 09-03-2024 End: 09-03-2024 Patient encounter procedure 09/03/2024 8:40 AM EST Office Visit [facility] [address] [place] [phone] Anna Carr, SUB[employer]ATION DESIGN DRAFTSPERSON[employer]SECOND CUTTER [address] [place] [address] [facility] Start: 08-12-2024 End: 08-12-2024 Patient encounter procedure 08/12/2024 8:30 AM EST Office Visit [facility] [address] [place] [address] Anna Carr, SUBSTATION DESIGN DRAFTSPERSON[employer]SECOND CUTTER [address] [place] [address] Arrived [facility] Comment on above: Arrived Start: 04-26-2024 Influenza vaccination Influenza Vacc ine (#1) [facility] Start: 1975 Screening for malign ant neoplasm of colon [facility] Aerobic culture Aerobic culture Microbiology Timed Other atopic dermatitis Release Upon Ordering for 1 Occurrences starting 08/12/2024 [facility] Work Phone: Comment on above: Release Upon Orderin g for 1 Occurrences starting 08/12/2024 Immunizations Immunization Date Immunization Notes Care Provider Fa cility 12-06-2020 SARS-CoV-2 (COVID-19 ) mRNA BNT-162b2 [employer] [facility] 11-14-2020 SARS-CoV-2 (COVID-19 ) mRNA BNT-162b2 vax [employer] [facility] NEGATED: Highlighted row has not occurred!08-14-2024 influenza virus vaccine, unspecified formulation Juma Yanez [facility] NEGATED: Highlighted row has not occurred!04-10-2024 influenza virus vaccine, unspecified formulation Juma Yanez [facility] NEGATED: Highlighted row has not occurred!10-30-2021 influenza virus vaccine, unspecified formulation Angel SMITH [facility] Payers Date Payer Category Payer Blue [employer] Blue [employer] BCBS [id number] 2022 Unknown [facility] BCBS xxxxxx [id number] 2022-Present [phone] [id number] [place], [place] [address] [id number] 2022 Unknown [id number] 1974 Unknown [id number] 2.16.840.1.259222.3.579. 2.727 1974 Unknown 1992 2.16.840.1.371672.3.579. 2.727 1974 Unknown [id number] 2.16.840.1.675017.3.579. 2.727 1974 Unknown [id number] 2.16.840.1.627638.3.579. 2. 1974 Unknown [id number] 2.16.840.1.248761.3.579. 2. 1974 Unknown [id number] 2.16.840.1.985038.3.579. 2. 1974 Unknown [id number] 2.16.840.1.687763.3.579. 2. 1974 Unknown [id number] 2.16840.1.806652.3.579. 2. 1974 Unknown [id number] 2.16840.1.271867.3.579. 2. 1974 Unknown [id number] 2.840.1.602862.3.579. 2. 1974 Unknown [id number] 2.16840.1.436621.3.579. 2. 1974 Unknown [id number] 2.840.1.232374.3.579. 2.1258 1974 Unknown [id number] 2.16840.1.897260.3.579. 2.1258 1974 Unknown [id number] 840.1.775937.3.579. 2.1258 1974 Unknown [id number] .16.840.1.229953.3.579. 2.1258 1974 Unknown [id number] 2.16.840.1.419254.3.579. 2.1258 1974 Unknown [id number] 2.16.840.1.893610.3.579. 2.1258 1974 Unknown [id number] 2.16.840.1.798336.3.579. 2.1258 1974 Unknown [id number] 2.16.840.1.914251.3.579. 2.1259 1959 Self-pay Unknown [id number] 2.16.840.1.382949.3.579. 2.593 Social History Date Type Detail Facility Start: 10-30-2021 End: 08-14-2024 Tobacco smoking status Light tobacco smoker (finding) [facility] Tobacco smoking status Never [facility] Start: 02-21-2024 End: 10-15-2024 Sex Assigned At Male [facility] Start: 08-26-2009 Tobacco smoking stat [facility] Smokes tobacco daily [facility] Start: 08-26-2009 History of tobacco use Cigarette Smo ker [facility] Start: 06-14-2023 End: 10-15-2024 Cigarettes smoked current (pack per day) - Reported 0.5 [facility] Start: 06-14-2023 Tobacco use and exposure Smokeless tobacco non-user [facility] Start: 02-21-2024 End: 10-15-2024 Alcoholic beverage intake Current drinker of alcohol (finding) [facility] Start: 06-14-2023 Alcohol Comment 10 or more dri nks on a typical day/ 4 or more times a week. [facility] Start: 1975 Sex assigned at Not on file [facility] Functional Status Date Assessment Result Facility 08-14-2024 Functional Status N/A [facility] 04-10-2024 Functional Status N/A [facility] 03-23-2024 Functional Status N/A [facility] 02-28-2024 Functional Status N/A [facility] 02-21-2024 Functional Status N/A [facility] 12-20-2022 Functional Status N/A [facility] Clinical Notes 10-30-2021 to 10-15-2024 Gomez Sebastian DO - 10/15/2024 11:00 AM ESTNatalie EUGENE Shannon - 10/15/2024 9:10 AM ESTNataliEUGENE Gipson - 09/17/2024 8:30 AM Geeta Sewell MD - 09/16/2024 9:00 AM EST Note Date & Type Note Facility 10-15-2024 History of Presen t illness Narrative Images from the original note were not included. Reason for Appointment: EMG Patient: Graciela Severino : 1975 EMG Computer: [employer] Referring Physician: Ruth Love PA-C EMG: RLE transmission repairer: Mikael HEBERT(R) Office Location: [place] Reason for EMG: c/o numbness/tingling in right foot, drop foot on right. No hx of DM. Not on blood thinners. Comments: Procedure was explained to the patient who expressed understanding. Patient appeared to have tolerated the test well despite some discomfort due to the nature of the test. Patient has an appointment with Neurosurgery tomorrow on 10/16/2024 in [place] and was given a copy of the report to bring to that appointment. documented in this encounter [facility] 10-15-2024 History of Presen t illness Narrative Images from the original note were not included. Follow up Diagnosis: Atopic Dermatitis Location: Feet Last visit: 4 weeks Symptoms: Peeling is almost gone Status: Improved Treatments tried and failed: Betamethasone Dipro 0.05% cream, protopic ointment, prednisone 40 mg, benadryl cream Current treatment: Vtama-received a few weeks ago, he states that this has been helping. Benadryl cream-has not had to use All pertinent medical history, medications, and allergies were reviewed. General Exam: alert, oriented to person, place, and time, normal affect, well appearing Unaccompanied A focused exam completed based on patient reported problems, see below: 1. Other atopic dermatitis Left Middle Plantar Surface, Right Middle Plantar Surface Scaly erythematous plaques +/- dyspigmentation, lichenification, excoriations. Improvement from last visit, not yet at treatment goal. Discussed that atopic dermatitis is a chronic condition that can be controlled but not cured. Continue Vtama cream. Recommend patient use CeraVe or Aquaphor at night to help with scaling. Notify office if worsening despite treatment. Follow up in 1 year. Related Medications diphenhydrAMINE-zinc acetate (Benadryl Extra Strength) cream Apply topically 4 (four) times a day as needed for itching Next Visit: 1 year atopic derm documented in this encounter [facility] 09-17-2024 History of Presen t illness Narrative Follow up Diagnosis: Atopic Dermatitis Location: Feet Last visit: 3 weeks Symptoms: still peeling and breaking out Status: No change Treatments tried and failed: Betamethasone Dipro 0.05% cream, protopic ointment Current treatment: Was prescribed Prednisone 40 mg x 7 days then 20 mg x 7 day, benadryl and referral to Nuclear Medicine Officer (seen on 09/16/23) recommended doing patch testing [...] Visit: 3-4 weeks documented in this encounter [facility] 09-16-2024 History of Presen t illness Narrative Graciela Severino is a very pleasant 49 y.o. year [...] past 18 months. 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 [...] of performing patch testing with the [place] contact dermatitis panel and agreed to pursue [...] the home environment. documented in this encounter [facility] 08-12-2024 Telephone encount er Note Please inform patient that I sent in Benadryl cream to use for itching [facility] 08-12-2024 Miscellaneous Notes Formattin g of this note might be different from the original. Please inform patient that I sent in Benadryl cream to use for itching documented in this encounter [facility] 08-12-2024 History of Presen t illness Narrative [...] Asprin while taking medication. Referral sent to Nuclear Medicine Officer. Follow up in 3 weeks. Specimen 1 - Aerobic culture Account Name: [place] NPI: Anna Carr [id number] Related Procedures Ambulatory referral to Allergy Related Medications predniSONE (Deltasone) 20 MG tablet 2 tablets for 7 days and then 1 tablet for 7 days diphenhydrAMINE-zinc acetate (Benadryl Extra Strength) cream Apply topically 4 (four) times a day as needed for itching Next Visit: 3 weeks, follow up documented in this encounter [facility] 04-21-2024 Telephone encount er Note completed [facility] 04-21-2024 Miscellaneous Notes Formattin g of this note might be different from the original. completed documented in this encounter [facility] 03-23-2024 Evaluation + Plan note Extrac milton from: Title:FATIMAHS Post-operative Note---General Author: Tony Conn MD Date:03/23/24 Plan Transfer/Discharge: Transfer/Discharge Discharge when meets criteria ( To home ). Extracted from: Title:SHUKRI Pre-operative Note 2022 Author:Tony Titus Date:03/23/24 Plan [place] [employer] of Anesthesiologists (ASA) physical status classification: Class II. Anesthetic Preoperative Plan: Anesthesia General. Future Scheduled Tests Laboratory* Calprotectin, Fecal 02/28/24 * Vitamin D 25 Hydroxy 02/28/24 * CBC w/ Auto Diff 02/28/24 * Comprehensive Metabolic Panel 02/28/24 * C-Reactive Protein 02/28/24 [facility] 07-29-2024 Hospital Discharge instructions Patient Education 03/23/2024 09:43:40 Colonoscopy, Care After Surgery Salam (CUSTOM) Colonoscopy Care After Surgery Please read the instructions outlined below and refer to this sheet in the next few weeks. These discharge instructions provide you with general information on caring for [facility] Your doctor may also give you specific [...] Up Care 02/28/2024 08:46:54 With:Juma Yanez Address: [address] [place], [place] [address]dict Melanie, [address] [place] [address] [phone] Business (1) When: Unknown Comments:Call for any problems. [facility] 07-29-2024 NoteProgress Note-Physician Patient: GRACIELA SEVERINO Age: 49 years Sex: Male : 1975 Associated Diagnoses: None Author: Tony Conn MD Postoperative Information Postoperative disposition: Postoperative disposition: To PACU. Optimetrix number: Optimetrix number [id number]. Anesthetic utilized: General. Health Status Allergies: Allergic Reactions (Selected) No Known Allergies Physical Examination VS/Measurements Pain Assessment: Controlled. General: Awake, Appropriate. Respiratory: Adequate air exchange. Cardiovascular: Stable. Neurological Assessment Anesthetic outcome No anesthetic complications noted. Adequate pain relief. Review / Management Condition: Stable. Plan Transfer/Discharge: Transfer/Discharge Discharge when meets criteria ( To home ).[facility]:Result Comment: Electronically Signed By: [...] is severe or gets worse throughout the day.[facility] NoteColonoscopy Procedure Report Patient: GRACIELA SEVERINO Age: 49 years Sex: Male : 1975 Associated Diagnoses: None Author: Juma Yanez MD Pre-Procedure Procedure Date 03/23/2024 09:33:00 . Procedure Type: Colonoscopy with biopsy. Procedure provider Performed by Juma Yanez MD. Current history and physical Documented on chart. Colonoscopy ([id number]) on 03/28/2021 at 46 Years. Comments: 03/28/2021 11:00 Raven Severino RN biopsies, terminal ileitis inflammation with ulcers, transverse colon erosions, and descending erosions, polyp x1 Esophagogastroduodenoscopy and biopsy ([id number]) on 01/17/2021 at 45 Years. Colonoscopy, flexible; with removal of tumor(s), polyp(s), or other lesion(s) by snare technique ([id number]) on 01/17/2021 at 45 Years. Knee ([id number]). Tonsillectomy and adenoidectomy (393572660). Oral ([id number]).. Past Medical History No active or resolved past medical history items have been selected or recorded.. Family History Entire family history is negative.. Procedure History Colonoscopy ([id number]) on 03/28/2021 at 46 Years. Comments: 03/28/2021 11:00 EDT - Korey NORWOOD, Raven biopsies, terminal ileitis inflammation with ulcers, transverse colon erosions, and descending erosions, polyp x1 Esophagogastroduodenoscopy and biopsy ([id number]) on 01/17/2021 at 45 Years. Colonoscopy, flexible; with removal of tumor(s), polyp(s), or other lesion(s) by snare technique (14337) on 01/17/2021 at 45 Years. Knee ([id number]). Tonsillectomy and adenoidectomy (244164070). Oral ([id number]).. Colorectal neoplasm risk assessment Average risk. Informed [...] QID, # 720 cap(s), Refills(s) 1, Pharmacy: [facility]/pharmacy #[id number], 182, cm, 02/28/24 8:07:00 EDT, Height/Length Dosing, 79.2, kg, 02/28/24 8:07:00 EDT, Weight Dosing omeprazole 40 mg Cap-DR: 40 mg = 1 cap(s), Oral, Daily, # 90 cap(s), Refills(s) 0, Pharmacy: [facility]/pharmacy #[id number], 182, cm, 10/30/21 10:41:00 EST, Height/Length [...] hemorrhoids on retroflexion Images Procedure images: Rec_hd_video__08_[id number].jpg Rec_hd_video__T08_25_15_[id number].jpg Rec1_hd_video__T08_30_25_160.jpg Rec1_hd_video__[id number]_34_[id number]_242.jpg Rec1_hd_video__T08_36_04_499.jpg Rec1_hd_video__T08_36_10_452.jpg Rec1_hd_video_T08_37_34_096.jpg Rec1_hd_video_2023__T08_38_32_400.jpg Rec1_hd_video__T08_39_09_250.jpg . Post-Procedure Complications: none. Estimated blood loss: Minimal. Specimens: sent to pathology. Devices/ implants: none left in place. Impression and Plan Colitis and ileitis consistent with hx of CD s/p biopsies internal hemorrhoids Recommendations: R (more content not included)...[facility] HospitalComment on above: Other Comment: Missing Attachment - attachment storage system not supported [id number] Can be viewed in source systemMissing Attachment - attachment storage system not supported [id number] Can be viewed [facility] systemMissing Attachment - attachment storage system not supported [id number] Can be viewed in source systemMissing Attachment - attachment storage system not supported [id number] Can be viewed in source systemMissing Attachment - attachment storage system not supported [id number] Can be viewed in source systemMissing Attachment - attachment storage system not supported [id number] Can be viewed in source systemMissing Attachment - attachment storage system not supported [id number] Can be viewed in source systemMissing Attachment - attachment storage system not supported [id number] Can be viewed in source systemMissing Attachment - attachment storage system not supported [id number] Can be viewed in [id number] Note Progress Note-Physician Patient: GRACIELA SEVERINO Age: 49 years Sex: Male : 1975 [...] QID, # 720 cap(s), Refills(s) 1, Pharmacy: [facility]/pharmacy #[id number], 182, cm, 02/28/24 8:07:00 EDT, Height/Length Dosing, 79.2, kg, 02/28/24 8:07:00 EDT, Weight Dosing omeprazole 40 mg Cap-DR: 40 mg = 1 cap(s), Oral, Daily, # 90 cap(s), Refills(s) 0, Pharmacy: [facility]/pharmacy #[id number], 182, cm, 10/30/21 10:41:00 EST, Height/Length [...] All Problems Acid reflux / SNOMED CT 372985223 / Confirmed Anal pain / SNOMED CT 778882329 / Confirmed Colon polyp / SNOMED CT 619084581 / Confirmed Crohn's disease of both small and large intestine / SNOMED CT 772138381 / Confirmed Essential hypertension / SNOMED CT 19656255 / Confirmed Gastroesophageal reflux disease / SNOMED CT 814488445 / Confirmed Indigestion / SNOMED CT 386765977 / Confirmed Loose stools / SNOMED CT 9331118293 / Confirmed Nausea and vomiting / SNOMED CT 05870615 / Confirmed, Active Problems (9) Acid reflux Anal pain Colon polyp Crohn's disease of both small and large intestine Essential hypertension Gastroesophageal reflux disease Indigestion Loose stools Nausea and vomiting Histories Past Medical History: No active or resolved past medical history items have been selected or recorded. Family History: Entire family history is negative. Procedure history: Colonoscopy ([id number]) on 03/28/2021 at 46 Years. Comments: 03/28/2021 11:00 EDT - Raven Nair RN biopsies, terminal ileitis inflammation with ulcers, transverse colon erosions, and descending erosions, polyp x1 Esophagogastroduodenoscopy and biopsy ([id number]) on 01/17/2021 at 45 Years. Colonoscopy, flexible; with removal of tumor(s), polyp(s), or other lesion(s) by snare technique (14509) on 01/17/2021 at 45 Years. Knee (733436237). Tonsillectomy and adenoidectomy (068771152). Oral (2495853515). Social History Social & Psychosocial Habits Tobacco 02/28/2024 Tobacco Use: 5-9 cigarettes (between 02/28/2024 Tobacco Use: 5-9 cigarettes (between Smokeless tobacco use: Never . Physical Examination [...] 08:16) Heart Rate Monitored 100 bpm (MAR 23 08:16) Resp Rate 18 br/min (MAR 23 08:16) SBP 123 mmHg (MAR 23 08:16) DBP 79 mmHg (MAR 23 08:16) Weight 79.2 kg (MAR 23 08:15) BMI 23.91 (MAR 23 08:15) Measurements from flowsheet : Measurements 03/23/2024 8:15 EDT Height/Length Measured 182 cm Height/Length Dosing 182.0 cm Weight Dosing 79.2 kg BSA Measured 2 m2 Body Mass Index Measured 23.91 kg/m2 Weight Measured 79.2 kg Airway: Mallampati classification: II (soft palate, fauces, uvula visible). Respiratory: Lungs are clear to auscultation, Respirations are non-labored, adequate air exchange. Cardiovas (more content not included)...[facility] HospitalComment on above:Result Comment: Electronically Signed By: Fabien ARRIETA, Tony Vera\.br\Date and Time Signed: 03/23/24 08:55 [id number] Evaluation + Plan note Future Scheduled Tests [...] Panel 04/10/24 * Vitamin B12 Level 04/10/24 [facility] 03-07-2022 Evaluation + Plan note [...] 02/16/21 * Hepatitis B Surface [facility]igen [facility] Appointment Date:02/05/2022 01:40:00 PM Scheduled Provider:Amanda Houser CNP Location[facility] Appointment Type:[facility] Follow Up Future Scheduled Tests Laboratory* Calprotectin, [...] 02/16/21 * Hepatitis B Surface Antigen 02/16/21 [facility] Evaluation + Plan note Future Appointments Appointment Date:12/19/2023 01:00:00 PM Scheduled Provider:Angel SMITH MD Location:[facility] Appointment Type:[facility] Follow Up [facility] Evaluation + Plan note Future Appointments Appointment Date:03/23/2024 08:00:00 AM Scheduled Provider: Location:[facility] Appointment Type:Surgery FT Future Scheduled Tests Laboratory* Calprotectin, Fecal 02/28/24 * Vitamin D 25 Hydroxy 02/28/24 * CBC w/ Auto Diff 02/28/24 * Comprehensive Metabolic Panel 02/28/24 * C-Reactive Protein 02/28/24 Radiology* CT Abdomen/Pelvis w/contrast (enterography) 02/28/24 [facility] Evaluation + Plan note Future Appointments Appointment Date:03/23/2024 09:00:00 AM Scheduled Provider: Location:[facility] Appointment Type:Surgery FT Future Scheduled Tests Laboratory* Calprotectin, Fecal 02/28/24 * Vitamin D 25 Hydroxy 02/28/24 * CBC w/ Auto Diff 02/28/24 * Comprehensive Metabolic Panel 02/28/24 * C-Reactive Protein [facility]28[facility]24 [facility] App[facility]ments Appointment Date:08/14/2024 08:15:00 AM Scheduled Provider:Juma Yanez MD Location[facility] Appointment Type:[facility] Follow Up Diagnostic Tests Pending * Quantiferon-TB [...] Metabolic Panel 02/28/24 * C-Reactive Protein 02/28/24 [facility] Evaluation + Plan note Future Appointments Appointment Date:11/06/2024 08:15:00 AM Scheduled Provider:Juma Yanez MD Location:[facility] Appointment Type:[facility] Follow Up Future Scheduled Tests Laboratory* Calprotectin, Fecal 08/14/24 * Calprotectin, Fecal 02/28/24 * Calprotectin, Fecal 04/10/24 * Vitamin D 25 Hydroxy 02/28/24 * CBC w/ Auto Diff 02/28/24 * Comprehensive Metabolic Panel 02/28/24 * C-Reactive Protein 02/28/24 * Hepatic Function Panel 11/09/24 [facility] Evaluation note* Diagnosis Other atopic dermatitis documented in [facility] Diagnosis Gastroesophageal reflux disease, unspecified whether esophagitis present documented in this encounter [facility] Diagnosis Other atopic dermatitis documented in this encounter [facility]* Diagnosis Other atopic dermatitis documented in this encounter [facility]* Diagnosis Other atopic dermatitis documented in this encounter [facility]* Diagnosis Lumbar radiculopathy- Primary Thoracic or lumbosacral neuritis or radiculitis, unspecified documented in this encounter [facility] course Narrative No data available for this section [facility] No data available for this section [facility] No data available for this section [facility] Reason for visit Narrative* Other Medical (Routine) - Closed Specialty Diagnoses / Procedures Referred By Wilder t Referred To Contact Neurology Diagnoses Low back pain, unspecified Procedures NE NEEDLE EMG EA EXTREMTY W/PARASPINL AREA COMPLETE NE NERVE CONDUCTION STUDIES 9-10 STUDIES Ruth Love PA [address] [place] [id number] Phone: tel: fax: Moe Greco MD [address] [place] [address] Phone: tel: fax: Referral ID Status Reason Start Date Expiration Date V isits Requested Visits Authorized [id number] Closed Perform Procedure 09/29/2024 03/28/2025 1 1 [facility] Summary Purpose Family History No Family History [...] and content) DATE CREATED AUTHOR 04/01/2021 [facility] DATE CREATED AUTHOR AUTHOR'S ORGANIZ ATION 03/27/2024 [facility] DATE CREATED AUTHOR AUTHOR'S ORGANIZ ATION 08/09/2024 [facility] DATE CREATED AUTHOR AUTHOR'S ORGANIZ ATION 08/11/2024 [facility] DATE CREATED AUTHOR AUTHOR'S ORGANIZ ATION 08/14/2024 [facility] DATE CREATED AUTHOR AUTHOR'S ORGANIZ ATION 08/17/2024 [facility] DATE CREATED AUTHOR AUTHOR'S ORGANIZ ATION 08/20/2024 [facility] DATE CREATED AUTHOR AUTHOR'S ORGANIZ ATION 09/21/2024 [facility] DATE CREATED AUTHOR AUTHOR'S ORGANIZ ATION 10/17/2024 [facility] dical Specialists [facility] Patient Care team informatio n (unrecognized section and content) Manager Learning Relationship Specialty Start Date End Date Jaquan Severino MD [address] [place] [address] PCP - General Family Medicine 01/01/23 Anna Carr APRN-SECOND CUTTER [address] [place] [address] PCP - [employer] 11/25/23 Manager Learning Relationship Specialty Start Date End Date Jaquan Severino MD [address] [place] [address] PCP - General Family Medicine 01/01/23 Anna Carr APRN-SECOND CUTTER [address] [place] [address] PCP - [employer] 11/25/23 Manager Learning Relationship Specialty Start Date End Date Jaquan Severino MD [address] [place] [address] PCP - General Family Medicine 01/01/23 Anna Carr, SUBSTATION DESIGN DRAFTSPERSON-SECOND CUTTER [address] [place] [address] PCP - [employer] 11/25/23 Manager Learning Relationship Specialty Start Date End Date Jaquan Severino MD [address] [place] [address] PCP - General Family Medicine 01/01/23 Anna Carr, SUBSTATION DESIGN DRAFTSPERSON-SECOND CUTTER [address] [place] [address] PCP - [employer] 11/25/23 Manager Learning Relationship Specialty Start Date End Date Jaquan Severino MD [address] [place] [address] PCP - General Family Medicine 01/01/23 Anna Carr, SUBSTATION DESIGN DRAFTSPERSON-SECOND CUTTER [address] [place] [address] PCP - [employer] 11/25/23 Manager Learning Relationship Specialty Start Date End Date Jaquan Severino MD [address] [place] [address] PCP - General Family Medicine 01/01/23 Manager Learning Relationship Specialty Start Date End Date Jaquan Severino MD [address] [place] [address] PCP - General Family Medicine 01/01/23 Manager Learning Relationship Specialty Start Date End Date Jaquan Severino MD [address] [place] [address] PCP - General Family Medicine 01/01/23 Reason for Visit (unrecogniz ed section and content) Reason Comments Follow-up Reason Comments Med Refill Reason Comments new patient Pt states he has bee n getting red, dry patches for about two years. Currently his feet are peeling. Specialty Diagnoses / Procedures Referred By Contac t Referred To Contact Allergy Diagnoses Other atopic dermatitis Procedures NE OFFICE/OUTPATIENT NEW HIGH MDM Anna Carr, SUBSTATION DESIGN DRAFTSPERSON-SECOND CUTTER [address] [place] [address] Phone: tel: fax: Yohana Sewell MD [address] [place] [address] Phone: tel: fax: Referral ID Status Reason Start Date Expiration Date V isits Requested Visits Authorized [id number] Closed Specialty Services Required 08/12/2024 02/08/2025 1 [...] BE BASED ON THE PRIMARY CLINICAL RECORDS. [employer] provides no warranty or guarantee of the accuracy or completeness of information in this document.
--- NOTE | 2024-10-20 08:02 | ED_ITS ---
HPI HPI - General Adult General Chief complaint: Skin/Abscess/Foreign Body Stated complaint: insect bite Time Seen by Provider: 10/20/24 07:50 Source: patient Mode of arrival: walk-in Limitations: no limitations History of Present Illness HPI narrative: The patient is a 49 years old coming to the ER after he had an insect bite almost 2 days ago to his left foot, notes that something bit him on his second toe on the left foot and he noticed some redness after that and he is coming to the ER to be evaluated He did mention that initially there was some itching but the redness got worse a nd that why he showed up He did not see the insect that bit him and he denies being in the [place] it was at home Related Data Home Medications ?Medication ?Instructions ?Recorded ?Confirmed omeprazole 40 mg capsule,delayed 40 mg PO DAILY 02/03/24 02/03/24 release tamsulosin 0.4 mg capsule 0.4 mg PO Q24H 02/03/24 02/03/24 Previous Rx's ?Medication ?Instructions ?Recorded alclometasone 0.05 % topical 1 applic topical BID PRN itching 10/20/24 ointment #15 grams doxycycline hyclate 100 mg capsule 100 mg PO BID 7 days #14 caps 10/20/24 Allergies Allergy/AdvReac Type Severity Reaction Status Date / Time No Known Drug Allergies Allergy Verified 02/03/24 20:22 Opioid HPI Opioid Management Most Recent Opioid Data: No Data to Display Review of Systems ROS Status of ROS 10 or more systems reviewed and unremark able except as noted in history and below PFSH PFSH Social History Little interest or pleasure in doing things: not at all Feeling down, depressed, or hopeless: not at all Exam Narrative Exam Narrative: Nurses notes and vital signs reviewed and patient is not hypoxic. General: Well-appearing and in no apparent distress. Skin: Warm, dry, no pallor noted. Lower extremity exam: Left lower extremity examination showed that the patient have redness surrounding the area of the left foot mostly toward the second toe dorsum. There is mild redness from the toe proximally almost 1 cm into the foot The patient have no abscess or any obvious entrance wound and there is no vascular injury detected Constitutional Vital Signs, click to edit/add: Last Vital Signs Temp 98.1 F 10/20/24 07:18 Pulse 89 10/20/24 07:18 Resp 16 02/25/25 07:18 BP 159/103 H 10/20/24 08:12 Pulse Ox 98 10/20/24 07:18 O2 Del Method Room Air 10/20/24 07:18 Course Vital Signs Vital signs: Vital Signs Temperature 98.1 F 10/20/24 07:18 Pulse Rate 89 10/20/24 07:18 Respiratory Rate 16 10/20/24 07:18 Blood Pressure 157/105 H 10/20/24 07:18 Pulse Oximetry 98 10/20/24 07:18 Oxygen Delivery Method Room Air 10/20/24 07:18 Temperature 98.1 F 10/20/24 07:18 Pulse Rate 89 10/20/24 07:18 Respiratory Rate 16 10/20/24 07:18 Blood Pressure 159/103 H 10/20/24 08:12 Pulse Oximetry 98 10/20/24 07:18 Oxygen Delivery Method Room Air 10/20/24 07:18 Medical Decision Making MDM Narrative Medical decision making narrative: The patient will be treated for possible insect bite infected with mild cell ulitis Doxycycline provided in addition to hydrocortisone cream Patient instructed about the importance of follow-up and monitoring in case of increasing redness he is to come back to the ER The patient is to follow up with primary care physician in next 2-3 days or to return to the emergency department should any of the signs or symptoms worsen or new symptoms develop. The patient agrees with the following Diagnosis and Treatment plan and the patient will be discharged home. Discharge Plan Discharge Chief Complaint: Skin/Abscess/Foreign Body Clinical Impression: Insect bite, Cellulitis Patient Disposition: Home, Self-Care Time of Disposition Decision: 08:02 Mode of Transportation: Private Vehicle Prescriptions / Home Meds: New doxycycline hyclate 100 mg capsule 100 mg PO BID 7 Days Qty: 14 0RF alclometasone 0.05 % ointment 1 applic topical BID PRN (Reason: itching) Qty: 15 0RF No Action omeprazole 40 mg capsule,delayed release(DR/EC) 40 mg PO DAILY tamsulosin 0.4 mg capsule 0.4 mg PO Q24H Print Language: [place]an Instructions: Cellulitis (ED) Referrals: JAQUAN KANG [Primary Care Provider] - 1 week Discharge Date/Time: 10/20/24 08:13
[2024-10-20] MEDS: PREDNISONE 20 MG TABLET 40 MG PO (08:09)
[2024-10-20] MEDS: DOXYCYCLINE MONOHYDRATE 100 MG CAPSULE PO (08:09)
[2024-10-20 08:12] VITALS: BP 159/103
== END 2024-10-20 08:13 | disposition home or self-care (01) ==
PROVIDERS: Emergency Provider Emergency Medicine; PCP Family Medicine
DX: S90.862A Insect bite (nonvenomous), left foot, initial encounter (principal); L03.116 Cellulitis of left lower limb; W57.XXXA Bitten or stung by nonvenomous insect and other nonvenomous arthropods, initial encounter
CPT/HCPCS: 99283; J7512

== ENCOUNTER 2024-11-27 09:14 | Outpatient (OUT) | payer BC, SELFPAY ==
--- NOTE | 2024-11-27 09:30 | ECG_ITS ---
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 Measurements Intervals [place] Rate: 81 P: 58 IN: 164 QRS: 37 QRSD: 101 T: 60 QT: 386 QTc: 450 Interpretive Statements NORMAL SINUS RHYTHM Normal ECG No previous ECG available for comparison Electronically Signed On 11-30-2024 17:47:55 EDT by RAFI GIMENEZ M.D.
--- NOTE | 2024-11-27 10:00 | XR_ITS ---
The [address] [address] Patient Name: GRACIELA KANG MRN: [id number] date: 1975 Sex: M Assigned Patient Location: LAB Current Patient Location: LAB Accession/Order Number: [id number] Exam Date: 11/27/2024 10:42 Report Date: 11/27/2024 10:44 At the request of: RUY GRIFFITHS MD Procedure: XR chest 2V PA AND LATERAL CHEST: CLINICAL HISTORY: Spinal Stenosis Lumbosacral Region. Presurgical clearance COMPARISON: None There is no focal parenchymal consolidation, effusion or pneumothorax. The cardiac, hilar and mediastinal silhouettes are within normal limits. There is no vascular congestion. The visualized bony thorax is intact. Subtle thoracolumbar scoliotic curvature and endplate spurring are present. XR/XR chest 2V IMPRESSION: NO ACUTE CARDIOPULMONARY ABNORMALITY. Impression dictated by: Kymberly Hsu M.D.11/27/2024 10:44 AM Dictation Location: [place] [address] Electronically authenticated by: [id number] Y Date: 11/27/2024 10:44
[2024-11-27 10:30] LABS: Basophils Absolute Auto 0.1 10^3/uL (0.0-0.1); Eosinophils Absolute Auto 0.2 10^3/uL (0.0-0.7); Eosinophils Percent Auto 2.3 % (0.9-7.0); Hematocrit 41.3 % (42.0-54.0); Immature Granulocytes Abs Auto 0.03 10^3/uL (0.00-0.03); Immature Granulocytes Pct Auto 0.4 % (0.0-0.5); Lymphocytes Absolute Auto 2.1 10^3/uL (1.2-3.8); Lymphocytes Percent Auto 26.9 % (20.5-60.0); Mean Corpuscular HGB Conc 33.9 g/dL (29.9-35.2); Mean Corpuscular Volume 103.3 fL (80.0-94.0); Mean Platelet Volume 9.2 fL (9.5-13.5); Monocytes Absolute Auto 0.6 10^3/uL (0.3-0.8); Monocytes Percent Auto 7.9 % (1.7-12.0); Neutrophils Absolute Auto 4.8 10^3/uL (1.4-6.5); Neutrophils Percent Auto 61.5 % (43.0-75.0); Platelet Count 205 10^3/uL (150-450); Red Cell Distribution Width 11.9 % (11.0-15.0); White Blood Count 7.9 10^3/uL (4.0-11.0)
[2024-11-27 10:45] LABS: Anion Gap 11.4; BUN Creatinine Ratio 6.2; Calcium 8.8 mg/dL (8.5-10.1); Chloride 103 mmol/L (98-107); Estimated GFR (African America >60 (>=60 mL/min/1.73m^2); Estimated GFR (Non-African Ame >60 (>=60 mL/min/1.73m^2); Glucose 63 mg/dL (74-106); Potassium 3.4 mmol/L (3.5-5.1); Sodium 140 mmol/L (136-145)
[2024-11-27 11:11] LABS: INR 0.98; Partial Thromboplastin Time 28.4 sec (22.3-36.2); Prothrombin Time 10.4 sec (9.0-11.6)
== END 2024-11-27 09:15 | disposition home or self-care (01) ==
PROVIDERS: PCP Family Medicine; Visit Provider Orthopaedic Surgery Orthopaedic Surgery of the Spine
DX: M48.07 Spinal stenosis, lumbosacral region (principal)
CPT/HCPCS: 36415; 71046; 80048; 85025; 85610; 85730; 87081; 93005

== ENCOUNTER 2024-12-07 09:09 | Emergency (ER) | payer BC, SELFPAY ==
[2024-12-07 09:27] VITALS: BP 166/105; PULSE 100; TEMP 37.2; O2SAT 97; BMI 22.0
--- OUTSIDE RECORDS SUMMARY | 2024-12-07 09:34 | XMS_ITS | CCD ---
Author Organization [facility] Care Team Providers Care Registered Massage Therapist Name Role Phone REQUEST, DR NONE LISTED Admitting Unavaila ble REQUEST, NONE LISTED Attending Unavaila ble REQUEST, NONE LISTED Consulting Unavaila ble Jaquan Severino Primary Care Physician Juma Yanez Attending Unavailable Juma Yanez. Admitting Unavailable Jaquan Severino MD Primary Care Provider [phone] Bruno EWING-Anna CORDON Unavailable Juma Yanez. Admitting Unavailable Mouchli Mohamad A. Attending Unavailable Mouchli Mohamad A. Attending Unavailable Mouchmoiz Mohamad A. Attending Unavailable Mouchli Mohamad A. Referring Unavailable Mouchli Mohamad A. Admitting Unavailable Mouchli Mohamad A. Attending Unavailable Mouchli Mohamad A. Admitting Unavailable Mouchli, Mohamad A. Attending Unavailable Momeaganli Mohamad A. Referring Unavailable Deisy Dunaway Attending Unavaila Deisy Kay Attending Unavaila ble Momeaganli Mohamad A. Attending Unavailable Mouchli, Mohamad A. Attending Unavailable YOHANA SEWELL Attending Unavailable ANNA CARR Referring Unavailable ANNA CARR Attending Unavailable ANNA CARR Attending Unavailable GOMEZ SEBASTIAN Attending Unavailable ALLY LOVE Referring UnaKIYA Castaneda Attending Unavailable ANNA CARR Attending Unavailable RAQUEL DEUTSCH Attending Unavailable KIYA ACEVEDO Attending Unavailable ANNA CARR Attending Unavailable Medications Current Medications Medication Drug Class(es) Dates Sig (Normalized) Sig (Original) diphenhydrAMINE hydrochloride 20 mg/ml / zinc acetate 1 mg/ml topical cream (19 sources) Histamine-1 Receptor Antagonist Start: 4 End: [...] Active Hadlima PushTouch 40 MG/0.8ML solution auto-injector (9 sources) Start: 5 Hadlima PushTouch 40 MG/0.8ML solution auto-injector 09/28/2024 Active mesalamine 500 mg extended release oral capsule (20 sources) Aminosalicylate Start: 3 End: 5 take 2 capsules by mouth four times daily mesalamine 500 mg Cap-ER 1,000 mg = 2 cap(s), Oral, QID, # 720 cap(s), Refills(s) 1, Pharmacy: [facility]/pharmacy #[id number], 182, cm, 02/28/24 8:07:00 EDT, Height/Length Dosing, 79.2, kg, 02/28/24 8:07:00 EDT, Weight Dosing Start Date: 03/10/24 Status: Ordered Start: 10-30-2021 take 2 capsules by m outh four times daily mesalamine 500 mg Cap-ER 1,000 mg = 2 cap(s), Oral, QID, # 240 cap(s), Refills(s) 11, Pharmacy: [facility]/pharmacy #[id number], 182, cm, 10/30/21 10:41:00 EST, Height/Length [...] day(s), # 90 cap(s), Refills(s) 1, Pharmacy: [facility]/pharmacy #[id number], 182, cm, 10/30/21 10:41:00 EST, Height/Length Dosing, 81.5, kg, 10/30/21 10:41:00 EST, Weight Dosing Start Date: 11/28/21 Stop Date: 05/27/22 Status: Ordered polyethylene glycol 3350 789994 mg / potassium chloride 1480 mg / sodium bicarbonate 5720 mg / sodium chloride 82628 mg powder for oral solution (1 source) Osmotic Laxative Start: 12-20-2022 take 1 dose by mouth once NuLYTELY [place] oral powder for reconstitution See Instructions, 1 EA, Refill(s) 0, Per physician instructions, prior to colonoscopy., [facility]/pharmacy #[id number], 182, cm, 12/20/22 13:35:00 EDT, Height/Length Dosing, 77.7, kg, 12/20/22 13:35:00 EDT, Weight Dosing Start Date: 12/20/22 Status: Ordered predniSONE 20 mg oral tablet (8 sources) Start: 08-12-2024 End: 09-17-2024 predniSONE (Deltasone) 20 MG tablet Indications: Other atopic dermatitis 2 tablets for 7 days and then 1 tablet for 7 days 21 tablet 08/12/2024 09/17/2024 Discontinued (Therapy completed) tamsulosin hydrochloride 0.4 mg oral capsule (20 sources) alpha-Adrenergi c Theresa Start: 01-11-2021 take 1 capsule by mouth once daily tamsulosin (Flomax) 0.4 MG 24 hr capsule Indications: Benign prostatic hyperplasia without lower urinary tract symptoms Take 1 capsule (0.4 mg) by mouth Daily 90 capsule 3 02/21/2024 Active Completed/Discontinued Medications Medication Drug Class(es) Dates Sig (Normalized) Sig (Original) tacrolimus 0.001 mg/mg topical ointment (16 sources) Calcineurin Inhibitor Immunosuppressant Start: 08-03-2024 End: 11-23-2024 tacrolimus (Protopic) 0.1 % ointment APPLY TO AFFECTED AREA EVERY 12 HOURS *HOLD WHEN CLEAR* 08/03/2024 11/23/2024 Discontinued (Therapy completed) triamcinolone acetonide 1 mg/ml topical cream (18 sources) Corticosteroid End: 11-23-2024 triamcinolone (Kenalog) 0.1 % cream 1 application 1 (one) time each day at the same time. 11/23/2024 Discontinued (Therapy completed) Problems Active Problems Problem Classification Problem Date Documented Da te Episodic/Chronic Acquired foot deformities (7 sources) Right foot drop; Translations: [Foot drop, right foot] Onset: 5 11-23-2024 Episodic Allergic reactions (10 sources) Atopic dermatitis; Translations: [...] disorders (6 sources) Loose stool 02-28-2024 Episodic Other gastrointestinal disorders (7 sources) History of Crohns disease; Translations: [Personal history of other diseases of the digestive system] 11-23-2024 Episodic Regional enteritis and ulcerative colitis (16 sources) Regional ileocolitis; Translations: [Crohn's disease of small AND large intestines] Onset: 3 02-16-2021 Chronic Residual codes; unclassified (1 source) Tobacco user 08-14-2024 Episodic Spondylosis; intervertebral disc disorders; other back problems (8 sources) Lumbar radiculopathy; Translations: [Radiculopathy, lumbar region] Onset: 10-15-2024 Episodic Past or Other Problems Problem Classification Problem Date Documented Da te Episodic/Chronic Nausea and vomiting (7 sources) Nausea and vomiting Onset: 10-30-2021 02-20-2024 Episodic Results Test Name Value Interpretation Reference Range Facility ECG 12-LEADon 11-30-2024 [place] [address] Electrocardiograph Report Signed Patient: GRACIELA SEVERINO MR#: [id number] : 1975 Acct:[id number] Age/Sex: 49 / M ADM Date: 11/27/24 Loc: LAB Attending Dr: Edelmira Dias M.D. Ordering Physician: Edelmira Dias M.D. Date of Service: 11/27/24 Procedure(s): ECG 12 lead Accession Number(s): [id number] cc: [facility] Test Date: 2024-11-27 Pat Name: GRACIELA SEVERINO Department: Room: - Gender: Male Directory Compiler: : 1975 Requested By: 2078 Order Number: [id number] Estuardo MD: RAFI GIMENEZ M.D. Measurements Intervals [place] Rate: 81 P: 58 WV: 164 QRS: 37 QRSD: 101 T: 60 QT: 386 QTc: 450 Interpretive Statements NORMAL SINUS RHYTHM Normal ECG No previous ECG available for comparison Electronically Signed On 11-30-2024 17:47:55 EDT by RAFI GIMENEZ M.D. Dictated By: RAFI GIMENEZ Signed By: 11/30/24 1748 11/30/24 174 DD/ 0934 TD/TT: Honey Processor: [facility] Radiology, Radiologbraxton martínez MD - 11/30/[address] [address] Electrocardiograph Report Signed Patient: GRACIELA SEVERINO MR#: [id number] : 1975 Acct:[id number] Age/Sex: 49 / M ADM Date: 11/27/24 Loc: LAB Attending Dr: Edelmira Dias M.D. Ordering Physician: Edelmira Dias M.D. Date of Service: 11/27/24 Procedure(s): ECG 12 lead Accession Number(s): [id number] cc: [facility] Test Date: 2024-11-27 Pat Name: GRACIELA SEVERINO Department: Room: - Gender: Male Directory Compiler: : 1975 Requested By: 2078 Order Number: [id number] Reading MD: RAFI GIMENEZ M.D. Measurements Intervals [place] Rate: 81 P: 58 WV: 164 QRS: 37 QRSD: 101 T: 60 QT: 386 QTc: 450 Interpretive Statements NORMAL SINUS RHYTHM Normal ECG No previous ECG available for comparison Electronically Signed On 11-30-2024 17:47:55 EDT by RAFI GIMENEZ M.D. Dictated By: RAFI GIMENEZ Signed By: 11/30/24 1748 11/30/24 174 DD/ 0934 TD/TT: Honey Processor: [facility] ECG 12-LEADOrdered By: Radio logist Radiology on 11-30-2024 [facility] Work Phone: ALL BASIC METABOLIC PANELon 11-27-2024 Anion gap [Moles/Vol] 11.4 mmol/L [facility] Calcium [Mass/Vol] 8.8 mg/dL 8.5 - 10. 1 mg/dL [facility] Chloride [Moles/Vol] 103 mmol/L 98 - 107 mmol/L [facility] CO2 [Moles/Vol] 29 mmol/L 21.0 - 32.0 mmol/L [facility] Creatinine [Mass/Vol] 0.81 mg/dL 0.70 - 1.30 mg/dL [facility] GFR/1.73 sq M.predicted CKD-EPI (S/P/Bld) [Vol rate/Area] >60 >=60 mL/min/1.73 m 2 [facility] Glucose [Mass/Vol] 63 mg/dL Low 74 - 106 mg/dL [facility] Interpretation and review of laboratory results Abnormal [facility] Potassium [Moles/Vol] 3.4 mmol/L Low 3.5 - 5.1 mmol/L [facility] Sodium [Moles/Vol] 140 mmol/L 136 - 145 mmol/L [facility] TB EGFR-NON AF MAURITIAN >60 >=60 mL/min/1.73 m 2 [facility] Urea nitrogen [Mass/Vol] 5 mg/dL Low 7.0 - 18.0 mg/dL [facility] Urea nitrogen/Creatinine [Mass ratio] 6.2 mg/mg [facility] ECG 12-LEADon 11-27-2024 Radiology Study observation (narrative) [facility] XR CHEST 2Von 11-27-2024 [place] [address] XRay Report Signed Patient: GRACIELA SEVERINO MR#: [id number] : 1975 Acct:[id number] Age/Sex: 49 / M ADM Date: 11/27/24 Loc: LAB Attending Dr: Edelmira Dias M.D. Ordering Physician: Edelmira Dias M.D. Date of Service: 11/27/24 Procedure(s): XR chest 2V Accession Number(s): [id number] cc: JAQUAN SEVERINO ; Edelmira Dias M.D. [place] [address] Patient Name: GRACIELA SEVERINO MRN: [facility]:[id number] date: 1975 Sex: M Assigned Patient Location: LAB Current Patient Location: LAB Accession/Order Number: [id number] Exam Date: 11/27/2024 10:42 Report Date: 11/27/2024 10:44 At the request of: EDELMIRA DIAS MD Procedure: XR chest 2V PA AND LATERAL CHEST: CLINICAL HISTORY: Spinal Stenosis Lumbosacral Region. Presurgical clearance COMPARISON: None There is no focal parenchymal consolidation, effusion or pneumothorax. The cardiac, hilar and mediastinal silhouettes are within normal limits. There is no vascular congestion. The visualized bony thorax is intact. Subtle thoracolumbar scoliotic curvature and endplate spurring are present. XR/XR chest 2V IMPRESSION: NO ACUTE CARDIOPULMONARY ABNORMALITY. Impression dictated by: Kymberly Hsu M.D.11/27/2024 10:44 AM Dictation Location: [place] [address] Electronically authenticated by: [id number] Y Date: 11/27/2024 10:44 Dictated By: Kymberly Hsu M.D. Signed By: 11/27/24 1046 DD/ 1044 TD/TT: Honey Processor: [facility] Radiology, Radiologbraxton martínez MD - 11/27/2024 [place] [address] XRay Report Signed Patient: GRACIELA SEVERINO MR#: [id number] : 1975 Acct:[id number] Age/Sex: 49 / M ADM Date: 11/27/24 Loc: LAB Attending Dr: Edelmira Dias M.D. Ordering Physician: Edelmira Dias M.D. Date of Service: 11/27/24 Procedure(s): XR chest 2V Accession Number(s): [id number] cc: JAQUAN SEVERINO ; Edelmira Dias M.D. The [place] [address] Patient Name: GRACIELA SEVERINO MRN: [facility]:[id number] date: 1975 Sex: M Assigned Patient Location: LAB Current Patient Location: LAB Accession/Order Number: [id number] Exam Date: 11/27/2024 10:42 Report Date: 11/27/2024 10:44 At the request of: EDELMIRA DIAS MD Procedure: XR chest 2V PA AND LATERAL CHEST: CLINICAL HISTORY: Spinal Stenosis Lumbosacral Region. Presurgical clearance COMPARISON: None There is no focal parenchymal consolidation, effusion or pneumothorax. The cardiac, hilar and mediastinal silhouettes are within normal limits. There is no vascular congestion. The visualized bony thorax is intact. Subtle thoracolumbar scoliotic curvature and endplate spurring are present. XR/XR chest 2V IMPRESSION: NO ACUTE CARDIOPULMONARY ABNORMALITY. Impression dictated by: Kymberly Hsu M.D.11/27/2024 10:44 AM Dictation Location: [place] [address] Electronically authenticated by: [id number] Y Date: 11/27/2024 10:44 Dictated By: Kymberly Hsu M.D. Signed By: 11/27/24 1046 DD/ 1044 TD/TT: Honey Processor: [facility] Radiology Study observation (narrative) [facility] XR CHEST 2VOrdered By: JoggleBug Radiology on 11-27-2024 [facility] Work Phone: EMG [phone] Extremeityon An acute and chronic L5 radiculopathy on the right which is moderate to severe in degree electrically. [facility] NVC 5-6 Nerveson 10-15-2024 An acute and chronic L5 radiculopathy on the right which is moderate to severe in degree electrically. [facility] [place] [address] Magnetic Resonance Report Signed Patient: GRACIELA SEVERINO MR#: [id number] : 1975 Acct:[id number] Age/Sex: 49 / M ADM Date: 10/14/24 Loc: MRI Attending Dr: Edelmira Dias M.D. Ordering Physician: Edelmira Dias M.D. Date of Service: 10/14/24 Procedure(s): MR lumbar spine wo con Accession Number(s): [id number] cc: JAQUAN SEVERINO ; Edelmira Dias M.D. [place] [id number] Patient Name: GRACIELA SEVERINO MRN: [id number] date: 1975 Sex: M Assigned Patient Location: MRI Current Patient Location: MRI Accession/Order Number: [id number] Exam Date: 10/14/2024 14:49 Report Date: 10/14/2024 [...] Clemente Austin M.D.10/14/2024 2:55 PM Dictation Location: [place] [address] Electronically authenticated by: [id number] Y Date: 10/14/2024 14:55 Dictated By: Clemente Austin M.D. Signed By: 10/14/24 1458 DD/ 54 TD/TT: Honey Processor: [facility] Radiology, Radiologbraxton martínez MD - 10/14/2024 [place] [address] Magnetic Resonance Report Signed Patient: GRACIELA SEVERINO MR#: [id number] : 1975 Acct:[id number] Age/Sex: 49 / M ADM Date: 10/14/24 Loc: MRI Attending Dr: Edelmira Dias M.D. Ordering Physician: Edelmira Dias M.D. Date of Service: 10/14/24 Procedure(s): MR lumbar spine wo con Accession Number(s): [id number] cc: JAQUAN SEVERINO ; Edelmira Dias M.D. The [place] [address] Patient Name: GRACIELA SEVERINO MRN: [facility]:[id number] date: 1975 Sex: M Assigned Patient Location: MRI Current Patient Location: MRI Accession/Order Number: [id number] Exam Date: 10/14/2024 14:49 Report Date: 10/14/2024 [...] Clemente Austin M.D.10/14/2024 2:55 PM Dictation Location: [place] [address] Electronically authenticated by: [id number] Y Date: 10/14/2024 14:55 Dictated By: Clemente Austin M.D. Signed By: 10/14/24 1458 DD/ 1455 TD/TT: Honey Processor: [facility] Radiology Study observation (narrative) [facility] MR LUMBAR SPINE WO CONOrdere d By: Radiologist Radiology on 10-14-2024 [facility] Work Phone: Patient Letter FTon 2024 Patient Letter [facility] Patient Letter [facility] September 21, 2024 GRACIELA SEVERINO [address] [place] [id number] : 1975 [address] concern, the above patient has been our care here at [facility] since 2020 for diagnosis of Crohn's disease (Chronic inflammatory bowel disease). Patient has been treated with oral therapy in the past and is now being treated with Hadlima until further notice. If there are any further questions, concerns or any issues please contact our office at [phone]. Thank you, [facility] Juma Yanez MD Normal [facility] Lab Miscellaneous-LCon 08-18 Lab Miscellaneous COMMENT Invalid Interpretation Code [facility] Comment on above: Result Comment: Test Ordered: [id number] TPMT and NUDT15 Genotyping TPMT Genotype *1/*1 L9 This test was developed and its performance characteristics determined by [employer]. It has not been cleared or approved [...] Comment L9 Roger Brody MD, PhD Director [employer] Interpretation Comment L9 The thiopurine methyltransferase (TPMT) [...] distinguished by testing TPMT enzyme levels [Test #761628]. ... Molecular-based testing is highly accurate, but [...] [employer], [employer], Dut (more content not included)... Performed By: #### 1 [id number] #### [facility] [address] [place] [address] Gastroenterology Office/Clin ic Noteon 08-14-2024 Gastroenterology Office/Clinic [...] High (08/07/24) Chloride: 99 mmol/L Low (08/07/24) [place] Absolute: 0.5 E9/L (08/07/24) CO2: 29 mmol/L (08/07/24) [place] Auto: 6.9 % (08/07/24) Creatinine: 0.7 mg/dL [...] not do (more content not included)... Normal [facility] Comment on above: Result Comment: Elec tronically Signed By: Renata ARRIETA, Juma Mcadams\.br\Date and Time Signed: 08/14/24 08:51 EST Patient Letter FTon 2023 Patient Letter [facility] Patient Letter [facility] August 14, 2024 GRACIELAChari SEVERINO [address] [place] [phone] : 1975 To whom this may concerns, patient is treated at [facility] for management of his Crohn's disease. If there are any further question or concerns, please give us a call at [phone]. [facility] Juma Yanez MD [facility] Provider Letteron 08-14-2024 Provider Letter Provider Letter August 14, 2024 GRACIELA SEVERINO [address] [place] [address] : 1975 To Whom It May Concern, Please excuse above patient from work. Due to being seen in our office, if you have any question's feel nain to call our office. Date of Illness:08/14/24 From: _08/14/24 To: _08/14/24 Sincerely, [facility] [phone] Normal [facility] Quantiferon-TB Plus (Client Incubated)on 08-11-2024 Gamma interferon background IA Qn (Bld) 0.00 International_Unit/mL Invalid Interpretation Code [facility] Comment on above: Performed By: #### 1 [id number] #### [facility] [address] [place] [address] M. tuberculosis stim IFN-g by CD4+ CD8+ T-cells corrected for background Qn (Bld) 0.00 International_Unit/mL Invalid Interpretation Code [facility] Comment on above: Performed By: #### 1 [id number] #### [facility] [address] [place] [address] M. tuberculosis stim IFN-g by CD4+ T-cells corrected for background Qn (Bld) 0.00 International_Unit/mL Invalid Interpretation Code [facility] Comment on above: Performed By: #### 1 [id number] #### [facility] [address] [place] [address] M. tuberculosis stim IFN-g Ql (Bld) [Interp] Negative Invalid Interpretation Code Negative [facility] Comment on above: Result Comment: No [...] interferon gamma. Chemiluminescence immunoassay methodology Performed at: [email or web address] [id number] PhD Brandin Garay Performed By: #### 1 [id number] #### [facility] [address] [place] [address] Mitogen stimulated gamma interferon corrected for background Qn (Bld) >10.00 Invalid Interpretation Code [facility] Comment on above: Performed By: #### 1 [id number] #### [facility] [address] [place] [address] Service comment (Unsp spec) [Interp] Comment Invalid Interpretation Code [facility] Comment on above: Result Comment: Nicholas [...] for the test. Performed By: #### 1 [id number] #### [facility] [address] [place] [address] .Interpretation:on HCV Ab IA Ql Comment Invalid Interpretation Code [facility] Comment on above: Result Comment: Not infected with HCV unless early or acute infection is suspected (which may be delayed in an immunocompromised individual), or other evidence exists to indicate HCV infection. Performed at: [facility] [id number] PhD Brandin Garay Performed By: #### 2 [id number] #### [facility] [address] [place] [address] Acute Hepatitis A B C Panelo n 08-09-2024 HAV IgM IA Ql Negative Invalid Interpretation Code Negative [facility] Comment on above: Result Comment: A ne gative anti-HAV IgM result suggests no recent or current HAV infection. Performed By: #### 3 [id number] #### [facility] [address] [place] [address] HBV core IgM IA Ql Negative Invalid Interpretation Code Negative [facility] Comment on above: Performed By: #### 3 [id number] #### [facility] [address] [place] [address] HBV surface Ag IA Ql Negative Invalid Interpretation Code Negative [facility] Comment on above: Performed By: #### 3 [id number] #### [facility] [address] [place] [address] HCV IgG IA Ql Non-Reactive Invalid Interpretation Code Non Reactive [facility] Comment on above: Result Comment: Perf ormed at: [facility] [address] [place], [place] [id number] PhD Brandin Garay Performed By: #### 3 [id number] #### [facility] [address] [place] [address] HCV RT-PCR, Quant (Non-Graph )on 08-09-2024 HCV RNA TACO+probe Qn Not detected Invalid Interpretation Code [facility] Comment on above: Performed By: #### 1 [id number] #### [facility] [address] [place] [address] Reference Lab Test Reference Range Comment Invalid Interpretation Code [facility] Comment on above: Result Comment: The quantitative range of this assay is 15 IU/mL to 100 million IU/mL. Performed at: [address] [id number] MD Kendrick Alamo Performed By: #### 1 [id number] #### [facility] [address] [place] [address] Hep Bs Abon 08-09-2024 HBV surface Ab Ql (S) Non-Reactive Invalid Interpretation Code [facility] Comment on above: Result Comment: Non Reactive: Not immune to HBV infection. Equivocal: Unable to determine if anti-HBs is present at levels consistent with immunity. Reactive: Anti-HBs concentration detected at greater than 10 mIU/mL. Individual is considered to be immune to infection with HBV. Performed at: [facility] [address] [place], [place] [id number] PhD Brandin Garay Performed By: #### 2 [id number] #### [facility] [address] [place] [address] CBC w/ Auto Diffon 4 Basophils/100 WBC (Bld) 0.8 % Normal 0.0-2.0 [facility] Comment on above: Performed By: #### 2 [id number] #### [facility] [address] [place] [address] Basophils/Leukocyte s Auto (Bld) [Pure # fraction] 0.1 E9/L Normal 0.0-0.2 [facility] Comment on above: Performed By: #### 2 [id number] #### [facility] [address] [place] [address] Eosinophils (Bld) [#/Vol] 0.2 E9/L Normal 0.0-0.5 [facility] Comment on above: Performed By: #### 2 [id number] #### [facility] [address] [place] [address] Eosinophils/100 WBC (Bld) 2.7 % Normal 0.0-8.0 [facility] Comment on above: Performed By: #### 2 [id number] #### [facility] [address] [place] [address] Erythrocyte distribution width (RBC) [Ratio] 12.7 % Normal 10.9-14.2 [facility] Comment on above: Performed By: #### 2 [id number] #### [facility] [facility] [address] [place] [address] 10044 Hematocrit (Bld) [Volume fraction] 42.8 % Normal 37.7-49.0 [facility] Comment on above: Performed By: #### 2 [id number] #### [facility] [address] [place] [address] 36320 Hemoglobin (Bld) [Mass/Vol] 15.0 g/dL Normal 13.5-17.5 [facility] Comment on above: Performed By: #### 2 [id number] #### [facility] [address] [place] [address] 28267 Lymphocytes (Bld) [#/Vol] 1.9 E9/L Normal 1.0-4.0 [facility] Comment on above: Performed By: #### 2 [id number] #### [facility] [address] [place] [address] 22710 Lymphocytes/100 WBC (Bld) 26.1 % Normal 14.0-50.0 [facility] Comment on above: Performed By: #### 2 [id number] #### [facility] [address] [place] [address] MCH (RBC) [Entitic mass] 36.7 pg High 27.0-34.0 [facility] Comment on above: Performed By: #### 2 [id number] #### [facility] [address] [place] [address] 02068 MCHC (RBC) [Mass/Vol] 35.1 g/dL Normal 31.4-36.0 [facility] Comment on above: Performed By: #### 2 [id number] #### [facility] [address] [place] [address] 43573 MCV (RBC) [Entitic vol] 104.5 fL High 80.0-100.0 [facility] Comment on above: Performed By: #### 2 [id number] #### [facility] [address] [place] [address] 21393 Monocytes (Bld) [#/Vol] 0.5 E9/L Normal 0.2-1.0 [facility] Comment on above: Performed By: #### 2 [id number] #### [facility] [address] [place] [address] 66514 Neutrophils (Bld) [#/Vol] 4.5 E9/L Normal 2.0-7.5 [facility] Comment on above: Performed By: #### 2 [id number] #### [facility] [address] [place] [address] 35828 Neutrophils/100 WBC (Bld) 63.5 % Normal 36.0-75.0 [facility] Comment on above: Performed By: #### 2 [id number] #### [facility] [address] [place] [address] Platelet mean volume (Bld) [Entitic vol] 7.1 fL Normal 6.4-10.8 [facility] Comment on above: Performed By: #### 2 [id number] #### [facility] [address] [place] [address] 61738 Platelets (Bld) [#/Vol] 232.0 E9/L Normal 150.0-500.0 [facility] Comment on above: Performed By: #### 2 [id number] #### [facility] [address] [place] [address] RBC (Bld) [#/Vol] 4.1 E12/L Low 4.3-5.9 [facility] Comment on above: Performed By: #### 2 [id number] #### [facility] [address] [place] [address] WBC corrected for nucl RBC Auto (Bld) [#/Vol] 7.2 E9/L Normal 4.0-11.0 [facility] Comment on above: Performed By: #### 2 [id number] #### [facility] [address] [place] [address] CHEMISTRYOrdered By: SYSTEM SYSTEM on 08-07-2024 25-hydroxyvitamin [...] 08-07-2024 Albumin [Mass/Vol] 4.5 g/dL Normal 3.3-5.0 [facility] Comment on above: Performed By: #### 2 [id number] #### [facility] [address] [place] [address] Albumin/Globulin (S) [Mass conc ratio] 1.3 Normal 1.1-2.2 [facility] Comment on above: Performed By: #### 2 [id number] #### [facility] [address] [place] [address] ALP [Catalytic activity/Vol] 66 Int._Unit/L Normal 21-98 [facility] Comment on above: Performed By: #### 2 [id number] #### [facility] [address] [place] [address] ALT No additional P-5'-P [Catalytic activity/Vol] 37 Int._Unit/L Normal 6-46 [facility] Comment on above: Performed By: #### 2 [id number] #### [facility] [address] [place] [address] Anion gap [Moles/Vol] 12 mmol/L Normal 6-16 [facility] Comment on above: Performed By: #### 2 [id number] #### [facility] [address] [place] [address] AST [Catalytic activity/Vol] 46 Int._Unit/L High 5-43 [facility] Comment on above: Performed By: #### 2 [id number] #### [facility] [address] [place] [address] Bilirubin [Mass/Vol] 0.7 mg/dL Normal 0.0-1.1 [facility] Comment on above: Performed By: #### 2 [id number] #### [facility] [address] [place] [address] Calcium [Mass/Vol] 9.3 mg/dL Normal 8.9-11.1 [facility] Comment on above: Performed By: #### 2 [id number] #### [facility] [address] [place] [address] Chloride [Moles/Vol] 99 mmol/L Low 101-111 [facility] Comment on above: Performed By: #### 2 [id number] #### [facility] [address] [place] [address] CO2 [Moles/Vol] 29 mmol/L Normal 21-31 [facility] Comment on above: Performed By: #### 2 [id number] #### [facility] [address] [place] [address] Creatinine [Mass/Vol] 0.7 mg/dL Normal 0.5-1.3 [facility] Comment on above: Performed By: #### 2 [id number] #### [facility] [address] [place] [address] Globulin (S) [Mass/Vol] 3.5 g/dL Normal 1.4-4.0 [facility] Comment on above: Performed By: #### 2 [id number] #### [facility] [address] [place] [address] Glucose [Mass/Vol] 133 mg/dL Normal 55-199 [facility] Comment on above: Performed By: #### 2 [id number] #### [facility] [address] [place] [address] Potassium [Moles/Vol] 3.6 mmol/L Normal 3.5-5.3 [facility] Comment on above: Performed By: #### 2 704008 #### [facility] [address] [place] [address] Protein [Mass/Vol] 8.0 g/dL High 6.0-7.8 [facility] Comment on above: Performed By: #### 2 [id number] #### [facility] [address] [place] [address] Sodium [Moles/Vol] 136 mmol/L Normal 135-145 [facility] Comment on above: Performed By: #### 2 [id number] #### [facility] [address] [place] [address] Urea nitrogen [Mass/Vol] 4 mg/dL Low 5-21 [facility] Comment on above: Performed By: #### 2 [id number] #### [facility] [address] [place] [address] Urea nitrogen/Creatinine [Mass ratio] 6 No Units Low 10-20 [facility] Comment on above: Performed By: #### 2 [id number] #### [facility] [address] [place] [address] CRPon 08-07-2024 CRP [Mass/Vol] 0.2 mg/dL Normal <=1.9 [facility] Comment on above: Performed By: #### 2 [id number] #### [facility] [address] [place] [address] Ferritinon 08-07-2024 Ferritin [Mass/Vol] 175 ng/mL Normal 24-336 [facility] Comment on above: Performed By: #### 2 [id number] #### [facility] [address] [place] [address] Folateon 08-07-2024 Folate [Mass/Vol] 18.9 ng/mL Normal >=6.7 [facility] Comment on above: Performed By: #### 2 800169 #### [facility] [address] [place] [address] HEMATOLOGYOrdered By: SYSTEM SYSTEM on 08-07-2024 Basophils/100 [...] 08-07-2024 Iron [Mass/Vol] 210 microgram/dL High 35-153 [facility] Comment on above: Performed By: #### 2 [id number] #### [facility] [address] [place] [address] Lab Miscellaneous-LCon 08-07 Test Code 216817 Invalid Interpretation Code [facility] Comment on above: Performed By: #### 1 [id number] #### [facility] [address] [place] [address] Test Name TPMT genotyping Invalid Interpretation Code [facility] Comment on above: Performed By: #### 1 [id number] #### [facility] [address] [place] [address] Lipid Panelon 08-07-2024 Cholesterol [Mass/Vol] 157 mg/dL Normal 120-200 [facility] Comment on above: Performed By: #### 2 [id number] #### [facility] [address] [place] [address] Cholesterol in HDL [Mass/Vol] 90 mg/dL Invalid Interpretation Code [facility] Comment on above: Result Comment: '>= 60 LOW RISK' '<= 40 HIGH RISK' Performed By: #### 2 [id number] #### [facility] [address] [place] [address] Cholesterol in LDL [Mass/Vol] 48 mg/dL Normal <=129 [facility] Comment on above: Performed By: #### 2 [id number] #### [facility] [address] [place] [address] Cholesterol in VLDL [Mass/Vol] 37 mg/dL Normal 7-40 [facility] Comment on above: Performed By: #### 2 [id number] #### [facility] [address] [place] [address] Triglyceride [Mass/Vol] 186 mg/dL High <=149 [facility] Comment on above: Performed By: #### 2 [id number] #### [facility] [address] [place] [address] Reference Laboratory Testing Ordered By: Chitra Krishnamurthy on 08-07-2024 Test Code 376176 1 Invalid Interpretation Code [facility] Test Name TPMT genotyping Invalid Interpretation Code [facility] TIBC Calculatedon 08-07-2024 Iron binding capacity [Mass/Vol] 305 microgram/dL Normal 250-400 [facility] Comment on above: Performed By: #### 1 [id number] #### [facility] [address] [place] [address] Transferrin [Mass/Vol] 218 mg/dL Normal 200-370 [facility] Comment on above: Performed By: #### 1 [id number] #### [facility] [address] [place] [address] Vit B12on 08-07-2024 Cobalamin (Vitamin B12) [Mass/Vol] 368 pg/mL Normal 50-1500 [facility] Comment on above: Performed By: #### 2 [id number] #### [facility] [address] [place] [address] Vitamin D 25 Hydroxyon 08-07 25-hydroxyvitamin D3 [Mass/Vol] 37.4 ng/mL Normal 30.0-100.0 [facility] Comment on above: Performed By: #### 5 [id number] #### [facility] [address] [place] [address] eGFRon 08-07-2024 eGFR 112 mL/min/1.73 m2 Normal >=59 [facility] Comment on above: Performed By: #### 1 [id number] #### [facility] [address] [place] [address] Gastroenterology Office/Clin ic Noteon 05-13-2024 Gastroenterology Office/Clinic [...] Known A (more content not included)... Normal [facility] Comment on above: Result Comment: Elec [...] large intestine, Print Label By Order Location, [id number] Lipid Panel, Blood, Routine collect, 04/10/24, Order [...] 2 Cap (more content not included)... Normal [facility] Provider Letteron 04-10-2024 Provider Letter Provider Letter April 10, 2024 GRACIELA SEVERINO [address] [place] [id number] : 1975 To Whom It May Concern, Please excuse above student from work. Date of Absence: From: _ To: _ Appointment Time In: _ Time Left Office: _ Restrictions: _ Comments: _ Sincerely, [facility] Normal [facility] Surgical Pathology Reporton 03-25-2024 Surgical Pathology Report [address] [address]- Surgical Pathology Report Collected Date/Time: 03/23/2024 09:18 [...] EDT Renata ARRIETA, Juma Yanez MD, Juma Mcadams Gross Description A: Received in formalin labeled [...] is entirely submitted in one cassette. (DC) DC:[facility] Microscopic Description A-E: Microscopic examination performed unless gross only specified. Normal [facility] Comment on above: Performed By: #### 4 [id number] #### [facility] [address] [place] [address] Main OR Intraoperative Recor don 03-24-2024 Main OR Intraoperative Record Main OR Intraoperative Record IntraOp Document Type FT Summary Primary Physician: Juma Yanez MD Finalized Date/Time: 03/24/24 11:55:57 Pt. Name: GRACIELA SEVERINO Alissa SullivanB./Sex: 1975 Male Med Rec #: [id number] Physician: Juma Yanez MD Financial #: [id number] Pt. Type: O Room/Bed: / Admit/Disch: 03/23/24 07:57:35 - 03/23/24 23:59:59 Institution: Case Times FT Entry 1 Patient Times In Room 03/23/24 09:09:00 Out Room 03/23/24 09:32:00 Procedure Times Start 03/23/24 09:14:00 Stop 03/23/24 09:30:00 Anesthesia Times Start 03/23/24 09:09:00 Stop 03/23/24 09:32:00 Time at [facility] 03/23/24 09:16:00 Last Modified By: Dihn Gonzalez RN 03/23/24 09:32:18 General Comments: 03/24/24 Chart opened to review and send charges [facility] CSFA Case Attendance FT Entry 1 Entry 2 Entry 3 Case Attendee Kerline PAPPAS, WARRANT SERVER, Queen Carlos NORWOOD, Oksana Santana Role Performed WARRANT SERVER Stereo Operator - Primary Staff - Other Time In [...] Given Participants Juma Yanez MD, Kerline PAPPAS, WARRANT SERVER, Humphrey Graham Painting Micala E Time Out Complete 03/23/24 09:11:00 Outcomes Met? Yes Last Modified By: Dinh Gnozalez RN 03/23/24 09:13:51 Post-Care Text: The patient [...] a res (more content not included)... Normal [facility] Discharge Instructionson Discharge Instructions Discharge Instructions GRACIELA SEVERINO :1975 Visit Date:03/23/2024 Inpatient Discharge Instructions Your Care Team Admitting Physician - Juma Yanez MD Referring Physician - Juma Yanez MD. Reason [...] any problems. Where: [address], [address] [place] [address]- [phone] Business (1) Medications What How Much When [...] signs: B (more content not included)... Normal [facility] Comment on above: Result Comment: Elec tronically Signed By: Efren NORWOOD, Zoe\.donavan\Date and Time Signed: 03/23/24 09:44 EDT Main OR PACU I Recordon 02-24 Main OR PACU I Record Main OR PACU I Record PACU Phase I Document Type FT Summary Primary Physician: Renata ARRIETA, Juma Mcadams Finalized Date/Time: 03/23/24 10:19:43 Pt. Name: GRACIELA SEVERINO Alissa Bazan./Sex: 1975 Male Med Rec #: [id number] Physician: Juma Yanez MD Financial #: [id number] Pt. Type: O Room/Bed: / Admit/Disch: 03/23/24 [...] By: Zoe Schwartz RN 03/23/24 10:19 Normal [facility] Main OR Preoperative Recordo n 03-23-2024 Main OR Preoperative Record Main OR Preoperative Record Holding Area Document Type FT Summary Primary Physician: Juma Yanez MD Finalized Date/Time: 03/23/24 08:09:43 Pt. Name: MAYCOLGRACIELA/Sex: 1975 Male Med Rec #: [id number] Physician: Juma Yanez MD Financial #: [id number] Pt. Type: O Room/Bed: / Admit/Disch: 03/23/24 [...] By: Dinh Gonzalez RN 03/23/24 08:09 Normal [facility] CT Abdomen/Pelvis w/contrast (enterography)on 03-17-2024 CT [...] Renard Guzman DO Transcribed by: DESIRAE Technologist: DESIRAER Technical Comments GFR (mL/min/1/73m2) age Contrast: Isovue 300 Contrast amount in ml's: 100 Oral contrast amount in ml's: 1350 Normal [facility] Ambulatory Visit Summaryon 0 02-28-2024 Ambulatory Visit Summary Ambulatory Visit Summary MAYCOLLULUChari Maxwell :1975 Visit Date:02/28/2024 Ambulatory Visit Instructions Your Diagnosis Crohn's disease of both small and large intestine Acid reflux Colon polyp Loose stools Your Care Team Attending Physician - Renata ARRIETA, Juma Mcadams Primary Care Physician - Maycol ARRIETA, Jaquan Marcelino This Is Your Medications List Contact [...] Follow-Up Appointments Saturday 8:00 AM EDT Where: [facility] You Need to Complete the Following C-Reactive Protein, Blood, Routine collect, 02/28/24, Order for future visit, Lab Collect, Crohn's disease of both small and large intestine Invalid Interpretation Code Colon polyp [facility] Gastroenterology Office/Clin ic Noteon 02-28-2024 Gastroenterology Office/Clinic Note Gastroenterology Office/Clinic Note Chief Complaint 1 episode February 02 anal pain and pressure. Patient went to ER. HPI Staff This is a 49 year old male who presents today for a 1 year follow up. Due for Colonoscopy 2024. Denies Blood Thinners Denies GLP-1 Agonists Last [...] and vitam (more content not included)... Normal [facility] Comment on above: Result Comment: Elec tronically Signed By: Renata ARRIETA, Juma Mclaughlin.br\Date and Time Signed: 02/28/24 08:33 EDT Provider Letteron 02-04-2024 Provider Letter (Inserted Image. Rut ble to display) February 04, 2024 [place] [address] : 1975 Dear Graciela, We have been [...] your prompt attention to this matter. Sincerely, [facility] [phone] Normal [facility] Vital Signs Date Time Vital Sign Value Performing Clinician Facility 11-23-2024 08:24-0400 Body height 185.4 cm Kiya Acevedo PA Work Phone: [facility] 11-23-2024 08:24-0400 Body mass index (BMI) [Ratio] 22.14 kg/m2 Kiya Acevedo PA Work Phone: [facility] 11-23-2024 08:24-0400 Body temperature 98.01 [degF] Kiya Acevedo PA Work Phone: [facility] 11-23-2024 08:24-0400 Body weight 76.11 kg Kiya Acevedo PA Work Phone: [facility] 11-23-2024 08:24-0400 Diastolic blood pressure 88 mm[Hg] Kiya Acevedo PA Work Phone: [facility] 11-23-2024 08:24-0400 Heart rate 92 /min Kiya Acevedo PA Work Phone: [facility] 11-23-2024 08:24-0400 SaO2% (BldA) [Mass fraction] 98 % Kiya Acevedo PA Work Phone: [facility] 11-23-2024 08:24-0400 Systolic blood pressure 144 mm[Hg] Kiya RUDOLPH Work Phone: [facility] 09-16-2024 09:03-0500 Body height 185.4 cm Yohana Sewell MD Work Phone: [facility] 09-16-2024 09:03-0500 Body mass index (BMI) [Ratio] 22.82 kg/m2 Yohana Sewell MD Work Phone: [facility] 09-16-2024 09:03-0500 Body weight 78.47 kg Yohana Sewell MD Work Phone: [facility] 08-14-2024 08:18-0500 Diastolic blood pressure 103 mm[Hg] [facility] 08-14-2024 08:18-0500 Mean blood pressure 122 mm[Hg] [facility] 08-14-2024 08:18-0500 Systolic blood pressure 160 mm[Hg] [facility] 08-14-2024 08:14-0500 Blood Pressure Location [facility] 08-14-2024 08:14-0500 Diastolic blood pressure 102 mm[Hg] [facility] 08-14-2024 08:14-0500 Heart rate 85 /min [facility] 08-14-2024 08:14-0500 Systolic blood pressure 158 mm[Hg] [facility] 04-10-2024 08:18-0400 Diastolic blood pressure 84 mm[Hg] [facility] 04-10-2024 08:18-0400 Mean blood pressure 98 mm[Hg] [facility] 04-10-2024 08:18-0400 Systolic blood pressure 125 mm[Hg] [facility] 04-10-2024 08:00-0400 Blood Pressure Location [facility] 04-10-2024 08:00-0400 Diastolic blood pressure 90 mm[Hg] [facility] 04-10-2024 08:00-0400 Heart rate 89 /min [facility] 04-10-2024 08:00-0400 Systolic blood pressure 135 mm[Hg] [facility] 03-23-2024 09:55-0400 Blood Pressure Location [facility] 03-23-2024 09:55-0400 Diastolic blood pressure 80 mm[Hg] [facility] 03-23-2024 09:55-0400 Heart rate 90 /min [facility] 03-23-2024 09:55-0400 Mean blood pressure 93 mm[Hg] [facility] 03-23-2024 09:55-0400 Respiratory rate 17 /min [facility] 03-23-2024 09:55-0400 SaO2% (BldA) [Mass fraction] 99 % [facility] 03-23-2024 09:55-0400 Systolic blood pressure 118 mm[Hg] [facility] 03-23-2024 09:45-0400 Blood Pressure Location [facility] 03-23-2024 09:45-0400 Diastolic blood pressure 80 mm[Hg] [facility] 03-23-2024 09:45-0400 Heart rate 95 /min [facility] 03-23-2024 09:45-0400 Mean blood pressure 92 mm[Hg] [facility] 03-23-2024 09:45-0400 Respiratory rate 15 /min [facility] 03-23-2024 09:45-0400 SaO2% (BldA) [Mass fraction] 97 % [facility] 03-23-2024 09:45-0400 Systolic blood pressure 116 mm[Hg] [facility] 03-23-2024 09:40-0400 Blood Pressure Location [facility] 03-23-2024 09:40-0400 Diastolic blood pressure 63 mm[Hg] [facility] 03-23-2024 09:40-0400 Heart rate 89 /min [facility] 03-23-2024 09:40-0400 Mean blood pressure 75 mm[Hg] [facility] 03-23-2024 09:40-0400 Respiratory rate 19 /min [facility] 03-23-2024 09:40-0400 SaO2% (BldA) [Mass fraction] 95 % [facility] 03-23-2024 09:40-0400 Systolic blood pressure 98 mm[Hg] [facility] 03-23-2024 09:33-0400 Body temperature 98.06 [degF] [facility] 03-23-2024 09:30-0400 Respiratory rate 18 /min [facility] 03-23-2024 09:25-0400 Respiratory rate 18 /min [facility] 03-23-2024 09:20-0400 Respiratory rate 18 /min [facility] 03-23-2024 08:16-0400 Body temperature 98.78 [degF] [facility] 02-28-2024 08:07-0400 Diastolic blood pressure 91 mm[Hg] [facility] 02-28-2024 08:07-0400 Mean blood pressure 109 mm[Hg] [facility] 02-28-2024 08:07-0400 Systolic blood pressure 144 mm[Hg] [facility] 02-28-2024 08:03-0400 Blood Pressure Location [facility] 02-28-2024 08:03-0400 Diastolic blood pressure 95 mm[Hg] [facility] 02-28-2024 08:03-0400 Systolic blood pressure 148 mm[Hg] [facility] 02-21-2024 08:41-0400 Diastolic blood pressure 105 mm[Hg] [facility] [facility] 02-21-2024 08:41-0400 Mean blood pressure 124 mm[Hg] [facility] 02-21-2024 08:41-0400 Systolic blood pressure 163 mm[Hg] [facility] 02-21-2024 08:37-0400 Blood Pressure Location [facility] 02-21-2024 08:37-0400 Diastolic blood pressure 106 mm[Hg] [facility] 02-21-2024 08:37-0400 Heart rate 56 /min [facility] 02-21-2024 08:37-0400 Respiratory rate 16 /min [facility] 02-21-2024 08:37-0400 Systolic blood pressure 164 mm[Hg] [facility] 12-20-2022 13:33-0400 Blood Pressure Location Ortiz SALAM [facility] 12-20-2022 13:33-0400 Diastolic blood pressure 86 mm[Hg] Ortiz SALAM [facility] 12-20-2022 13:33-0400 Heart rate 78 /min Ortiz SALAM [facility] 12-20-2022 13:33-0400 Respiratory rate 16 /min Ortiz SALAM [facility] 12-20-2022 13:33-0400 Systolic blood pressure 122 mm[Hg] Ortiz SALAM [facility] Encounters Encounter Date Encounter Type Care Provider Facility Start: 01-29-2025 ambulatory Juma Calvin lity:[facility] Start: 12-04-2024 Preoperative state Kiya RUDOLPH Work Phone: [facility] Start: 11-27-2024 End: 11-30-2024 Clinisync Result Encounter Generic External Data Provider [facility] Unsolicited Start: 11-27-2024 End: 11-30-2024 Clinisync Result Encounter Generic External Data Provider [facility] Unsolicited Start: 11-23-2024 End: 11-23-2024 Bamboo flowsheet Kiya RUDOLPH Work Phone: [facility] Start: 11-23-2024 End: 11-23-2024 Bamboo flowsheet Kiya RUDOLPH Work Phone: [facility] Start: 11-23-2024 End: 11-23-2024 Office outpatient visit 25 minutes Kiya RUDOLPH Work Phone: [facility] Comment on above: 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); Foot drop, right; History of Crohn's disease; Preoperative clearance Start: 11-23-2024 End: 11-23-2024 Preoperative state Kiya Acevedo PA Work Phone: [facility] Start: 11-23-2024 End: 11-23-2024 ambulatory KIYA ACEVEDO Not Available Start: 10-15-2024 End: 10-15-2024 Bamboo flowsheet Anna A Felter MULT AU MATIC OPERATOR-INSTRUCTIONAL COACH Work Phone: [facility] Start: 10-15-2024 End: 10-15-2024 Bamboo flowsheet Anna A Felter MULT AU MATIC OPERATOR-INSTRUCTIONAL COACH Work Phone: [facility] Start: 10-15-2024 End: 10-15-2024 Patient encounter procedure Gomez Sebastian DO Work Phone: [facility] Comment on above: Lumbar radiculopathy (Primary Dx) Start: 10-15-2024 End: 10-15-2024 ambulatory GOMEZ SEBASTIAN Not Available Start: 10-15-2024 End: 10-15-2024 Office outpatient visit 15 minutes Nana A Felter MULT AU MATIC OPERATOR-INSTRUCTIONAL COACH Work Phone: [facility] Comment on [...] outpatient visit 15 minutes Anna A Felter M[employer] AU MATIC OPERATOR-INSTRUCTIONAL COACH Work Phone: [facility] Comment on above: Other atopic dermati tis Start: 09-17-2024 End: 09-17-2024 ambulatory ANNA A FELTER Not Available Start: 09-16-2024 End: 09-16-2024 Bamboo flowsheet Yohana Sewell MD Work Phone: [facility] Start: 09-16-2024 End: 09-16-2024 Bamboo flowsheet Yohana Sewell MD Work Phone: [facility] Start: 09-16-2024 End: 09-16-2024 Office outpatient new 30 minutes Yohana Sewell MD Work Phone: [facility] Comment on above: Other atopic dermati tis Start: 09-16-2024 End: 09-16-2024 ambulatory YOHANA SEWELL Not Available Start: 08-14-2024 End: 08-14-2024 ambulatory Juma Yanez Facility:[facility] Start: 08-14-2024 End: 08-14-2024 Patient encounter procedure [facility] Start: 08-12-2024 End: 08-12-2024 Bamboo flowsheet Anna A Felter MULT AU MATIC OPERATOR-INSTRUCTIONAL COACH Work Phone: [facility] Start: 08-12-2024 End: 08-12-2024 Bamboo flowsheet Anna A Felter M[employer] AU MATIC OPERATOR-INSTRUCTIONAL COACH Work Phone: [facility] Start: 08-12-2024 End: 08-12-2024 Telephone encounter Anna A Felter M[employer] AU MATIC OPERATOR-INSTRUCTIONAL COACH Work Phone: [facility] Start: 08-12-2024 End: 08-12-2024 Office outpatient visit 25 minutes Anna A Felter M[employer] AU MATIC OPERATOR-INSTRUCTIONAL COACH Work Phone: [facility] Comment on above: Other atopic dermati tis Start: 08-12-2024 End: 08-12-2024 ambulatory ANNA A FELTER Not Available Start: 08-07-2024 End: 08-07-2024 ambulatory Juma Yanez Facility:[facility] Start: 08-07-2024 End: 08-07-2024 Patient encounter procedure [facility] Start: 04-21-2024 End: 04-21-2024 Refill Margaret Guevara MD Work Phone: [facility] Comment on above: Gastroesophageal ref lux disease, unspecified whether esophagitis present Start: 04-10-2024 End: 04-10-2024 ambulatory Juma Yanez Facility:[facility] Start: 04-10-2024 End: 04-10-2024 Patient encounter procedure Juma Yanez [facility] Start: 03-23-2024 End: 03-23-2024 ambulatory Juma Yanez Facility:[facility] Start: 03-23-2024 End: 03-23-2024 Patient encounter procedure [facility] Start: 03-13-2024 End: 03-13-2024 ambulatory Juma Yanez Facility:[facility] Start: 03-13-2024 End: 03-13-2024 Patient encounter procedure Juma [facility] Start: 03-02-2024 ambulatory Olivas Talal [facility] Facility:[facility] Start: 02-28-2024 End: 02-28-2024 ambulatory Juma Yanez Facility:[facility] Start: 02-28-2024 End: 02-28-2024 Patient encounter procedure Juma Yanez [facility] Start: 02-21-2024 End: 02-21-2024 ambulatory Olivas Talal [facility] Facility:[facility] Start: 02-21-2024 End: 02-21-2024 Patient encounter procedure Olivas Talal [facility] Start: 01-27-2024 End: 01-27-2024 ambulatory RAQUEL DEUTSCH Not Available Start: 01-17-2024 End: 01-17-2024 ambulatory ANNA CARR Not Available Start: 12-20-2022 End: 12-20-2022 Patient encounter procedure [place] [facility] Start: 01-12-2022 End: 01-12-2022 Patient encounter procedure Amanda Houser [facility] Start: 12-26-2021 End: 12-26-2021 Lab Drop off [facility] Start: 12-18-2021 End: 12-18-2021 Patient encounter procedure [place] Start: 11-14-2020 End: 03-30-[address] NONE LISTED REQUEST Facility: Procedures Date Procedure Procedure Detail Performing Clinician Start: 11-27-2024 XR CHEST 2V Generic Ex ternal Data Provider Start: 11-27-2024 ALL BASIC METABOLIC PANEL Generic External Data Provider Start: 11-27-2024 ECG 12-LEAD Generic Ex ternal Data Provider Start: 10-15-2024 End: 10-15-2024 Needle emg ea extremty w/paraspinl area complete Gomez Sebastian DO Work Phone: Start: 10-14-2024 MR LUMBAR SPINE WO CON Generic External Data Provider Start: 03-23-2024 Colonoscopy Anna Erica lter MULT AU MATIC OPERATOR-INSTRUCTIONAL COACH Work Phone: Start: 03-23-2024 Colonoscopy Juma jackson Start: 03-28-2021 Colonoscopy Margaret arizmendi MD Work Phone: Start: 03-28-2021 Colonoscopy Angel Peguero Comment on above: biopsies, terminal i leitis inflammation with ulcers, transverse colon erosions, and descending erosions, polyp x1 Start: 01-17-2021 Colsc flx w/rmvl of tumor polyp lesion snare tq Angel SMITH Start: 01-17-2021 Endoscopy and biopsy of upper gastrointestinal tract Angel SMITH Knee region structur e (body structure) [facility] Oral [facility] Tonsillectomy and adenoidectomy [facility] Plan of Treatment Date Care Activity Detail Author Start: 03-23-2034 Screening for malign ant neoplasm of colon [facility] Start: 03-28-2031 Screening for malign ant neoplasm of colon [facility] Start: 10-19-2025 End: 10-19-2025 Patient encounter procedure 10/19/2025 8:30 AM EST Office Visit [facility] [address] [place] [id number] Anna Carr, MULT AU MATIC OPERATOR-INSTRUCTIONAL COACH [address] [place] [address] [facility] Start: 04-26-2025 Influenza vaccination Influenz a Vaccine (Season Ended) [facility] Start: 11-23-2024 End: 11-23-2024 Patient encounter procedure 11/23/2024 8:30 AM EDT [facility] [address] [place] [address] Kiya Acevedo PA [address] [place] [address] Arrived [facility] Comment on above: Arrived Start: 10-15-2024 End: 10-15-2024 Patient encounter procedure [facility] Comment on above: Arrived Start: 09-17-2024 End: 09-17-2024 Patient encounter procedure 09/17/2024 8:30 AM EST Office Visit [facility] [address] [place] [phone] Anna Carr, MULT AU MATIC OPERATOR-INSTRUCTIONAL COACH [address] [place] [address] [facility] Start: 09-16-2024 End: 09-16-2024 Patient encounter procedure [facility] Comment on above: Other atopic dermati tis Start: 09-03-2024 End: 09-03-2024 Patient encounter procedure 09/03/2024 8:40 AM EST Office Visit [facility] [address] [place] [phone] Anna Carr, MULT AU MATIC OPERATOR-INSTRUCTIONAL COACH [address] [place] [address] [facility] Start: 08-12-2024 End: 08-12-2024 Patient encounter procedure 08/12/2024 8:30 AM EST Office Visit [facility] [address] [place] [address] Anna Carr, MULT AU MATIC OPERATOR-INSTRUCTIONAL COACH [address] [place] [address] Arrived [facility] Comment on above: Arrived Start: 04-26-2024 Influenza vaccination Influenza Vacc ine (#1) [facility] Start: 1975 Screening for malign ant neoplasm of colon [facility] Aerobic culture Aerobic culture Microbiology Timed Other atopic dermatitis Release Upon Ordering for 1 Occurrences starting 08/12/2024 [facility] Work Phone: Comment on above: Release Upon Orderin g for 1 Occurrences starting 08/12/2024 Immunizations Immunization Date Immunization Notes Care Provider Janiya mojica 12-06-2020 SARS-CoV-2 (COVID-19 ) mRNA BNT-162b2 vax Angel SMITH [facility] 11-14-2020 SARS-CoV-2 (COVID-19 ) mRNA BNT-162b2 vax Angel SMITH [facility] NEGATED: Highlighted row has not occurred!08-14-2024 influenza virus vaccine, unspecified formulation Mohamad Mouchli [facility] NEGATED: Highlighted row has not occurred!04-10-2024 influenza virus vaccine, unspecified formulation Mohamad Mouchli [facility] NEGATED: Highlighted row has not occurred!10-30-2021 influenza virus vaccine, unspecified formulation [facility] Payers Date Payer Category Payer [facility] Shield BCBS [id number] 2022 Unknown BCBS BCBS xxxxxx [id number] 2022-Present [phone] [address] [place] [address] [id number] 2022 Unknown [id number] 1975 Unknown [id number] 2.16.840.1.478371.3.579. 2. 1975 Unknown [id number] 2.16.840.1.390269.3.579. 2. 1974 Unknown [id number] 2.16.840.1.588100.3.579. 2. 1974 Unknown [id number] 2.16.840.1.722590.3.579. 2. 1974 Unknown [id number] 2.16.840.1.853662.3.579. 2. 1974 Unknown [id number] 2.16.840.1.562832.3.579. 2 1974 Unknown [id number] 2.16.840.1.977377.3.579. 2 1974 Unknown [id number] 2.16.840.1.664811.3.579. 2 1974 Unknown [id number] 2.16840.1.848400.3.579. 2 1974 Unknown [id number] 2.16840.1.594176.3.579. 2 1974 Unknown [id number] 2.16.840.1.299083.3.579. 2 1974 Unknown [id number] 2.16.840.1.442146.3.579. 2.1258 1974 Unknown [id number] 2.16.840.1.316647.3.579. 2.1258 1974 Unknown [id number] 2.16.840.1.978796.3.579. 2.1258 1974 Unknown [id number] 2.16.840.1.852878.3.579. 2.1258 1974 Unknown [id number] 2.16.840.1.445348.3.579. 2.1258 1974 Unknown [id number] 2.16.840.1.112423.3.579. 2.1259 1974 Unknown [id number] 2.16.840.1.141241.3.579. 2.1259 1974 Unknown [id number] 2.16.840.1.699532.3.579. 2.9 1974 Unknown [id number] 2.16.840.1.070086.3.579. 2.1259 1959 Self-pay Unknown [id number] 2.16.840.1.527452.3.579. 2.593 Social History Date Type Detail Facility Start: 10-30-2021 End: 08-14-2024 Tobacco smoking status Light tobacco smoker (finding) [facility] Tobacco smoking status Never [facility] Start: 02-21-2024 End: 11-23-2024 Sex Assigned At Male [facility] Start: 08-26-2009 Tobacco smoking stat [facility] Smokes tobacco daily [facility] Start: 08-26-2009 History of tobacco use Cigarette Smo ker [facility] Start: 06-14-2023 End: 11-23-2024 Cigarettes smoked current (pack per day) - Reported 0.5 [facility] Start: 06-14-2023 Tobacco use and exposure Smokeless tobacco non-user [facility] Start: 02-21-2024 End: 11-23-2024 Alcoholic beverage intake Current drinker of alcohol (finding) [facility] Start: 06-14-2023 Alcohol Comment 10 or more dri nks on a typical day/ 4 or more times a week. [facility] Start: 1975 Sex assigned at Not on file [facility] Functional Status Date Assessment Result Facility 08-14-2024 Functional Status N/A [facility] 04-10-2024 Functional Status N/A [facility] 03-23-2024 Functional Status N/A [facility] 02-28-2024 Functional Status N/A [facility] 02-21-2024 Functional Status N/A [facility] 12-20-2022 Functional Status N/A [facility] Clinical Notes 10-30-2021 to 12-04-2024 RONNI Stanford - 12/04/2024 8:50 AM EDTRONNI Stanford - 11/23/2024 8:30 AM Robyn Sebastian DO - 10/15/2024 11:00 AM Canelo Carr, MULT AU MATIC OPERATOR-INSTRUCTIONAL COACH - 10/15/2024 9:10 AM EST Note Date & Type Note Facility 12-04-2024 History of Presen t illness Narrative Associated Problem(s): Preoperative clearance Reviewed Labs and EKG and Chest xray Surgical clearance form completed and faxed Surgical Clearance granted Images from the original note were not included. Graciela Severino is a 49 y.o. male presents with chief complaint of Pre-op Exam HPI: History of Present Illness The patient is a 49-year-old male who presents for a preoperative evaluation. He reports no current health concerns and is scheduled for surgery on 12/08/2024. A chest x-ray has been ordered at [facility], which he plans to complete this Saturday. He has not received any specific instructions regarding preoperative preparations from Dr. De Guzman's office. 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 He does not engage in heavy lifting. He is scheduled for surgery on Saturday and plans to return to work the following Saturday or Saturday night. He has undergone anesthesia approximately 12 times without any complications. Over the past 6 months, he has had 3 procedures requiring anesthesia, including the extraction of 2 teeth and a colonoscopy due to his Crohn's disease. He has been advised to incorporate at least an hour of walking into his daily routine within a week post-surgery. He is not experiencing any pain currently but reports an inability to lift his right foot, a condition diagnosed as drop foot by his coal sample tester. An EMG test revealed pressure on the nerve from the L5 vertebra, leading to a decision to remove the L5 and insert a bolt to alleviate the pressure and restore nerve function. His weight fluctuates between 172 pounds, depending on his health status. Prior to the onset of Crohn's disease, he weighed around 225 pounds. He is currently on a bi-weekly injection regimen, which has improved his digestion and resulted in hard stools. He continues to take Prilosec. He also takes Flomax, which aids his bladder function, although he occasionally needs to defecate to urinate due to pressure. SOCIAL HISTORY The patient smokes. MEDICATIONS Current: Flomax, Prilosec MEDICATIONS: Current Outpatient Medications Medication Instructions diphenhydrAMINE-zinc acetate (Benadryl Extra Strength) cream Topical, 4 times daily PRN famotidine (PEPCID) 40 mg, Oral, Nightly [place]lima PushTouch 40 MG/0.8ML solution auto-injector omeprazole (PRILOSEC) 40 mg, Oral, Daily before breakfast, Do not crush or chew. tamsulosin (FLOMAX) 0.4 mg, Oral, Daily ALLERGIES: No Known Allergies Review of Systems General: Denies fever, chills, fatigue, LOUIS or weight loss/gain CV: Denies CP, palpitations or swelling in legs Resp: denies cough, SOB or wheezing GI: Denies abd pain/n/v/c/d Skin: Denies rash Neuro: Denies LH or dizziness Medical, Surgical, Family, and Social History reviewed. OBJECTIVE: Visit Vitals BP 144/88 (BP Location: Left arm, Patient Position: Sitting, BP Cuff Size: Adult) Pulse 92 Temp 98 F (Temporal) Ht 6' 1 Wt 167 lb 12.8 oz SpO2 98% BMI 22.14 kg/m Smoking Status Every Day BSA 1.98 m BP Readings from Last 3 Encounters: 11/23/24 144/88 07/31/22 120/74 07/03/22 120/74 Wt Readings from Last 3 Encounters: 11/23/24 167 lb 12.8 oz 09/16/24 173 lb 02/21/24 175 lb 3.2 oz Physical Exam Physical Exam Carotid exam was performed. Lungs were auscultated. Heart was examined. Vital Signs Weight is 167. General: alert & oriented, NAD Head: NC/AT Oral Cavity: MMM Skin: warm, dry Heart: RRR, No m/r/g, S1S2 nml Lungs: CTA b/l Abdomen: soft, ND/NT, BS wnl Musculoskeletal: normal gait Extremities: no clubbing, cyanosis or edema Neurological: nonfocal Psych: mood/affect full range Results Testing EMG shows pressure from the L5 on the nerve. ASSESSMENT AND PLAN: Assessment & Plan 1. Preoperative evaluation. He is scheduled for surgery on 12/08/2024. He has been advised to reduce his smoking habit in preparation for the upcoming surgery. A chest x-ray, EKG, and blood work have been ordered. The results will be closely monitored and subsequently faxed to the requesting physician. 2. Crohn's disease. He is currently managing his Crohn's disease with bi-weekly injections, which have improved his symptoms significantly, allowing him to digest food better and have formed stools. He is not taking Pentasa anymore. 3. Drop foot. He has drop foot in his right foot due to pressure on the L5 nerve. Surgery is planned to remove the L5 and place a bolt to relieve the pressure and restore function. 4. Medication management. He continues to take Flomax and Prilosec. 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 documented in this encounter [facility] 10-15-2024 History of Presen t illness Narrative Images from the original note were not included. Reason for Appointment: EMG Patient: Graciela Severino : 1975 EMG Computer: [employer] Referring Physician: Ally Love PA-C EMG: NAKIA counter manager: Mikael HEBERT(R) Office Location: [place] Reason for EMG: c/o numbness/tingling in right foot, drop foot on right. No hx of DM. Not on blood thinners. Comments: Procedure was explained to the patient who expressed understanding. Patient appeared to have tolerated the test well despite some discomfort due to the nature of the test. Patient has an appointment with Neurosurgery tomorrow on 10/16/2024 in [place] and was given a copy of the report to bring to that appointment. documented in this encounter [facility] 10-15-2024 History of Presen t illness Narrative [...] year atopic derm documented in this encounter [facility] 09-17-2024 History of Presen t illness Narrative Follow up Diagnosis: Atopic Dermatitis Location: Feet Last visit: 3 weeks Symptoms: still peeling and breaking out Status: No change Treatments tried and failed: Betamethasone Dipro 0.05% cream, protopic ointment Current treatment: Was prescribed Prednisone 40 mg x 7 days then 20 mg x 7 day, benadryl and referral to [employer] [facility] (seen on 09/16/23) recommended doing patch testing [...] Visit: 3-4 weeks documented in this encounter [facility] 09-16-2024 History of Presen t illness Narrative Graciela AkbarEdna Maycol is a very pleasant 49 y.o. year [...] past 18 months. 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 documented in this encounter [facility] 08-12-2024 Telephone encount er Note Please inform patient that I sent in Benadryl cream to use for itching [facility] 08-12-2024 Miscellaneous Notes Formattin g of this note might be different from the original. Please inform patient that I sent in Benadryl cream to use for itching documented in this encounter [facility] 08-12-2024 History of Presen t illness [...] Asprin while taking medication. Referral sent to [employer] [facility]. Follow up in 3 weeks. Specimen 1 - Aerobic culture Account Name: [place] [facility] NPI: Anna Carr [id number] Related Procedures Ambulatory referral to Allergy Related Medications predniSONE (Deltasone) 20 MG tablet 2 tablets for 7 days and then 1 tablet for 7 days diphenhydrAMINE-zinc acetate (Benadryl Extra Strength) cream Apply topically 4 (four) times a day as needed for itching Next Visit: 3 weeks, follow up documented in this encounter [facility] 04-21-2024 Telephone encount er Note completed [facility] 04-21-2024 Miscellaneous Notes Formattin g of this note might be different from the original. completed documented in this encounter [facility] 03-23-2024 Evaluation + Plan note Extrac milton from: Title:ANES Post-operative Note---General Author: Tony Conn MD. Date:03/23/24 Plan Transfer/Discharge: Transfer/Discharge Discharge when meets criteria ( To home ). Extracted from: Title:ANES Pre-operative Note 2022 Author:Tony Titus. Date:03/23/24 Plan [place] [employer] (ASA) physical status classification: Class II. Anesthetic Preoperative Plan: Anesthesia General. Future Scheduled Tests Laboratory* Calprotectin, Fecal 02/28/24 * Vitamin D 25 Hydroxy 02/28/24 * CBC w/ Auto Diff 02/28/24 * Comprehensive Metabolic Panel 02/28/24 * C-Reactive Protein 02/28/24 [facility] 07-29-2024 Hospital Discharge instructions Patient [...] Up Care 02/28/2024 08:46:54 With:Juma Yanez Address: [address] [place] [address], [address] [place] [phone] Business (1) When: Unknown Comments:Call for any problems. [facility] 07-29-2024 NoteProgress Note-Physician Patient: GRACIELA SEVERINO Age: 49 years Sex: Male : 1975 Associated Diagnoses: None Author: Fabien ARRIETA, Tony Vera Postoperative Information Postoperative disposition: Postoperative disposition: To PACU. Optimetrix number: Optimetrix number [id number]. Anesthetic utilized: General. Health Status Allergies: Allergic Reactions (Selected) No Known Allergies Physical Examination VS/Measurements Pain Assessment: Controlled. General: Awake, Appropriate. Respiratory: Adequate air exchange. Cardiovascular: Stable. Neurological Assessment Anesthetic outcome No anesthetic complications noted. Adequate pain relief. Review / Management Condition: Stable. Plan Transfer/Discharge: Transfer/Discharge Discharge when meets criteria ( To home ).[facility]:Result Comment: Electronically Signed By: Faiben ARRIETA, Tony Vera\.br\Date and Time Signed: 03/23/24 10:05 EDT 03-23-2024 [...] is severe or gets worse throughout the day.[facility]07-[facility]24 NoteColonoscopy Procedure Report Patient: GRACIELA SEVERINO Age: 49 years Sex: Male : 1975 Associated Diagnoses: None Author: Juma Yanez MD Pre-Procedure Procedure Date 03/23/2024 09:33:00 . Procedure Type: Colonoscopy with biopsy. Procedure provider Performed by Juma Yanez MD. Current history and physical Documented on chart. Colonoscopy ([id number]) on 03/28/2021 at 46 Years. Comments: 03/28/2021 11:00 Raven Severino RN biopsies, terminal ileitis inflammation with ulcers, transverse colon erosions, and descending erosions, polyp x1 Esophagogastroduodenoscopy and biopsy ([id number]) on 01/17/2021 at 45 Years. Colonoscopy, flexible; with removal of tumor(s), polyp(s), or other lesion(s) by snare technique ([id number]) on 01/17/2021 at 45 Years. Knee ([id number]). Tonsillectomy and adenoidectomy ([id number]). Oral ([id number]).. Past Medical History No active or resolved past medical history items have been selected or recorded.. Family History Entire family history is negative.. Procedure History Colonoscopy ([id number]) on 03/28/2021 at 46 Years. Comments: 03/28/2021 11:00 Raven Severino RN biopsies, terminal ileitis inflammation with ulcers, transverse colon erosions, and descending erosions, polyp x1 Esophagogastroduodenoscopy and biopsy ([id number]) on 01/17/2021 at 45 Years. Colonoscopy, flexible; with removal of tumor(s), polyp(s), or other lesion(s) by snare technique ([id number]) on 01/17/2021 at 45 Years. Knee ([id number]). Tonsillectomy and adenoidectomy (510108441). Oral ([id number]).. Colorectal neoplasm risk assessment Average risk. Informed [...] QID, # 720 cap(s), Refills(s) 1, [id number], cm, 02/28/24 8:07:00 EDT, Height/Length Dosing, 79.2, kg, 02/28/24 8:07:00 EDT, Weight Dosing omeprazole 40 mg Cap-DR: 40 mg = 1 cap(s), Oral, Daily, # 90 cap(s), Refills(s) 0, [id number], cm, 10/30/21 10:41:00 EST, Height/Length [...] internal hemorrhoids on retroflexion Images Procedure images: Rec1_hd_video_2023__[id number].jpg Rec1_hd_video_2023__[id number].jpg Rec1_hd_video_2023__[id number].jpg Rec1_hd_video_2023__[id number].jpg Rec1_hd_video_2023__[id number].jpg Rec1_hd_video_2023__[id number].jpg Rec1_hd_video_2023__[id number].jpg Rec1_hd_video_2023__[id number]_[id number].jpg Rec1_hd_video_2023__[id number].jpg . Post-Procedure Complications: none. Estimated blood loss: Minimal. Specimens: sent to pathology. Devices/ implants: none left in place. Impression and Plan Colitis and ileitis consistent with hx of CD s/p biopsies internal hemorrhoids Recommendations: R (more content not included)...[facility] HospitalComment on above: Other Comment: Missing Attachment - attachment storage system not supported [id number] Can be viewed in source systemMissing Attachment - attachment storage system not supported [id number] Can be viewed [facility] systemMissing Attachment - attachment storage system not supported [id number] Can be viewed in source systemMissing Attachment - attachment storage system not supported [id number] Can be viewed in source systemMissing Attachment - attachment storage system not supported [id number] Can be viewed in source systemMissing Attachment - attachment storage system not supported [id number] Can be viewed in source systemMissing Attachment - attachment storage system not supported [id number] Can be viewed in source systemMissing Attachment - attachment storage system not supported [id number] Can be viewed in source systemMissing Attachment - attachment storage system not supported [id number] Can be viewed in [id number] Note Progress Note-Physician Patient: GRACIELA SEVERINO Age: 49 years Sex: Male : 1975 Associated Diagnoses: None Author: Fabien ARRIETA, Tony Vera Preoperative Information Anesthesia Preop Info: Time patient [...] QID, # 720 cap(s), Refills(s) 1, Pharmacy: [facility]/pharmacy #[id number], 182, cm, 02/28/24 8:07:00 EDT, Height/Length Dosing, 79.2, kg, 02/28/24 8:07:00 EDT, Weight Dosing omeprazole 40 mg Cap-DR: 40 mg = 1 cap(s), Oral, Daily, # 90 cap(s), Refills(s) 0, Pharmacy: [facility]/pharmacy #[id number], 182, cm, 10/30/21 10:41:00 EST, Height/Length [...] All Problems Acid reflux / SNOMED CT 119922003 / Confirmed Anal pain / SNOMED CT 685265073 / Confirmed Colon polyp / SNOMED CT 458237931 / Confirmed Crohn's disease of both small and large intestine / SNOMED CT 918870865 / Confirmed Essential hypertension / SNOMED CT 26235405 / Confirmed Gastroesophageal reflux disease / SNOMED CT 335486611 / Confirmed Indigestion / SNOMED CT 906381861 / Confirmed Loose stools / SNOMED CT 2863693510 / Confirmed Nausea and vomiting / SNOMED CT 29251877 / Confirmed, Active Problems (9) Acid reflux Anal pain Colon polyp Crohn's disease of both small and large intestine Essential hypertension Gastroesophageal reflux disease Indigestion Loose stools Nausea and vomiting Histories Past Medical History: No active or resolved past medical history items have been selected or recorded. Family History: Entire family history is negative. Procedure history: Colonoscopy ([id number]) on 03/28/2021 at 46 Years. Comments: 03/28/2021 11:00 EDT - Korey NORWOOD, Raven biopsies, terminal ileitis inflammation with ulcers, transverse colon erosions, and descending erosions, polyp x1 Esophagogastroduodenoscopy and biopsy ([id number]) on 01/17/2021 at 45 Years. Colonoscopy, flexible; with removal of tumor(s), polyp(s), or other lesion(s) by snare technique ([id number]) on 01/17/2021 at 45 Years. Knee ([id number]). Tonsillectomy and adenoidectomy (275979674). Oral ([id number]). Social History Social & Psychosocial Habits Tobacco [...] adequate air exchange. Cardiovas (more content not included)...[facility] HospitalComment on above:Result Comment: Electronically Signed By: Fabien ARRIETA, Tony Vera\.br\Date and Time Signed: 03/23/24 08:55 [id number] Evaluation + Plan note Future Scheduled Tests [...] Panel 04/10/24 * Vitamin B12 Level 04/10/24 [facility] 03-07-2022 Evaluation + Plan note [...] * Hepatitis B Surface Antigen [facility]16[facility]ments Appointment Date:02/05/2022 01:40:00 PM Scheduled Provider:Amanda Houser CNP Location:[facility] Appointment Type:[facility] Follow Up Future Scheduled Tests Laboratory* Calprotectin, [...] 02/16/21 * Hepatitis B Surface Antigen 02/16/21 [facility] Evaluation + Plan note Future Appointments Appointment Date:12/19/2023 01:00:00 PM Scheduled Provider:Angel SMITH MD Location:[facility] Appointment Type:[facility] Follow Up [facility] Evaluation + Plan note Future Appointments Appointment Date:03/23/2024 08:00:00 AM Scheduled Provider: Location:[facility] Appointment Type:Surgery FT Future Scheduled Tests Laboratory* Calprotectin, Fecal 02/28/24 * Vitamin D 25 Hydroxy 02/28/24 * CBC w/ Auto Diff 02/28/24 * Comprehensive Metabolic Panel 02/28/24 * C-Reactive Protein 02/28/24 Radiology* CT Abdomen/Pelvis w/contrast (enterography) 02/28/24 [facility] Evaluation + Plan note Future Appointments Appointment Date:03/23/2024 09:00:00 AM Scheduled Provider: Location:[facility] Appointment Type:Surgery FT Future Scheduled Tests Laboratory* Calprotectin, Fecal 02/28/24 * Vitamin D 25 Hydroxy 02/28/24 * CBC w/ Auto Diff 02/28/24 * Comprehensive Metabolic Panel 02/28/24 * C-Reactive Protein 02/28/24 [facility] App[facility]ments Appointment Date:08/14/2024 08:15:00 AM Scheduled Provider:Juma Yanez MD Location:[facility] Appointment Type:[facility] Follow Up Diagnostic Tests Pending * Quantiferon-TB [...] Panel 02/28/24 * C-Reactive Protein 02/28/24 [facility] note Future Appointments Appointment Date:11/06/2024 08:15:00 AM Scheduled Provider:Juma Yanez MD Location:[facility] Appointment Type:[facility] Follow Up Future Scheduled Tests Laboratory* Calprotectin, Fecal 08/14/24 * Calprotectin, Fecal 02/28/24 * Calprotectin, Fecal 04/10/24 * Vitamin D 25 Hydroxy 02/28/24 * CBC w/ Auto Diff 02/28/24 * Comprehensive Metabolic Panel 02/28/24 * C-Reactive Protein 02/28/24 * Hepatic Function Panel 11/09/24 [facility] Evaluation note* Diagnosis Other atopic dermatitis documented in this encounter [facility]* Diagnosis Gastroesophageal reflux disease, unspecified whether esophagitis present documented in this encounter [facility]* Diagnosis Other atopic dermatitis documented in this encounter [facility]* Diagnosis Other atopic dermatitis documented in this encounter [facility] note* Diagnosis Other atopic dermatitis documented in this encounter [facility] note* Diagnosis Lumbar radiculopathy- Primary Thoracic or lumbosacral neuritis or radiculitis, unspecified documented in this encounter [facility] note* Diagnosis Neuroforaminal stenosis of lumbosacral spine- Primary Foot drop, right Other acquired deformity of ankle and foot History of Crohn's disease Preoperative clearance Unspecified pre-operative examination documented in this encounter [facility] Healthcare[facility]ospital course Narrative No data available for this section [facility] No data available for this section [facility] No data available for this section [facility] Reason for visit Narrative* Other Medical (Routine) - Closed Specialty Diagnoses / Procedures Referred By Contac t Referred To Contact Neurology Diagnoses Low back pain, unspecified Procedures [place] NEEDLE EMG EA EXTREMTY W/PARASPINL AREA COMPLETE [place] NERVE CONDUCTION STUDIES 9-10 STUDIES Ally Love PA [address] [place] [address] Phone: tel: fax: Moe Greco MD [address] [place] [address] Phone: tel: fax: Referral ID Status Reason Start Date Expiration Date V isits Requested Visits Authorized [id number] Closed Perform Procedure 09/29/2024 03/28/2025 1 1 [facility] Healthcare Summary Purpose Family History No Family [...] and content) DATE CREATED AUTHOR 04/01/2021 [facility] DATE CREATED AUTHOR AUTHOR'S ORGANIZ ATION 03/27/2024 [facility] DATE CREATED AUTHOR AUTHOR'S ORGANIZ ATION 08/09/2024 [facility] DATE CREATED AUTHOR AUTHOR'S ORGANIZ ATION 08/11/2024 [facility] DATE CREATED AUTHOR AUTHOR'S ORGANIZ ATION 08/17/2024 [facility] DATE CREATED AUTHOR AUTHOR'S ORGANIZ ATION 08/20/2024 [facility] DATE CREATED AUTHOR AUTHOR'S ORGANIZ ATION 09/21/2024 [facility] DATE CREATED AUTHOR AUTHOR'S ORGANIZ ATION 10/30/2024 [facility] DATE CREATED AUTHOR AUTHOR'S ORGANIZ ATION 11/23/[address] [facility] dical Specialists [facility] Patient Care team informatio n (unrecognized section and content) Registered Massage Therapist Relationship Specialty Start Date End Date Jaquan Severino MD [address] [place] [address] PCP - General Family Medicine 01/01/23 Anna Carr, MULT AU MATIC OPERATOR-INSTRUCTIONAL COACH [address] [place] [address] PCP - [employer] 11/25/23 Registered Massage Therapist Relationship Specialty Start Date End Date Jaquan Severino MD [address] [place] [address] PCP - General Family Medicine 01/01/23 Anna Carr, MULT AU MATIC OPERATOR-INSTRUCTIONAL COACH [address] [place] [address] PCP - [employer] 11/25/23 Registered Massage Therapist Relationship Specialty Start Date End Date Jaquan Severino MD [address] [place] [address] PCP - General Family Medicine 01/01/23 Anan Carr, MULT AU MATIC OPERATOR-INSTRUCTIONAL COACH [address] [place] [address] PCP - [employer] 11/25/23 Registered Massage Therapist Relationship Specialty Start Date End Date Jaquan Severino MD [address] [place] [address] PCP - General Family Medicine 01/01/23 Anna Carr, MULT AU MATIC OPERATOR-INSTRUCTIONAL COACH [address] [place] [address] PCP - [employer] 11/25/23 Registered Massage Therapist Relationship Specialty Start Date End Date Jaquan Severino MD [address] [place] [address] PCP - General Family Medicine 01/01/23 Anna Carr, MULT AU MATIC OPERATOR-INSTRUCTIONAL COACH [address] [place] [address] PCP - [employer] 11/25/23 Registered Massage Therapist Relationship Specialty Start Date End Date Jaquan Severino MD [address] [place] [address] PCP - General Family Medicine 01/01/23 Registered Massage Therapist Relationship Specialty Start Date End Date Jaquan Severino MD [address] [place] [address] PCP - General Family Medicine 01/01/23 Registered Massage Therapist Relationship Specialty Start Date End Date Jaquan Severino MD [address] [place] [address] PCP - General Family Medicine 01/01/23 Registered Massage Therapist Relationship Specialty Start Date End Date Jaquan Severino MD [address] [place] [address] PCP - General Family Medicine 01/01/23 Registered Massage Therapist Relationship Specialty Start Date End Date Jaquan Severino MD [address] [place] [address] PCP - General Family Medicine 01/01/23 Registered Massage Therapist Relationship Specialty Start Date End Date Jaquan Severino MD [address] [place], [id number] PCP - General Family Medicine 01/01/23 Reason for Visit (unrecogniz ed section and content) Reason Comments Follow-up Reason Comments Med Refill Reason Comments new patient Pt states he has bee n getting red, dry patches for about two years. Currently his feet are peeling. Specialty Diagnoses / Procedures Referred By Contac t Referred To Contact Allergy Diagnoses Other atopic dermatitis Procedures [place] OFFICE/OUTPATIENT NEW HIGH MDM Anna Carr, MULT AU MATIC OPERATOR-INSTRUCTIONAL COACH [address] [place] [address] Phone: tel: fax: Yohana Sewell MD [address] [place] [address] Phone: tel: fax: Referral ID Status Reason Start Date Expiration Date V isits Requested Visits Authorized [id number] Closed Specialty Services Required 08/12/2024 02/08/2025 1 1 Reason Comments Follow-up Reason Comments Pre-op Exam FOR RECORDS PERTAINING TO PATIENTS WHO ARE [...] BE BASED ON THE PRIMARY CLINICAL RECORDS. [employer] provides no warranty or guarantee of the accuracy or completeness of information in this document.
--- NOTE | 2024-12-07 09:36 | ED.GENADUL1 ---
HPI HPI - General Adult General Chief complaint: Skin/Abscess/Foreign Body Stated complaint: lower extremity swelling Time Seen by Provider: 12/07/24 09:12 Source: patient Mode of arrival: walk-in Limitations: no limitations History of Present Illness HPI narrative: This 49-year-old male patient presents to the ED with chief complaint redness to his feet. He has a history of eczema. He also has dry hands and states that he has to use moisturizing lotion almost all over his entire body after each shower. He had presented to this emergency department on October 20 with a suspected spider bite to his foot and was placed on doxycycline orally and a topical steroid. The patient had had redness of his feet which got worse after the application of the steroid. He followed up with a manager basketball and was started on Vtama which helped his symptoms. He is scheduled for back surgery in the next couple days for spinal stenosis and is concerned that if he has infection in his feet then the surgery might be postponed. No infectious symptoms are reported. Patient also has a history of high blood pressure and has been on medication for it in the past. He is currently not on any antihypertensive medication. Related Data Home Medications ?Medication ?Instructions ?Recorded ?Confirmed omeprazole 40 mg capsule,delayed 40 mg PO DAILY 02/03/24 02/03/24 release tamsulosin 0.4 mg capsule 0.4 mg PO Q24H 02/03/24 02/03/24 Previous Rx's ?Medication ?Instructions ?Recorded alclometasone 0.05 % topical 1 applic topical BID PRN itching 10/20/24 ointment #15 grams doxycycline hyclate 100 mg capsule 100 mg PO BID 7 days #14 caps 10/20/24 Allergies Allergy/AdvReac Type Severity Reaction Status Date / Time No Known Drug Allergies Allergy Verified 12/07/24 09:25 Opioid HPI Opioid Management Most Recent Opioid Data: No Data to Display Review of Systems ROS Status of ROS 10 or more systems reviewed and unremarkable except as noted in history and below [facility] Social History Little interest or pleasure in doing things: not at all Feeling down, depressed, or hopeless: not at all Exam Narrative Exam Narrative: Alert and nondistressed. Mildly hypertensive with a blood pressure 166/105. HEENT exam is normal to inspection. There is no facial asymmetry. Neck is supple. Lung sounds are clear to auscultation bilaterally. Heart has regular rate and rhythm. Abdomen soft nontender. Patient has dry hand with some cracking of the webspaces in his hands. There is no sign of infection. He has diffuse erythema of both feet and ankles extending partially up the lower legs worse on the left side than the right. There is no underlying induration and no ascending lymphangitis. There is mild desquamation of the overlying skin consistent with eczema. I do not suspect cellulitis. Constitutional Vital Signs, click to edit/add: Last Vital Signs Temp 98.9 F 12/07/24 09:27 Pulse 100 H 12/07/24 09:27 Resp 16 12/07/24 09:27 BP 166/105 H 12/07/24 09:27 Pulse Ox 97 12/07/24 09:27 O2 Del Method Room Air 12/07/24 09:27 Course Vital Signs Vital signs: Vital Signs Temperature 98.9 F 12/07/24 09:27 Pulse Rate 100 H 12/07/24 09:27 Respiratory Rate 16 12/07/24 09:27 Blood Pressure 166/105 H 12/07/24 09:27 Pulse Oximetry 97 12/07/24 09:27 Oxygen Delivery Method Room Air 12/07/24 09:27 Temperature 98.9 F 12/07/24 09:27 Pulse Rate 100 H 12/07/24 09:27 Respiratory Rate 16 12/07/24 09:27 Blood Pressure 166/105 H 12/07/24 09:27 Pulse Oximetry 97 12/07/24 09:27 Oxygen Delivery Method Room Air 12/07/24 09:27 Medical Decision Making [facility] Narrative Medical decision making narrative: Patient presents with a flareup of his eczematous dermatitis involving mainly the feet which she has had off-and-on in the past. He was concerned about infection but his clinical presentation does not suggest infection. Since [employer] has worked for him in the past I advised him to continue using it he does have it at home. I have also advised him to contact his PCP because he will probably need to get back on his antihypertensive medication. He is free to return anytime for worsening symptoms. Discharge Plan Discharge Chief Complaint: Skin/Abscess/Foreign Body Clinical Impression: Asymptomatic hypertension Atopic dermatitis Qualifiers: Atopic dermatitis type: other Qualified Code(s): L20.89 - Other atopic dermatitis Patient Disposition: Home, Self-Care Time of Disposition Decision: 09:56 Condition: Good Mode of Transportation: Private Vehicle Prescriptions / Home Meds: No Action omeprazole 40 mg capsule,delayed release(DR/EC) 40 mg PO DAILY tamsulosin 0.4 mg capsule 0.4 mg PO Q24H doxycycline hyclate 100 mg capsule 100 mg PO BID 7 Days Qty: 14 0RF alclometasone 0.05 % ointment 1 applic topical BID PRN (Reason: itching) Qty: 15 0RF Print Language: Kazakh Instructions: Eczema (ED), Hypertension (ED) Additional Instructions: Use Vtama cream once a day. Follow-up with your physician for further management. Return for worsening symptoms. Referrals: JAQUAN KANG [Primary Care Provider] - 1 week
== END 2024-12-07 09:56 | disposition home or self-care (01) ==
PROVIDERS: Emergency Provider Emergency Medicine; PCP Family Medicine
DX: L20.89 Other atopic dermatitis (principal); I10 Essential (primary) hypertension
CPT/HCPCS: 99281